=== PATIENT | male | born 1945 | race Caucasian/White ===

== ENCOUNTER → 2018-04-16 | Outpatient (CLI) | payer MEDICARE ==
[2018-04-16 15:43] LABS: HCT 42.5 % (39.0-53.0); HGB 13.7 gm/dL (13.0-17.5); MCH 31.2 pg (25.0-35.0); MCHC 32.3 g/dL (31.0-37.0); MCV 96.6 fL (80.0-100.0); Mean Platelet Volume 8.4; Platelet Count 120 k/uL (150-450); RDW 13.4 % (11.5-15.5); WBC 6.5 k/uL (3.8-10.6)
[2018-04-16 15:59] LABS: Anion Gap 7 mmol/L; Blood Urea Nitrogen 11 mg/dL (9-20); Carbon Dioxide 31 mmol/L (22-30); Chloride 108 mmol/L (98-107); Glucose 137 mg/dL (74-99); Sodium 146 mmol/L (137-145)
== END | disposition home or self-care (01) ==
LOC: LABPAT 15:13
PROVIDERS: ATTEND Internal Medicine Clinical Cardiac Electrophysiology
DX: Z01.812 Encounter for preprocedural laboratory examination (principal); I25.5 Ischemic cardiomyopathy; I48.0 Paroxysmal atrial fibrillation
CPT/HCPCS: 36415; 80051; 82565; 82947; 84520; 85027

== ENCOUNTER 2018-04-25 10:41 | Day surgery (SDC) | payer MEDICARE ==
[2018-04-19 09:58] VITALS: BMI 23.1
[~2018-04-25 10:41] MED LIST: ceFAZolin 1,000 MG in SODIUM CHLORIDE 0.9% IRRIGATIO 250 ML IRRIGATION ONE; ceFAZolin IN SWFI 2 GM/20 ML SYRINGE IVP ONE
[2018-04-25] MEDS: LACTATED RINGERS 1,000 ML IV SCH ×2 (11:43→18:06)
[2018-04-25] MEDS ORDERED: FAMOTIDINE 20 MG/2 ML VIAL ONE (12:06)
[2018-04-25] MEDS ORDERED: FAMOTIDINE 20 MG/2 ML VIAL IV ONE (12:09)
[2018-04-25 13:25] LABS: INR 1.9 (<1.2)
[2018-04-25] MEDS ORDERED: LIDOCAINE 1% INJ 10MG/ML (20 ML MDV) ONE (14:33)
[2018-04-25] MEDS ORDERED: fentaNYL (PF) 50 MCG/ML 2 ML AMP ONE (14:34)
[2018-04-25] MEDS ORDERED: MIDAZOLAM 2 MG/2 ML VIAL ONE (14:34)
[2018-04-25] MEDS ORDERED: PROPOFOL 10 MG/ML 20 ML VIAL IV ONE (14:34)
[2018-04-25] MEDS ORDERED: diphenhydrAMINE 50 MG/ML 1 ML VIAL ONE (14:34)
[2018-04-25] MEDS ORDERED: LIDOCAINE 1% INJ 10MG/ML (20 ML MDV) SQ ONE ×2 (15:13)
[2018-04-25] MEDS ORDERED: HYDROcodone/APAP 5-325MG 1 EACH TAB PO PRN (15:46)
[2018-04-25] MEDS ORDERED: ACETAMINOPHEN TAB 325 MG TAB PO PRN (15:46)
[2018-04-25] MEDS ORDERED: WARFARIN 3 MG TAB PO SCH (18:00)
[2018-04-25] MEDS ORDERED: ACETAMINOPHEN IV (For NPO) 1,000 MG in EMPTY BAG 1 BAG IVPB ONE (18:00)
[2018-04-25] MEDS: SODIUM CHLORIDE 0.9% 1,000 ML IV SCH (19:13)
[2018-04-25] MEDS ORDERED: ATORVASTATIN 40 MG TAB PO SCH (21:00)
[2018-04-25] MEDS ORDERED: ISOSORBIDE MONONITRATE ER 30 MG TAB.ER.24H PO SCH (21:00)
[2018-04-25] MEDS ORDERED: LISINOPRIL 2.5 MG TAB PO SCH (21:00)
[2018-04-25] MEDS ORDERED: METOPROLOL TARTRATE 50 MG TAB PO SCH (21:00)
[2018-04-25] MEDS: ceFAZolin IN SWFI 2 GM/20 ML SYRINGE IVP SCH (22:32)
--- NOTE | 2018-04-25 23:59 | PCN ---
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 He is brought in for ICD generator change for normal battery depletion. Patient was brought to the EP lab in a fasting state. Written informed consent was obtained prior to the procedure. The left shoulder area was prepped and draped as per protocol. 1% lidocaine was used for local anesthesia. A 4 cm incision was made directly over the previous surgical site and carried down to the level of the generator. The generator was explanted. The new generator was implanted. Partial capsulectomy was performed. The new generator was implanted and the wound was closed in 3 layers and dressed per protocol. The new generator was a Medtronic Visiaf MRI model number [id number], serial number [id number]. The Medtronic ICD lead was a chronic lead was 65 cm, model #6947, serial number [id number]. R-waves were 12.6 mV. Pacing impedance of 2, pacing threshold 1 V at 0.5 milliseconds. DFT testing under anesthesia was performed. Shock and T-wave protocol was used to induce ventricular fibrillation. This was adequately and appropriately detected at least sensitivity and successfully internally defibrillated with a 10-joule shock. The charge time 2.1 seconds. Shocking impedance 46 ohms. No post shock noise. The device was then reprogrammed to detect the VT and VF at 176 and 214 beats per minute respectively. Long detection intervals were programmed. He has a single- chamber ICD. The patient tolerated the procedure well without any acute complications. MMODL / IJN: [id number] /
[2018-04-26] MEDS: ceFAZolin IN SWFI 2 GM/20 ML SYRINGE IVP SCH ×3 (03:20→14:34)
[2018-04-26] MEDS: SODIUM CHLORIDE 0.9% 1,000 ML IV SCH (03:21)
[2018-04-26 06:36] LABS: Anion Gap 6 mmol/L; Blood Urea Nitrogen 14 mg/dL (9-20); Calcium 9.3 mg/dL (8.4-10.2); Carbon Dioxide 25 mmol/L (22-30); Chloride 110 mmol/L (98-107); Glucose 85 mg/dL (74-99); Magnesium 1.8 mg/dL (1.6-2.3); Sodium 141 mmol/L (137-145)
[2018-04-26 07:45] VITALS: TEMP 97.1
--- NOTE | 2018-04-26 08:19 | P.DS ---
Providers Attending physician: Chris Cabrera Primary care physician: Chanda Pang [facility] Course: Patient is doing well. No chest discomfort dizziness lightheadedness or palpitations Vitals are stable Blood pressure 121/78 mmHg pulse rate in the 50s afebrile Normal heart sounds Normal breath sounds ICD site is healed well Impression ICD generator change yesterday. DFT at 10 J Known ischemic cardio myopathy left ventricular ejection fraction severely reduced at 20% Suggest Discharge home after completion of IV antibiotics. I gave the patient instructions and will see him in 5 days in the office and follow with Dr. Ly as before Plan - Discharge Summary Discharge Rx Participant: No New Discharge Prescriptions: Continue Warfarin [Coumadin] 2 mg PO TU Warfarin [Coumadin] 3 mg PO SUMOWE Isosorbide Mononitrate ER [Imdur] 30 mg PO HS Atorvastatin [Lipitor] 40 mg PO HS Lisinopril [Zestril] 1.25 mg PO HS Acetaminophen [Tylenol] 500 mg PO BID Metoprolol Tartrate [Lopressor] 100 mg PO HS Metoprolol Tartrate [Lopressor] 100 mg PO W/LUNCH Lansoprazole 30 mg PO W/LUNCH Ferrous Sulfate [Feosol] 325 mg PO DAILY Cholecalciferol [Vitamin D3] 1,000 unit PO DAILY Discharge Medication List Acetaminophen [Tylenol] 500 mg PO BID 07/17/16 [History] Atorvastatin [Lipitor] 40 mg PO HS 07/17/16 [History] Cholecalciferol [Vitamin D3] 1,000 unit PO DAILY 07/17/16 [History] Ferrous Sulfate [Feosol] 325 mg PO DAILY 07/17/16 [History] Isosorbide Mononitrate ER [Imdur] 30 mg PO HS 07/17/16 [History] Lansoprazole 30 mg PO W/LUNCH 07/17/16 [History] Lisinopril [Zestril] 1.25 mg PO HS 07/17/16 [History] Metoprolol Tartrate [Lopressor] 100 mg PO HS 07/17/16 [History] Metoprolol Tartrate [Lopressor] 100 mg PO W/LUNCH 07/17/16 [History] Warfarin [Coumadin] 2 mg PO TUSA 07/17/16 [History] Warfarin [Coumadin] 3 mg PO SUMOWETHFR 07/17/16 [History] Follow up Appointment(s)/Referral(s): Srinath Ly MD [STAFF PHYSICIAN] - 1 Week (Device clinic 5 days, Dr. Ly as previously scheduled) Activity/Diet/Wound Care/Special Instructions: No driving for 24 hours, keep wound dry for 5 days PATIENT EDUCATION MATERIAL Instructions following a heart rhythm device implant. 1. Keep dressing DRY for 5 DAYS. You may cover the area with Saran or Cling Wrap, prior to a shower. 2. The dressing will be removed in the Device Clinic at [facility]. Absorbable sutures were used to close the wound. 3. Avoid raising the left arm above the shoulder level. 1 week restriction 4. Avoid arm movements, like backscratching, rubbing the head, or pulling on a cord. 4 weeks restriction 5. Gentle range of motion movements of the shoulder, closest to the incision should be performed to avoid a frozen shoulder. (Pendulum exercises of the shoulder) 6. The opposite arm may be used freely. 7. Avoid driving for 7 days. 8. Avoid activities such as golfing, swimming, weed whacking, lifting more than 10 pounds weight, bowling, gymnastics and weight training/lifting. (4 weeks restriction) 9. Activities such as wood chopping with an axe, pull-ups in the gymnasium, power lifting, arc-welding, being close to home induction cooktops will always be a problem. 10. Arm sling is only a reminder not to raise the arm above the head. You do not need to keep the arm completely immobilized. Your free to move the arm and use it and for normal activities. In case of any problems, please call [facility] [place], @ [phone], Attention: Device Clinic Device clinic follow-up in 5 days Follow-up with primary team foreman as previously scheduled Discharge Disposition: HOME SELF-CARE
--- NOTE | 2018-04-26 09:49 | XR ---
EXAMINATION TYPE: XR chest 2V DATE OF EXAM: 04/26/2018 COMPARISON: 01/01/2013 INDICATION: Lead placement check TECHNIQUE: Frontal and lateral views of the chest are obtained. FINDINGS: The heart size is normal. The pulmonary vasculature is normal. The lungs are clear. Pacemaker overlies left chest. Pacemaker lead is stable in position. No pneumot horax is evident. Cost phrenic angle on the right is excluded from the [id number]. IMPRESSION: 1. No acute pulmonary process. 2. No pneumothorax with left-sided pacemaker present.
[2018-04-26 11:35] VITALS: BP 137/81; PULSE 68; RESP 16
[2018-04-26] MEDS: LACTATED RINGERS 1,000 ML IV SCH (11:53)
[2018-04-26] MEDS ORDERED: METOPROLOL TARTRATE 50 MG TAB PO SCH (12:30)
[2018-04-26] MEDS ORDERED: PANTOPRAZOLE 40 MG TABLET PO SCH (12:30)
[2018-04-27] MEDS ORDERED: WARFARIN 2 MG TAB PO SCH (18:00)
== END 2018-04-26 16:26 | disposition home or self-care (01) ==
LOC: CATHEP 10:41 → 3SCARD 15:41 → CATHEP 04-26 16:26
PROVIDERS: ATTEND Internal Medicine Clinical Cardiac Electrophysiology
DX: I25.5 Ischemic cardiomyopathy (principal); Z45.02 Encounter for adjustment and management of automatic implantable cardiac defibrillator; I25.10 Atherosclerotic heart disease of native coronary artery without angina pectoris; I10 Essential (primary) hypertension; E78.5 Hyperlipidemia, unspecified; Z72.0 Tobacco use; I25.2 Old myocardial infarction; I48.0 Paroxysmal atrial fibrillation; E05.80 Other thyrotoxicosis without thyrotoxic crisis or storm; T46.2X5A Adverse effect of other antidysrhythmic drugs, initial encounter; Z79.01 Long term (current) use of anticoagulants; Z79.899 Other long term (current) drug therapy; Z88.5 Allergy status to narcotic agent
CPT/HCPCS: 93641; 33262; 80048; 83735; 85610; 71046; C1722; J2250; J1200; J0690 ×3; J2001; J3010; J0131; J2704

== ENCOUNTER 2019-03-28 18:00 | Emergency (ER) | payer MEDICARE ==
[2019-03-28 18:13] VITALS: BP 146/87; PULSE 59; RESP 18; TEMP 97.6
[2019-03-28 19:48] LABS: Glucose,Whole Blood 111 mg/dL (75-99)
[2019-03-28 20:54] LABS: Appearance,Urine Clear (Clear); Bilirubin,Urine Negative (Negative); Blood,Urine Negative (Negative); Color,Urine Light Yellow; Glucose,Urine (UA) Negative (Negative); Ketones,Urine Negative (Negative); Leukocyte Esterase,Urine Negative (Negative); Nitrite,Urine Negative (Negative); Protein,Urine Negative (Negative); Specific Gravity,Urine 1.008 (1.001-1.035); Urobilinogen,Urine <2.0 mg/dL (<2.0)
--- NOTE | 2019-03-28 20:59 | ED ---
Male Urogenital HPI - General Source: patient Mode of arrival: ambulatory Limitations: no limitations <Lakeisha Moreira - Last Filed: 03/28/19 23:38> <Chelsie Davis - Last Filed: 04/01/19 16:16> - General Chief complaint: Urogenital Stated complaint: frequent urination Time Seen by Provider: 03/28/19 19:19 - History of Present Illness Initial comments: 73-year-old male with history of heart failure (noncompliant with furosemide) presents emergency room for chief complaint frequent urination. Patient states for 4 months he has had frequent urination. He states he can no longer take it. Patient states he had a urological evaluation yesterday was started on a new medication which she has taken a total of 1 dose and was told something may be wrong with his prostate. Patient does not know the name of the medication. Patient states he continues to have to P multiple times throughout the day. He states he needs this fixed. Patient denies hematuria dysuria patient denies history of diabetes. Patient denies any abdominal pain diarrhea or vomiting constipation, back pain rectal pain fever or any other associated signs. Patient has no other complaints, denies CP SOB or LE edema. (Lakeisha Moreira) - Related Data Home Medications Medication Instructions Recorded Confirmed Acetaminophen [Tylenol] 500 mg PO BID 07/17/16 04/19/18 Atorvastatin [Lipitor] 40 mg PO HS 07/17/16 04/25/18 Cholecalciferol [Vitamin D3 (25 1,000 unit PO DAILY 07/17/16 04/19/18 Mcg = 1000 Iu)] Ferrous Sulfate [Feosol] 325 mg PO DAILY 07/17/16 04/19/18 Isosorbide Mononitrate ER [Imdur] 30 mg PO HS 07/17/16 04/25/18 Lansoprazole 30 mg PO W/LUNCH 07/17/16 04/25/18 Lisinopril [Zestril] 1.25 mg PO HS 07/17/16 04/25/18 Metoprolol Tartrate [Lopressor] 100 mg PO HS 07/17/16 04/25/18 Metoprolol Tartrate [Lopressor] 100 mg PO W/LUNCH 07/17/16 04/25/18 Warfarin [Coumadin] 2 mg PO TUSA 07/17/16 04/25/18 Warfarin [Coumadin] 3 mg PO SUMOWETHFR 07/17/16 04/25/18 Allergies Allergy/AdvReac Type Severity Reaction Status Date / Time No Known Allergies Allergy Verified 03/28/19 18:13 Review of Systems ROS Other: All systems not noted in ROS Statement are negative. <Lakeisha Moreira - Last Filed: 03/28/19 23:38> ROS Other: All systems not noted in ROS Statement are negative. <Chelsie Davis - Last Filed: 04/01/19 16:16> ROS Statement: Those systems with pertinent positive or pertinent negative responses have been documented in the HPI. Past Medical History Past Medical History: CVA/TIA, Eye Disorder, Hearing Disorder / Deafness, Hyperlipidemia, Myocardial Infarction ([place]) Additional Past Medical History / Comment(s): stroke-facial and left hand weakness, constipation, see Dr Rick PADRON. RT MAC. DEG. Last Myocardial Infarction Date:: unknown History of Any Multi-Drug Resistant Organisms: None Reported Past Surgical History: AICD, Orthopedic Surgery Additional Past Surgical History / Comment(s): left hip surgery,. COLONOSCOPY Past Anesthesia/Blood Transfusion Reactions: No Reported Reaction Type of Cardiac Device: AICD Device Placement Date:: 2009 Past Psychological History: No Psychological Hx Reported Smoking Status: Current every day smoker Past Alcohol Use History: None Reported Past Drug Use History: None Reported - Past Family History Mother Family Medical History: No Reported History <Lakeisha Moreira - Last Filed: 03/28/19 23:38> General Exam Limitations: no limitations <Lakeisha Moreira - Last Filed: 03/28/19 23:38> - General Exam Comments Initial Comments: General: The patient is awake and alert, in no distress, and does not appear acutely ill. Eye: Pupils are equal, round and reactive to light, extra-ocular movements are intact. No nystagmus. There is normal conjunctiva bilaterally. No signs of icterus. Cardiovascular: There is a regular rate and rhythm. No murmur, rub or gallop is appreciated. Respiratory: Lungs are clear to auscultation, respirations are non-labored, breath sounds are equal. No wheezes, stridor, rales, or rhonchi. Gastrointestinal: Soft, non-distended, non-tender abdomen without masses or organomegaly noted. There is no rebound or guarding present. No CVA tenderness. Bowel sounds are unremarkable. Enlarged rectum no pain on GERARDO. Musculoskeletal: Normal ROM, no tenderness. Strength 5/5. Sensation intact. Radial pulses equal bilaterally 2+. Neurological: A&O x 3. CN II-XII intact grossly, There are no obvious motor or sensory deficits. Coordination appears grossly intact. Speech is normal. Skin: Skin is warm and dry and no rashes or lesions are noted. Psychiatric: Cooperative, appropriate mood & affect, normal judgment. (Lakeisha Moreira) Course Vital Signs 03/28/19 18:10 Temperature 97.6 F Pulse Rate 59 L Respiratory 18 Rate Blood Pressure 146/87 O2 Sat by Pulse 100 Oximetry Medical Decision Making <Lakeisha Moreira - Last Filed: 03/28/19 23:38> <Chelsie Davis - Last Filed: 04/01/19 16:16> - Medical Decision Making 73-year-old male presenting for evaluation of frequent urination 4 months. Blood glucose 111. Patient has had urological evaluation in last 48 hours. 50 minutes after patient urinated patient had 260 cc in his urinary bladder denies any discomfort. No distention or abdominal pain. Patient's urinalysis unremarkable-no ketones or glucose. Patient has no flank pain or CVA tenderness. Patient had enlarged prostate and digital rectal examination. Patient states he has had a new medication as prescribed by urology however has only taken 1 dose today. At this time I do feel patient's frequent urination may be due to enlargement of prostate. No clinical signs of urinary retention/overflow causing frequency. I discussed the case with attending provider Dr. Davis at this time she is agreeable with impression and discharge of patient. Patient agreeable with urology f/u, return parameters and PCP f/u. No further questions all questions were answered to the best of my ability prior to discharge. (Lakeisha Moreira) I was available for consultation in the emergency department. The history and physical exam were done by the midlevel provider. I was consulted for this patients care. I reviewed the case with the midlevel provider and based on their presentation of the patient, I agree with the assessment, medical decision making and plan of care as documented. Chart was dictated using Gill[employer] dictation software. Attempts were made to correct any dictation errors however some typographical errors may persist. (Chelsie Davis) - Lab Data Lab Results 03/28/19 03/28/19 Range/Units 19:45 20:40 POC Glucose (mg/dL) 111 H (75-99) mg/dL POC Glu Side Stitching Machine Operator ID Luann Desir Urine Color Light Yellow Urine Appearance Clear (Clear) Urine pH 7.0 (5.0-8.0) Ur Specific [place] 1.008 (1.001-1.035) Urine Protein Negative (Negative) Urine Glucose (UA) Negative (Negative) Urine Ketones Negative (Negative) Urine Blood Negative (Negative) Urine Nitrite Negative (Negative) Urine Bilirubin Negative (Negative) Urine Urobilinogen <2.0 (<2.0) mg/dL Ur Leukocyte Esterase Negative (Negative) Disposition Is patient prescribed a controlled substance at d/c from ED?: No Time of Disposition: 20:58 <Lakeisha Moreira - Last Filed: 03/28/19 23:38> <Chelsie Davis - Last Filed: 04/01/19 16:16> Clinical Impression: Urinary frequency, Enlarged prostate Disposition: HOME SELF-CARE Condition: Good Additional Instructions: Please use medication as discussed. Please follow-up with urology in the next week. Please return to emergency room if the symptoms increase or worsen or for any other concerns. Referrals: Chanda Pang MD [Primary Care Provider] - 1-2 days Mukul Garcia MD [STAFF PHYSICIAN] - 1-2 days
== END 2019-03-28 21:42 | disposition home or self-care (01) ==
LOC: EC 18:00
DX: N40.1 Benign prostatic hyperplasia with lower urinary tract symptoms (principal); R35.0 Frequency of micturition; E78.5 Hyperlipidemia, unspecified; I50.9 Heart failure, unspecified; I25.2 Old myocardial infarction; F17.200 Nicotine dependence, unspecified, uncomplicated; Z79.01 Long term (current) use of anticoagulants; Z79.899 Other long term (current) drug therapy; Z95.810 Presence of automatic (implantable) cardiac defibrillator; Z86.73 Personal history of transient ischemic attack (TIA), and cerebral infarction without residual deficits
CPT/HCPCS: 36415; 81003; 99284

== ENCOUNTER 2021-08-06 17:37 | Observation (INO) | payer MEDICARE ==
[2021-08-06 20:02] LABS: Basophils % (A) 1 %; Eosinophils # (A) 0.1 k/uL (0-0.7); Eosinophils % (A) 1 %; HCT 42.7 % (39.0-53.0); HGB 13.9 gm/dL (13.0-17.5); Lymphocytes % (A) 17 %; MCH 32.6 pg (25.0-35.0); MCHC 32.5 g/dL (31.0-37.0); MCV 100.2 fL (80.0-100.0); Macrocytosis Slight; Mean Platelet Volume 11.5; Monocytes # (A) 0.3 k/uL (0-1.0); Monocytes % (A) 5 %; Neutrophils # (A) 4.6 k/uL (1.3-7.7); Neutrophils % (A) 74 %; RBC 4.26 m/uL (4.30-5.90); RDW 14.3 % (11.5-15.5); WBC 6.2 k/uL (3.8-10.6)
--- NOTE | 2021-08-06 20:02 | XR ---
EXAMINATION TYPE: XR chest 2V DATE OF EXAM: 08/06/2021 COMPARISON: April 26, 2018 HISTORY: Short of breath TECHNIQUE: FINDINGS: Heart is enlarged. There is pulmonary vascular congestion. There is bilateral pleural effus ions. There is left axillary pacemaker. Bony thorax is intact. IMPRESSION: There is mild chronic congestive heart failure. Bilateral pleural effusions. Abnormalitie s are new compared to the old exam.
[2021-08-06 20:17] LABS: ALT 24 U/L (4-49); AST 33 U/L (17-59); African American GFR (CKD) >90 (>60 ml/min/1.73 sqM); Albumin 3.7 g/dL (3.5-5.0); Alkaline Phosphatase 42 U/L (38-126); Anion Gap 10 mmol/L; Blood Urea Nitrogen 19 mg/dL (9-20); Carbon Dioxide 22 mmol/L (22-30); Chloride 108 mmol/L (98-107); Glucose 116 mg/dL (74-99); INR 1.9 (<1.2); Non-African American GFR(CKD) 78 (>60 ml/min/1.73 sqM); Partial Thromboplastin Time 26.5 sec (22.0-30.0); Prothrombin Time 18.9 sec (9.0-12.0); Sodium 140 mmol/L (137-145); Total Bilirubin 0.9 mg/dL (0.2-1.3)
[2021-08-06 20:21] LABS: Platelet Count 86 k/uL (150-450)
--- NOTE | 2021-08-06 21:00 | ED ---
General Adult HPI - General Chief complaint: Dizziness Stated complaint: SOB Source: patient, family Mode of arrival: wheelchair Limitations: no limitations - History of Present Illness Initial comments: 75-year-old male with past history of CVA, A. fib, ischemic cardiomyopathy with EF of 20% presents emergency department with shortness of breath. States that starting last night he became lightheaded, dizzy, short of breath. Denies any chest pain. Does admit to a nonproductive cough. No nausea, vomiting or diarrhea. No sick contacts. Patient is not on any diuresis. States he was but was taken off of this medication 2 years ago. He denies any shocks from his defibrillator. No ripping or tearing sensation to his back. No fevers. Denies any headaches or visual changes. He is on Coumadin. No other alleviating, precipitating or modifying factors - Related Data Home Medications Medication Instructions Recorded Confirmed Atorvastatin [Lipitor] 40 mg PO DAILY 07/17/16 08/06/21 Ferrous Sulfate [Feosol] 325 mg PO DAILY 07/17/16 08/06/21 Isosorbide Mononitrate ER [Imdur] 30 mg PO DAILY 07/17/16 08/06/21 Lansoprazole 30 mg PO DAILY 07/17/16 08/06/21 Metoprolol Tartrate [Lopressor] 100 mg PO BID-W/MEALS 07/17/16 08/06/21 Warfarin [Coumadin] 3 mg PO SUMOWETHFRSA 07/17/16 08/06/21 lisinopriL [Zestril] 1.25 mg PO DAILY 07/17/16 08/06/21 Cholecalciferol [Vitamin D3 (25 25 mcg PO DAILY 08/06/21 08/06/21 Mcg = 1000 Iu)] Allergies Allergy/AdvReac Type Severity Reaction Status Date / Time No Known Allergies Allergy Verified 08/06/21 21:30 Review of Systems ROS Statement: Those systems with pertinent positive or pertinent negative responses have been documented in the HPI. ROS Other: All systems not noted in ROS Statement are negative. Past Medical History Past Medical History: CVA/TIA, Eye Disorder, Hearing Disorder / Deafness, Hyperlipidemia, Myocardial Infarction ([place]) Additional Past Medical History / Comment(s): stroke-facial and left hand weakness, constipation, see Dr Rick Abbasi. [place]. RT MAC. DEG. Last Myocardial Infarction Date:: unknown History of Any Multi-Drug Resistant Organisms: None Reported Past Surgical History: AICD, Orthopedic Surgery Additional Past Surgical History / Comment(s): left hip surgery,. COLONOSCOPY Past Anesthesia/Blood Transfusion Reactions: No Reported Reaction Type of Cardiac Device: AICD Device Placement Date:: 2009 Past Psychological History: No Psychological Hx Reported Smoking Status: Current every day smoker Past Alcohol Use History: None Reported Past Drug Use History: None Reported - Past Family History Mother Family Medical History: No Reported History General Exam Limitations: no limitations Course Vital Signs 08/06/21 08/06/21 08/06/21 18:30 19:08 19:11 Temperature 97.6 F Pulse Rate 75 71 Respiratory 18 18 20 Rate Blood Pressure 110/62 106/79 O2 Sat by Pulse 97 95 Oximetry 08/06/21 08/06/21 08/06/21 19:45 21:14 23:01 Temperature Pulse Rate 102 H 109 H 109 H Respiratory 20 20 20 Rate Blood Pressure 106/79 120/82 120/94 O2 Sat by Pulse 98 99 98 Oximetry EKG Findings - EKG Comments: EKG Findings:: EKG demonstrates A. fib with a rate of 85. QRS 111. QTC of 431. Deep inverted T waves in V4 through V6. Significant baseline artifact. Medical Decision Making - Medical Decision Making Upon arrival patient is placed into room 16. Thorough history and physical exam is performed. 12-lead EKG does demonstrate atrial fibrillation. Laboratory scissor conducted. INR 1.9. BNP 12,800. Covid not detected. Chest x-ray demonstrates bilateral pleural effusions with mild chronic congestive heart failure. Patient given 40 mg of Lasix. Did recommend admission for diuresis and cardiology consultation. Spoke with Dr. Pang who agreed to admit the patient. Patient awaiting a bed on the floor in stable condition - Lab Data Result diagrams: 08/06/21 19:41 08/06/21 19:41 Lab Results 08/06/21 08/06/21 08/06/21 Range/Units 19:41 19:41 19:41 WBC 6.2 (3.8-10.6) k/uL RBC 4.26 L (4.30-5.90) m/uL Hgb 13.9 (13.0-17.5) gm/dL Hct 42.7 (39.0-53.0) % MCV 100.2 H (80.0-100.0) fL MCH 32.6 (25.0-35.0) pg MCHC 32.5 (31.0-37.0) g/dL RDW 14.3 (11.5-15.5) % Plt Count 86 L (150-450) k/uL MPV 11.5 Neutrophils % 74 % Lymphocytes % 17 % Monocytes % 5 % Eosinophils % 1 % Basophils % 1 % Neutrophils # 4.6 (1.3-7.7) k/uL Lymphocytes # 1.0 (1.0-4.8) k/uL Monocytes # 0.3 (0-1.0) k/uL Eosinophils # 0.1 (0-0.7) k/uL Basophils # 0.0 (0-0.2) k/uL Macrocytosis Slight PT 18.9 H (9.0-12.0) sec INR 1.9 H (<1.2) APTT 26.5 (22.0-30.0) sec Sodium 140 (137-145) mmol/L Potassium 4.0 (3.5-5.1) mmol/L Chloride 108 H (98-107) mmol/L Carbon Dioxide 22 (22-30) mmol/L Anion Gap 10 mmol/L BUN 19 (9-20) mg/dL Creatinine 0.95 (0.66-1.25) mg/dL Est GFR (CKD-EPI)AfAm >90 (>60 ml/min/1.73 sqM) Est GFR (CKD-EPI)NonAf 78 (>60 ml/min/1.73 sqM) Glucose 116 H (74-99) mg/dL Calcium 9.0 (8.4-10.2) mg/dL Total Bilirubin 0.9 (0.2-1.3) mg/dL AST 33 (17-59) U/L ALT 24 (4-49) U/L Alkaline Phosphatase 42 (38-126) U/L Troponin I (0.000-0.034) ng/mL NT-Pro-B Natriuret Pep pg/mL Total Protein 6.0 L (6.3-8.2) g/dL Albumin 3.7 (3.5-5.0) g/dL Coronavirus (PCR) (Not Detectd) 08/06/21 08/06/21 08/06/21 Range/Units 19:41 19:41 19:41 WBC (3.8-10.6) k/uL RBC (4.30-5.90) m/uL Hgb (13.0-17.5) gm/dL Hct (39.0-53.0) % MCV (80.0-100.0) fL MCH (25.0-35.0) pg MCHC (31.0-37.0) g/dL RDW (11.5-15.5) % Plt Count (150-450) k/uL MPV Neutrophils % % Lymphocytes % % Monocytes % % Eosinophils % % Basophils % % Neutrophils # (1.3-7.7) k/uL Lymphocytes # (1.0-4.8) k/uL Monocytes # (0-1.0) k/uL Eosinophils # (0-0.7) k/uL Basophils # (0-0.2) k/uL Macrocytosis PT (9.0-12.0) sec INR (<1.2) APTT (22.0-30.0) sec Sodium (137-145) mmol/L Potassium (3.5-5.1) mmol/L Chloride (98-107) mmol/L Carbon Dioxide (22-30) mmol/L Anion Gap mmol/L BUN (9-20) mg/dL Creatinine (0.66-1.25) mg/dL Est GFR (CKD-EPI)AfAm (>60 ml/min/1.73 sqM) Est GFR (CKD-EPI)NonAf (>60 ml/min/1.73 sqM) Glucose (74-99) mg/dL Calcium (8.4-10.2) mg/dL Total Bilirubin (0.2-1.3) mg/dL AST (17-59) U/L ALT (4-49) U/L Alkaline Phosphatase (38-126) U/L Troponin I <0.012 (0.000-0.034) ng/mL NT-Pro-B Natriuret Pep 25531 pg/mL Total Protein (6.3-8.2) g/dL Albumin (3.5-5.0) g/dL Coronavirus (PCR) Not Detected (Not Detectd) Disposition Clinical Impression: Acute respiratory insufficiency, A-fib, Acute exacerbation of CHF (congestive heart failure) Disposition: ADMITTED IP TO THIS [facility] Condition: Stable Is patient prescribed a controlled substance at d/c from ED?: No Decision to Admit Reason: Admit from EC Decision Date: 08/06/21 Decision Time: 21:03
[2021-08-06] MEDS ORDERED: FUROSEMIDE 10 MG/ML 4 ML VIAL IV STA (21:01)
[2021-08-06] MEDS ORDERED: NALOXONE 0.4 MG/ML 1 ML VIAL IV PRN (21:03)
[2021-08-06] MEDS ORDERED: WARFARIN 3 MG TAB PO STA (23:37)
[2021-08-06] MEDS ORDERED: WARFARIN 2 MG TAB PO SCH (23:45)
[2021-08-07] MEDS: METOPROLOL TARTRATE 50 MG TAB PO SCH ×3 (00:47→17:34)
[2021-08-07] MEDS ORDERED: FUROSEMIDE 10 MG/ML 4 ML VIAL IV SCH (06:00)
[2021-08-07 06:02] LABS: Basophils # (A) 0.1 k/uL (0-0.2); Basophils % (A) 1 %; Eosinophils # (A) 0.1 k/uL (0-0.7); Eosinophils % (A) 2 %; HCT 43.4 % (39.0-53.0); HGB 14.1 gm/dL (13.0-17.5); Hypochromasia Slight; Lymphocytes # (A) 1.6 k/uL (1.0-4.8); Lymphocytes % (A) 26 %; MCHC 32.5 g/dL (31.0-37.0); MCV 101.7 fL (80.0-100.0); Macrocytosis Slight; Monocytes # (A) 0.4 k/uL (0-1.0); Monocytes % (A) 6 %; Neutrophils # (A) 3.9 k/uL (1.3-7.7); Neutrophils % (A) 62 %; RBC 4.27 m/uL (4.30-5.90); RDW 14.1 % (11.5-15.5); WBC 6.3 k/uL (3.8-10.6)
[2021-08-07 06:03] LABS: Platelet Count 88 k/uL (150-450)
[2021-08-07 06:28] LABS: Calcium 9.8 mg/dL (8.4-10.2); Potassium 4.4 mmol/L (3.5-5.1)
[2021-08-07] MEDS: PANTOPRAZOLE 40 MG TABLET PO SCH (08:42)
[2021-08-07] MEDS: ATORVASTATIN 40 MG TAB PO SCH (08:43)
[2021-08-07] MEDS: CHOLECALCIFEROL 25 MCG (1000 IU) TABLET PO SCH (08:43)
[2021-08-07] MEDS: ISOSORBIDE MONONITRATE ER 30 MG TAB.ER.24H PO SCH (08:43)
[2021-08-07] MEDS: FERROUS SULFATE 325 MG TAB PO SCH (08:44)
[2021-08-07] MEDS: FUROSEMIDE 10 MG/ML 4 ML VIAL IV SCH ×2 (08:45→20:15)
--- NOTE | 2021-08-07 10:47 | P.CRDCN ---
History of Present Illness History of present illness: HISTORY OF PRESENTING ILLNESS Patient is a pleasant 75-year-old male with a history of hypertension, hyperlipidemia, coronary artery disease with prior PCI in the 90s, apparent cardiomyopathy status post AICD with shock per patient. Patient follows with Dr. Ly. He states that he has been doing very well and denies any chest pain or pressure. However more recently he has been getting short of breath with minimal activity and increased dyspnea and therefore presented to emergency [facility]. He denies any fevers or chills or cough. He states he is normally not on any diuretic at home. Denies any changes to his medications. Blood work shows hemoglobin 13.9, platelets 86, INR 1.9, BUN 19, creatinine 0.9, troponin normal 3, proBNP 12,800, coronavirus not detected. Chest x-ray shows mild chronic congestive heart failure with bilateral pleural effusions which are new compared to prior chest x-ray. EKG shows atrial fibrillation with normal axis and nonspecific ST-T changes in the lateral leads likely related to LVH and additional PVCs. He received IV Lasix and states he is feeling better however still with dyspnea was just moving around the bed. REVIEW OF SYSTEMS At the time of my exam: CONSTITUTIONAL: Denies fever or chills. CARDIOVASCULAR: Denies chest pain, shortness of breath, orthopnea, PND or palpitations. RESPIRATORY: Denies cough. GASTROINTESTINAL: Denies abdominal pain, diarrhea, constipation, nausea or vomiting. MUSCULOSKELETAL: Denies myalgias. NEUROLOGIC: Denies numbness, tingling or weakness. ENDOCRINE: Denies fatigue, weight change, polydipsia or polyurina. GENITOURINARY: Denies burning, hematuria or urgency with micturation. HEMATOLOGIC: Denies history of anemia or bleeding. PHYSICAL EXAMINATION Vital signs reviewed. CONSTITUTIONAL: No apparent distress. HEENT: Head is normocephalic. Pupils are equal, round. Sclerae anicteric. Mucous membranes of the mouth are moist. No JVD. No carotid bruit. CHEST EXAMINATION: Bilateral crackles at bases HEART EXAMINATION: Irregular rate and rhythm. S1, S2 heard. No murmurs, gallops or rub. ABDOMEN: Soft, nontender. Positive bowel sounds. EXTREMITIES: 2+ peripheral pulses, no lower extremity edema and no calf tenderness. NEUROLOGIC EXAMINATION: Patient is awake, alert and oriented x3. ASSESSMENT 1. Acute on chronic systolic heart failure 2. History of cardiomyopathy status post AICD 3. Coronary artery disease with prior PCI in the 90s, no current angina, troponin is normal 3 4. Persistent atrial fibrillation 5. Status post AICD 6. Hypertension 7. Hyperlipidemia PLAN Patient with symptoms consistent with heart failure and appears to have improved somewhat with diuretics. We will continue with diuretics and check 2-D echo. No significant angina-type symptoms. Further recommendations follow. Past Medical History Past Medical History: CVA/TIA, Eye Disorder, Hearing Disorder / Deafness, Hyperlipidemia, Myocardial Infarction ([place]) Additional Past Medical History / Comment(s): stroke-facial and left hand weakness, constipation, see Dr Rick Clarke&Oj PADRON. RT MAC. DEG. Last Myocardial Infarction Date:: unknown History of Any Multi-Drug Resistant Organisms: None Reported Past Surgical History: AICD, Orthopedic Surgery Additional Past Surgical History / Comment(s): left hip surgery,. COLONOSCOPY Past Anesthesia/Blood Transfusion Reactions: No Reported Reaction Type of Cardiac Device: AICD Device Placement Date:: 2009 Past Psychological History: No Psychological Hx Reported Smoking Status: Current every day smoker Past Alcohol Use History: None Reported Past Drug Use History: None Reported - Past Family History Mother Family Medical History: No Reported History Medications and Allergies Home Medications Medication Instructions Recorded Confirmed Type Atorvastatin [Lipitor] 40 mg PO DAILY 07/17/16 08/06/21 History Ferrous Sulfate [Feosol] 325 mg PO DAILY 07/17/16 08/06/21 History Isosorbide Mononitrate ER [Imdur] 30 mg PO DAILY 07/17/16 08/06/21 History Lansoprazole 30 mg PO DAILY 07/17/16 08/06/21 History Metoprolol Tartrate [Lopressor] 100 mg PO BID-W/MEALS 07/17/16 08/06/21 History Warfarin [Coumadin] 3 mg PO SUMOWETHFRSA 07/17/16 08/06/21 History lisinopriL [Zestril] 1.25 mg PO DAILY 07/17/16 08/06/21 History Cholecalciferol [Vitamin D3 (25 25 mcg PO DAILY 08/06/21 08/06/21 History Mcg = 1000 Iu)] Allergies Allergy/AdvReac Type Severity Reaction Status Date / Time No Known Allergies Allergy Verified 02/12/22 21:30 Physical Exam Vitals: Vital Signs Temp Pulse Resp BP Pulse Ox 08/07/21 08:54 68 17 121/96 98 08/07/21 06:28 97.9 F 66 17 113/102 97 08/06/21 23:01 109 H 20 120/94 98 08/06/21 21:14 109 H 20 120/82 99 08/06/21 19:45 102 H 20 106/79 98 08/06/21 19:11 71 20 106/79 95 08/06/21 19:08 18 08/06/21 18:30 97.6 F 75 18 110/62 97 Intake and Output 08/06/21 08/07/21 08/07/21 22:59 06:59 14:59 Intake Total 480 Output Total 1500 Balance -1020 Intake: Oral 480 Output: Urine 1500 Other: # Voids 6 Weight 68.039 kg Results 08/07/21 05:16 08/07/21 05:16 Cardiac Enzymes 08/06/21 08/06/21 08/06/21 Range/Units 19:41 19:41 22:12 AST 33 (17-59) U/L Troponin I <0.012 <0.012 (0.000-0.034) ng/mL 08/07/21 Range/Units 01:47 AST (17-59) U/L Troponin I <0.012 (0.000-0.034) ng/mL Coagulation 08/06/21 Range/Units 19:41 PT 18.9 H (9.0-12.0) sec APTT 26.5 (22.0-30.0) sec CBC 08/06/21 08/07/21 Range/Units 19:41 05:16 WBC 6.2 6.3 (3.8-10.6) k/uL RBC 4.26 L 4.27 L (4.30-5.90) m/uL Hgb 13.9 14.1 (13.0-17.5) gm/dL Hct 42.7 43.4 (39.0-53.0) % Plt Count 86 L 88 L (150-450) k/uL Comprehensive Metabolic Panel 08/06/21 08/07/21 Range/Units 19:41 05:16 Sodium 140 144 (137-145) mmol/L Potassium 4.0 4.4 (3.5-5.1) mmol/L Chloride 108 H 108 H (98-107) mmol/L Carbon Dioxide 22 29 (22-30) mmol/L BUN 19 19 (9-20) mg/dL Creatinine 0.95 1.02 (0.66-1.25) mg/dL Glucose 116 H 92 (74-99) mg/dL Calcium 9.0 9.8 (8.4-10.2) mg/dL AST 33 (17-59) U/L ALT 24 (4-49) U/L Alkaline Phosphatase 42 (38-126) U/L Total Protein 6.0 L (6.3-8.2) g/dL Albumin 3.7 (3.5-5.0) g/dL Current Medications Generic Name Dose Route Start Last Admin Trade Name Freq PRN Reason Stop Dose Admin Atorvastatin Calcium 40 mg 08/07/21 09:00 08/07/21 08:43 Atorvastatin 40 Mg Tab PO 40 mg DAILY MANOJ Administration Cholecalciferol 25 mcg 08/07/21 09:00 08/07/21 08:43 Cholecalciferol 25 Mcg (1000 Iu) Tablet PO 25 mcg DAILY MANOJ Administration Ferrous Sulfate 325 mg 08/07/21 09:00 08/07/21 08:44 Ferrous Sulfate 325 Mg Tab PO 325 mg DAILY MANOJ Administration Furosemide 40 mg 08/07/21 09:00 08/07/21 08:45 Furosemide 10 Mg/Ml 4 Ml Vial IV 40 mg Q12HR MANOJ Administration Isosorbide Mononitrate 30 mg 08/07/21 09:00 08/07/21 08:43 Isosorbide Mononitrate Er 30 Mg Tab.Er.24h PO 30 mg DAILY MANOJ Administration Lisinopril 1.25 mg 08/07/21 09:00 08/07/21 08:44 Lisinopril 2.5 Mg Tab PO 1.25 mg DAILY MANOJ Administration Metoprolol Tartrate 100 mg 08/06/21 23:45 08/07/21 08:41 Metoprolol Tartrate 50 Mg Tab PO 100 mg BID-W/MEALS MANOJ Administration Miscellaneous Information 0 each 08/06/21 23:56 Warfarin Per Pharmacy MISCELLANE DIRECTED PRN PER PROTOCOL Naloxone HCl 0.2 mg 08/06/21 21:03 Naloxone 0.4 Mg/Ml 1 Ml Vial IV Q2M PRN Opioid Reversal Pantoprazole Sodium 40 mg 02/13/22 07:30 08/07/21 08:42 Pantoprazole 40 Mg Tablet PO 40 mg [id number] MANOJ Administration Intake and Output 08/06/21 08/07/21 08/07/21 22:59 06:59 14:59 Intake Total 480 Output Total 1500 Balance -1020 Intake: Oral 480 Output: Urine 1500 Other: # Voids 6 Weight 68.039 kg 08/07/21 05:16 08/07/21 05:16
[2021-08-07 11:40] LABS: INR 1.66 (0.90-1.11); Prothrombin Time 17.8 sec (9.9-11.9)
--- NOTE | 2021-08-07 16:37 | HP ---
HISTORY AND PHYSICAL CHIEF COMPLAINTS: Dizziness and shortness of breath. HISTORY OF PRESENT ILLNESS: This 75-year-old gentleman with a past medical history of history of CVA, TIA, history of myocardial infarction, history of CHF with cardiomyopathy, ejection fraction 20% to 30%, being followed by Dr. Pang in the outpatient setting, was complaining of shortness of breath and dizziness. Patient came to [facility]. Chest x-ray showed CHF and bilateral pleural effusion. After Lasix, the patient is slightly better. Patient was admitted for further evaluation and treatment. There is no history of any fever, rigors or chills. No history of headache, loss of consciousness, seizures. PAST MEDICAL HISTORY: History of CHF, CVA, TIA, hyperlipidemia, myocardial infarction. HOME MEDICATIONS: Reviewed. They include vitamin D3, Coumadin, Lopressor, Zestril. Doses and other medications noted. ALLERGIES: NONE. FAMILY HISTORY: No history of heart disease or strokes in the family. SOCIAL HISTORY: Previous history of smoking. REVIEW OF SYSTEMS: Fourteen-point review of systems negative except as mentioned above. PHYSICAL EXAMINATION: Pulse is 96, blood pressure 120/60, respiration 18, temperature 97.6. HEENT: Conjunctivae normal. NECK: Jugular venous distention at the root of the neck. CARDIOVASCULAR: S1, S2 muffled. RESPIRATION: Breath sounds diminished at the bases. A few scattered rhonchi and crackles basally. ABDOMEN: Soft, non-tender. No mass palpable. LEGS: No edema. No swelling. NERVOUS SYSTEM: Higher functions as mentioned earlier. No focal deficit. SKIN: No ulcer, rash, bleeding. JOINTS: No active deforming arthropathy. LABS: WBC 6. hemoglobin 14.1, and INR is 1.66. Sodium 144, potassium 4.4. ASSESSMENT: 1. Congestive heart failure, acute exacerbation, with acute on chronic systolic dysfunction, ejection fraction 20%. 2. Ischemic cardiomyopathy. 3. History of AICD. 4. Cerebrovascular accident, transient ischemic attack. 5. Hypertension. RECOMMENDATIONS AND DISCUSSION: In this 75-year-old gentleman who presented with multiple medical issues, we will monitor the patient closely. Will resume the home medications. Monitor fluid and electrolyte balance closely. Intravenous Lasix. Cardiology consultation. Resume the rest of the medications. Prognosis guarded. Further recommendations to follow. Ensure oxygenation. Dr. Pang will follow tomorrow. MMODL / IJN: [id number] / MTDD
[2021-08-07] MEDS ORDERED: WARFARIN 5 MG TAB PO ONE (18:00)
--- NOTE | 2021-08-08 08:23 | P.DS ---
Providers Date of admission: 08/06/21 21:04 Expected date of discharge: 08/08/21 Attending physician: Chanda Pang Consults: 08/06/21 21:06 Consult Physician Urgent Consulting Provider: [facility] Consult Reason/Comments: acute exertional dyspnea, aechf, new onset afib Do you want consulting provider notified?: Yes Primary care physician: Chanda Pang Hospital Course: This is a 75-year-old male with a history of hypertension, hyperlipidemia, coronary artery disease with prior PCI in the s, apparent cardiomyopathy status post AICD with shock per patient. Patient follows with Dr. Ly. He states that he has been doing very well and denies any chest pain or pressure. However more recently he has been getting short of breath with minimal activity and increased dyspnea and therefore presented to emergency department. He denies any fevers or chills or cough. He states he is normally not on any diuretic at home. Denies any changes to his medications. Blood work shows hemoglobin 13.9, platelets 86, INR 1.9, BUN 19, creatinine 0.9, troponin normal 3, proBNP 12,800, coronavirus not detected. Chest x-ray shows mild chronic congestive heart failure with bilateral pleural effusions which are new compared to prior chest x-ray. EKG shows atrial fibrillation with normal axis and nonspecific ST-T changes in the lateral leads likely related to LVH and additional PVCs. He was seen by cardiology and started on Lasix 40 mg IV twice daily was feeling much rather, breathing was much improved. He denies having any lower extremity edema. He is very anxious to go home today. Echocardiogram will be obtained prior to discharge. Discharge diagnoses: Acute on chronic systolic heart failure History of cardiomyopathy status post AICD Coronary artery disease with prior PCI in the , no current angina, troponin is normal 3 Persistent atrial fibrillation Status post AICD Hypertension Hyperlipidemia History of CVA History of macular degeneration Discharge plan Home Greater than 35 minutes was utilized and coordinating patient's discharge. Impression and plan of care have been directed as dictated by the signing physician. Arabella Baxter nurse practitioner acting as scribe for signing physician.t Patient Condition at Discharge: Stable Plan - Discharge Summary Discharge Rx Participant: No New Discharge Prescriptions: New Furosemide [Lasix] 40 mg PO DAILY #30 tablet Potassium Chloride ER [K-Dur 20] 20 meq PO DAILY #30 tab Continue Warfarin [Coumadin] 3 mg PO SUMOWETHFRSA Isosorbide Mononitrate ER [Imdur] 30 mg PO DAILY Atorvastatin [Lipitor] 40 mg PO DAILY lisinopriL [Zestril] 1.25 mg PO DAILY Metoprolol Tartrate [Lopressor] 100 mg PO BID-W/MEALS Lansoprazole 30 mg PO DAILY Ferrous Sulfate [Feosol] 325 mg PO DAILY Cholecalciferol [Vitamin D3 (25 Mcg = 1000 Iu)] 25 mcg PO DAILY Discharge Medication List Atorvastatin [Lipitor] 40 mg PO DAILY 07/17/16 [History] Ferrous Sulfate [Feosol] 325 mg PO DAILY 07/17/16 [History] Isosorbide Mononitrate ER [Imdur] 30 mg PO DAILY 07/17/16 [History] Lansoprazole 30 mg PO DAILY 07/17/16 [History] Metoprolol Tartrate [Lopressor] 100 mg PO BID-W/MEALS 07/17/16 [History] Warfarin [Coumadin] 3 mg PO SUMOWETHFRSA 07/17/16 [History] lisinopriL [Zestril] 1.25 mg PO DAILY 07/17/16 [History] Cholecalciferol [Vitamin D3 (25 Mcg = 1000 Iu)] 25 mcg PO DAILY 08/06/21 [History] Furosemide [Lasix] 40 mg PO DAILY #30 tablet 08/08/21 [Rx] Potassium Chloride ER [K-Dur 20] 20 meq PO DAILY #30 tab 08/08/21 [Rx] Follow up Appointment(s)/Referral(s): Chanda Pang MD [Primary Care Provider] - 1 Week Discharge Disposition: HOME SELF-CARE
[2021-08-08] MEDS: METOPROLOL TARTRATE 50 MG TAB PO SCH ×2 (08:25→19:34)
[2021-08-08] MEDS: FUROSEMIDE 10 MG/ML 4 ML VIAL IV SCH (08:25)
[2021-08-08] MEDS: ISOSORBIDE MONONITRATE ER 30 MG TAB.ER.24H PO SCH (08:25)
[2021-08-08] MEDS: CHOLECALCIFEROL 25 MCG (1000 IU) TABLET PO SCH (08:26)
[2021-08-08] MEDS: FERROUS SULFATE 325 MG TAB PO SCH (08:26)
[2021-08-08] MEDS: ATORVASTATIN 40 MG TAB PO SCH (08:26)
[2021-08-08] MEDS: PANTOPRAZOLE 40 MG TABLET PO SCH (08:26)
[2021-08-08 08:32] LABS: INR 2.1 (<1.2); Prothrombin Time 21.3 sec (9.0-12.0)
--- NOTE | 2021-08-08 10:18 | P.PN ---
Subjective Progress Note Date: 08/08/21 HISTORY OF PRESENT ILLNESS: Patient is a pleasant 75-year-old male with a history of hypertension, hyperlipidemia, coronary artery disease with prior PCI in the 90s, apparent cardiomyopathy status post AICD with shock per patient. Patient follows with Dr. Ly. He states that he has been doing very well and denies any chest pain or pressure. However more recently he has been getting short of breath with minimal activity and increased dyspnea and therefore presented to emergency department. He denies any fevers or chills or cough. He states he is normally not on any diuretic at home. Denies any changes to his medications. Blood work shows hemoglobin 13.9, platelets 86, INR 1.9, BUN 19, creatinine 0.9, troponin normal 3, proBNP 12,800, coronavirus not detected. Chest x-ray shows mild chronic congestive heart failure with bilateral pleural effusions which are new compared to prior chest x-ray. EKG shows atrial fibrillation with normal axis and nonspecific ST-T changes in the lateral leads likely related to LVH and additional PVCs. He received IV Lasix and states he is feeling better however still with dyspnea was just moving around the bed. 08/08/2021 Patient examined this morning at the bedside. Patient denies chest pain or pressure. He denies shortness of breath. Patient remains on IV Lasix 40 mg every 12 hours. Telemetry reveals atrial fibrillation with controlled ventricular rate. Patient is anticoagulated with Coumadin. INR today 2.1 PHYSICAL EXAM: VITAL SIGNS: Reviewed. GENERAL: Well-developed in no acute distress. NECK: Supple. No JVD or thyromegaly LUNGS: Respirations even and unlabored. Lungs essentially clear to auscultation bilaterally. HEART: Irregular rate and rhythm. S1 and S2 heard. EXTREMITIES: Normal range of motion. No clubbing or cyanosis. Peripheral pulses intact. No lower extremity edema ASSESSMENT: 1. Acute on chronic systolic heart failure 2. History of cardiomyopathy status post AICD 3. Coronary artery disease with prior PCI in the s, no current angina, troponin is normal 3 4. Persistent atrial fibrillation 5. Status post AICD 6. Hypertension 7. Hyperlipidemia PLAN: Continue current cardiac medications Discontinue IV lasix Resume oral lasix Patient is stable for discharge home today from a cardiac standpoint Patient to follow up outpatient with Dr. Ly Nurse practitioner note has been reviewed by physician. Signing provider agrees with the documented findings, assessment, and plan of care. Objective - Vital Signs Vital signs: Vital Signs Temp 97.7 F 08/08/21 07:00 Pulse 81 08/08/21 07:00 Resp 16 08/08/21 07:00 BP 112/70 08/08/21 07:00 Pulse Ox 96 08/08/21 07:00 Intake & Output 08/07/21 08/08/21 08/08/21 18:59 06:59 18:59 Intake Total 300 Balance 300 Weight 68.039 kg Intake: Oral 300 Other: Voiding Method Toilet # Voids 5 - Labs CBC & Chem 7: 08/07/21 05:16 08/07/21 05:16 Labs: Abnormal Lab Results - Last 24 Hours (Table) 08/07/21 08/08/21 Range/Units 05:16 07:53 PT 17.8 H 21.3 H (9.9-11.9) sec INR 1.66 H 2.1 H (0.90-1.11)
[2021-08-08] MEDS ORDERED: ACETAMINOPHEN TAB 325 MG TAB PO PRN (11:02)
[2021-08-08 11:09] LABS: African American GFR (CKD) 81.4 (60.0-200.0); Anion Gap 12.9 mmol/L (10.00-18.00); BUN/Creat Ratio 21.26 Ratio (12.00-20.00); Blood Urea Nitrogen 21.9 mg/dL (9.0-27.0); Calcium 9.6 mg/dL (8.7-10.3); Carbon Dioxide 29.3 mmol/L (20.0-27.5); Non-African American GFR(CKD) 70.2 (60.0-200.0); Potassium 3.9 mmol/L (3.5-5.5)
[2021-08-08 11:29] LABS: Basophils # (A) 0.04 X 10*3/uL (0.00-0.10); Basophils % (A) 0.6 %; Eosinophils % (A) 1.6 %; HCT 43.7 % (39.6-50.0); Immature Grans, Automated 0.3 %; Lymphocytes # (A) 1.52 X 10*3/uL (0.90-5.00); Lymphocytes % (A) 23.9 %; MCH 30.9 pg (27.0-32.0); MCV 96.5 fL (80.0-97.0); Mean Platelet Volume 13.5 fL (9.5-12.2); Monocytes # (A) 0.57 X 10*3/uL (0.20-1.00); Monocytes % (A) 8.9 %; NRBC Per 100 WBC 0 /100 WBCS (0.0-0.0); Neutrophils # (A) 4.12 X 10*3/uL (1.80-7.70); Neutrophils % (A) 64.7 %; Platelet Count 93 X 10*3/uL (140-440); RBC 4.53 X 10*6/uL (4.40-5.60); WBC 6.37 X 10*3/uL (4.50-10.00)
[2021-08-08] MEDS ORDERED: WARFARIN 3 MG TAB PO ONE (18:00)
--- NOTE | 2021-08-08 18:31 | ECHOF ---
Referral Reason:re: LV function MEASUREMENTS -------- HEIGHT: 188.0 cm WEIGHT: 68.0 kg BP: 119/63 RVIDd: 3.3 cm (< 3.3) IVSd: 1.1 cm (0.6 - 1.1) LVIDd: 6.3 cm (3.9 - 5.3) LVPWd: 1.1 cm (0.6 - 1.1) IVSs: 1.2 cm LVIDs: 6.0 cm LVPWs: 1.6 cm LA Diam: 4.1 cm (2.7 - 3.8) LAESV Index (A-L): 33.60 ml/m Ao Diam: 3.7 cm (2.0 - 3.7) MV EXCURSION: 19.315 mm (> 18.000) MV EF SLOPE: 151 mm/s (70 - 150) EPSS: 2.0 cm RAP: 5.00 mmHg RVSP: 34.65 mmHg FINDINGS -------- Atrial fibrillation. This was a technically adequate study. The left ventricle is mildly dilated. There is borderline concentric left ventricular hypertrophy. There is severe global hypokinesis of LV . Overall left ventricular systolic function is severely impaired with, an EF < 20%. The right ventricle is mildly enlarged. LA is moderately dilated 34-39 ml/m2 The right atrial size is normal. Interatrial and interventricular septum intact. There is mild aortic valve sclerosis. Trace to mild aortic regurgitation. The mitral valve leaflets are mildly thickened. [id number] mitral regurgitation is present. The tricuspid valve appears structurally normal. Moderate to severe tricuspid regurgitation present . There is mild pulmonary hypertension. The right ventricular systolic pressure, as measured by D oppler, is 34.65mmHg. Trace/mild (physiologic) pulmonic regurgitation. The aortic root size is normal. Normal inferior vena cava with normal inspiratory collapse consistent with estimated right atrial pre ssure of 5 mmHg. There is no pericardial effusion. CONCLUSIONS -------- 1. The left ventricle is mildly dilated. 2. There is borderline concentric left ventricular hypertrophy. 3. There is severe global hypokinesis of LV . 4. Overall left ventricular systolic function is severely impaired with, an EF < 20%. 5. The right ventricle is mildly enlarged. 6. LA is moderately dilated 34-39 ml/m2 7. Trace to mild aortic regurgitation. 8. The mitral valve leaflets are mildly thickened. 9. [id number] mitral regurgitation is present. 10. Moderate to severe tricuspid regurgitation present. 11. There is mild pulmonary hypertension. 12. Trace/mild (physiologic) pulmonic regurgitation. 13. There is no pericardial effusion. [employer] EX[employer]ACTOR: PAPO Bell
[2021-08-09] MEDS: METOPROLOL TARTRATE 50 MG TAB PO SCH (07:34)
[2021-08-09 07:39] VITALS: BP 107/74; PULSE 42; RESP 24; TEMP 97.8
[2021-08-09 07:42] LABS: INR 2.3 (<1.2); Prothrombin Time 23.3 sec (9.0-12.0)
[2021-08-09 08:24] LABS: Magnesium 1.8 mg/dL (1.6-2.3); Potassium 3.5 mmol/L (3.5-5.1)
[2021-08-09] MEDS ORDERED: FUROSEMIDE 40 MG TAB PO SCH (09:00)
[2021-08-09] MEDS: CHOLECALCIFEROL 25 MCG (1000 IU) TABLET PO SCH (09:38)
[2021-08-09] MEDS: FERROUS SULFATE 325 MG TAB PO SCH (09:38)
[2021-08-09] MEDS: PANTOPRAZOLE 40 MG TABLET PO SCH (09:38)
[2021-08-09] MEDS: ISOSORBIDE MONONITRATE ER 30 MG TAB.ER.24H PO SCH (09:38)
[2021-08-09] MEDS: ATORVASTATIN 40 MG TAB PO SCH (09:38)
[2021-08-09] MEDS ORDERED: WARFARIN 3 MG TAB PO ONE (18:00)
== END 2021-08-09 11:07 | disposition home or self-care (01) ==
LOC: EC 17:37 → 6NMEDSUR 21:04
PROVIDERS: ADMIT Internal Medicine; ATTEND Internal Medicine
DX: I11.0 Hypertensive heart disease with heart failure (principal); I50.23 Acute on chronic systolic (congestive) heart failure; I25.10 Atherosclerotic heart disease of native coronary artery without angina pectoris; I27.20 Pulmonary hypertension, unspecified; I25.5 Ischemic cardiomyopathy; I48.19 Other persistent atrial fibrillation; E78.5 Hyperlipidemia, unspecified; F17.200 Nicotine dependence, unspecified, uncomplicated; Z20.822 Contact with and (suspected) exposure to COVID-19; R53.1 Weakness; H35.30 Unspecified macular degeneration; K59.00 Constipation, unspecified; I49.3 Ventricular premature depolarization; I25.2 Old myocardial infarction; H91.90 Unspecified hearing loss, unspecified ear; Z95.810 Presence of automatic (implantable) cardiac defibrillator; Z86.73 Personal history of transient ischemic attack (TIA), and cerebral infarction without residual deficits; Z98.61 Coronary angioplasty status; Z79.899 Other long term (current) drug therapy; Z79.01 Long term (current) use of anticoagulants
CPT/HCPCS: 99285; 96372 ×4; 36415; 93005; 93306; 83880; 80053; 80048 ×2; 83735; 84132; 84484 ×2; 85025 ×3; 85610 ×4; 85730; 87635; 71046; G0378 ×4; J1940 ×3

== ENCOUNTER 2022-09-04 07:00 | Inpatient (IN) | payer MEDICARE ==
[2022-09-04] MEDS ORDERED: ASPIRIN 81 MG PO STA (07:36)
[2022-09-04] MEDS ORDERED: SODIUM CHLORIDE 0.9% 1,000 ML IV STA ×2 (07:36→09:11)
[2022-09-04] MEDS ORDERED: METOPROLOL TARTRATE 50 MG TAB PO STA (07:37)
[2022-09-04] MEDS ORDERED: APIXABAN 5 MG TAB PO STA (07:37)
[2022-09-04 07:56] LABS: Basophils # (A) 0.1 k/uL (0-0.2); Basophils % (A) 1 %; Eosinophils # (A) 0.2 k/uL (0-0.7); Eosinophils % (A) 4 %; HGB 11.6 gm/dL (13.0-17.5); Lymphocytes # (A) 1.4 k/uL (1.0-4.8); Lymphocytes % (A) 31 %; MCH 32.1 pg (25.0-35.0); MCHC 33.1 g/dL (31.0-37.0); MCV 97.1 fL (80.0-100.0); Mean Platelet Volume 9.9; Monocytes # (A) 0.2 k/uL (0-1.0); Monocytes % (A) 5 %; Neutrophils # (A) 2.4 k/uL (1.3-7.7); Neutrophils % (A) 55 %; Platelet Count 105 k/uL (150-450); RBC 3.61 m/uL (4.30-5.90); WBC 4.3 k/uL (3.8-10.6)
--- NOTE | 2022-09-04 07:59 | ED ---
General Adult HPI - General Chief complaint: Dizziness Stated complaint: Dizziness, Chest Pain Time Seen by Provider: 09/04/22 07:27 Source: patient, RN notes reviewed, old records reviewed Mode of arrival: ambulatory Limitations: no limitations - History of Present Illness Initial comments: Patient is a 77-year-old male with past medical history remarkable for A. fib, AICD, recent stent placed on August 30, CAD, prior CVA, hypertension, hyperlipidemia, acid reflux presents emergency Department with chest pain. States it is all over his chest. Has been on and off for the last 12 hours or so, stating that it started later last night after dinner. Has poor description of it. States it is not radiating. States it seems to appear all over his [address]. Sometimes it is worse with deep inspiration, however it is not consistent. Denies any diaphoresis, nausea, vomiting. Does feel some mild dizziness which he describes as mild lightheadedness that is also intermittent. He denies it currently.. States since his discharge from the hospital on August 31, he has had some degree of chest pain approximate 4-5 out of 10 baseline. States his chest pain today is approximately 7-8 out of 10 which is why presents emergency department. His no known associated symptoms. States he has been compliant with medications but did not take them this morning. Presents for further evaluation at this time. Patient does have chronically low blood pressures running in the systolics of 90s to low 100s. He was switched from Coumadin to eliquis this previous admission. Is on metoprolol 100 mg twice a day. - Related Data Home Medications Medication Instructions Recorded Confirmed Atorvastatin [Lipitor] 40 mg PO HS 07/17/16 09/04/22 Ferrous Sulfate [Feosol] 325 mg PO DAILY 07/17/16 09/04/22 Isosorbide Mononitrate ER [Imdur] 30 mg PO DAILY 07/17/16 09/04/22 Lansoprazole 30 mg PO DAILY 07/17/16 09/04/22 Cholecalciferol [Vitamin D3 (25 25 mcg PO DAILY 08/06/21 09/04/22 Mcg = 1000 Iu)] Eye Vitamin (Unknown Brand) 1 tab PO DAILY 08/11/22 09/04/22 Saw [place] 500 mg PO DAILY 08/11/22 09/04/22 Albuterol Inhaler [Ventolin Hfa 2 puff INHALATION RT-Q4H PRN 08/17/22 09/04/22 Inhaler] Previous Rx's Medication Instructions Recorded Apixaban [Eliquis] 5 mg PO BID #60 tab 08/31/22 Aspirin EC [Ecotrin Low Dose] 81 mg PO DAILY #0 08/31/22 Clopidogrel [Plavix] 75 mg PO DAILY #30 tab 08/31/22 Dapagliflozin Propanediol [Farxiga] 10 mg PO DAILY #30 tab 08/31/22 Furosemide [Lasix] 40 mg PO DAILY #30 tablet 08/31/22 Metoprolol Tartrate [Lopressor] 100 mg PO BID #60 tablet 08/31/22 Potassium Chloride ER [K-Dur 20] 20 meq PO DAILY #30 tab 08/31/22 lisinopriL 2.5 mg PO DAILY #30 tablet 08/31/22 Allergies Allergy/AdvReac Type Severity Reaction Status Date / Time No Known Allergies Allergy Verified 09/04/22 16:39 Review of Systems ROS Statement: Those systems with pertinent positive or pertinent negative responses have been documented in the HPI. Review of Systems: CONST: Denies fever EYES: Denies blurry vision ENT: Denies nasal congestion C/V: Endorses chest pain RESP: Denies shortness of breath GI: Denies abdominal pain : Denies dysuria SKIN: Denies rash. MSK: Denies joint pain. NEURO: Denies headache ROS Other: All systems not noted in ROS Statement are negative. Past Medical History Past Medical History: Atrial Fibrillation, CVA/TIA, Eye Disorder, Hearing Disorder / Deafness, Hyperlipidemia, Myocardial Infarction ([place]), Prostate Disorder Additional Past Medical History / Comment(s): stroke-facial and left hand weakness, constipation, [place] in 1990. CHEESH-NA. RT MAC. DEG. cataracts, shots in the eye. retina issues. Last Myocardial Infarction Date:: 1990 History of Any Multi-Drug Resistant Organisms: None Reported Past Surgical History: AICD, Heart Catheterization With Stent, Orthopedic Surgery Additional Past Surgical History / Comment(s): left hip surgery,. COLONOSCOPY Past Anesthesia/Blood Transfusion Reactions: No Reported Reaction Date of Last Stent Placement:: 1990 Type of Cardiac Device: AICD Device Placement Date:: 2009 Past Psychological History: No Psychological Hx Reported Smoking Status: Former smoker Past Alcohol Use History: None Reported Past Drug Use History: None Reported - Past Family History Mother Family Medical History: No Reported History General Exam - General Exam Comments Initial Comments: General: Appears in no acute distress. HEAD: Normal with no signs of head trauma. EYES: PERRLA, EOMI, conjunctiva normal, no discharge. ENT: Hearing grossly intact, normal oropharynx. RESPIRATORY: Clear breath sounds bilaterally. No wheezes, rales, or rhonchi. C/V: Irregular rate and rhythm. S1 and S2 auscultated. No peripheral edema. Peripheral pulses 2+ and intact throughout. Chest pain not reproducible on palpation. ABD: Abd is soft, nontender, nondistended EXT: Normal range of motion, no obvious deformity SKIN: No rashes or lesions observed on exposed skin. NEURO: Alert and oriented 4. No acute focal sensory strength deficits. Limitations: no limitations Course Vital Signs 09/04/22 09/04/22 09/04/22 07:01 08:15 08:27 Temperature 97.7 F Pulse Rate 141 H 98 96 Respiratory 18 18 18 Rate Blood Pressure 96/65 107/65 92/71 O2 Sat by Pulse 99 98 96 Oximetry 09/04/22 09/04/22 09/04/22 10:18 11:28 12:13 Temperature Pulse Rate 89 100 115 H Respiratory 18 18 18 Rate Blood Pressure 104/71 93/66 103/75 O2 Sat by Pulse 100 100 100 Oximetry 09/04/22 14:38 Temperature Pulse Rate 120 H Respiratory 18 Rate Blood Pressure 89/78 O2 Sat by Pulse 100 Oximetry Medical Decision Making - Medical Decision Making Was pt. sent in by a medical professional or institution (, PA, RETAIL SALES TEAMMATE, urgent care, hospital, or [place] [facility] facility...) When possible be specific @ -No Did you speak to anyone other than the patient for history (EMS, parent, family, police, friend...)? What history was obtained from this source @ -No Did you review nursing and triage notes (agree or disagree)? Why? @ -I reviewed and agree with nursing and triage notes Were old charts reviewed (outside hosp., previous admission, EMS record, old EKG, old radiological studies, urgent care reports/EKG's, [place] [facility] facility records)? Report findings @ -Yes, old charts reviewed from most recent admission in August 2022 including EKG. Differential Diagnosis (chest pain, altered mental status, abdominal pain women, abdominal pain men, vaginal bleeding, weakness, fever, dyspnea, syncope, headache, dizziness, GI bleed, back pain, seizure, CVA, palpatations, mental health, musculoskeletal)? @ -Differential Chest Pain: Stable Angina, Unstable Angina, STEMI, NSTEMI Aortic Dissection, Pneumothorax, Musculoskeletal, Esophageal Spasm GERD, Cholecystitis, Pancreatitis, Zoster, this is not meant to be an all-inclusive list. EKG interpreted by me (3pts min.). @ -As above X-rays interpreted by me (1pt min.). @ -Chest x-ray reveals no obvious acute cardio pulmonary process. CT interpreted by me (1pt min.). @ -None done U/S interpreted by me (1pt. min.). @ -None done What testing was considered but not performed or refused? (CT, X-rays, U/S, labs)? Why? @ -None What meds were considered but not given or refused? Why? @ -None Did you discuss the management of the patient with other professionals (professionals i.e. , PA, RETAIL SALES TEAMMATE, lab, RT, psych nurse, social service director, warehouseman, teacher, landcare officer, director case)? Give summary @ -No Was smoking cessation discussed for >3mins.? @ -No Was critical care preformed (if so, how long)? @ -No Were there social determinants of health that impacted care today? How? (Homelessness, low income, unemployed, alcoholism, drug addiction, transportation, low edu. Level, literacy, decrease access to med. care, prison, rehab)? @ -No Was there de-escalation of care discussed even if they declined (Discuss DNR or withdrawal of care, Hospice)? DNR status @ -No What co-morbidities impacted this encounter? (DM, HTN, Smoking, COPD, CAD, Cancer, CVA, ARF, Chemo, Hep., AIDS, mental health diagnosis, sleep apnea, morbid obesity)? @ -History of A. fib, recent cardiac stent with history of COPD, AICD history. Recent EF in July 2021 was 20%. Was patient admitted / discharged? Hospital course, mention meds given and route, prescriptions, significant lab abnormalities, going to OR and other pertinent info. @ -Based on the patient's presentation and physical exam, I'm concerned for any pulmonary etiology for his current symptoms. We will obtain cardiac labs. He recently had a stent in his on alkalosis as well as metoprolol. He is in A. fib with RVR when he presents with a heart rate in the 140s. EKG shows it better controlled with heart rate in the 110s. He is mostly between 110 and 125 when I speak with him in the room. We will give him morning doses of his medications including metoprolol and Eliquis. He will receive 324 mg of aspirin. His chest pain does seem somewhat chronic but an exacerbation of her that was slightly worse today. Patient is chronically having low blood pressures and we will administer 1 L fluid bolus prior to attempting nitroglycerin so we do not cause hypotension. Patient was in agreement this plan. He is resting comfortably at this time. Patient is 5 days out from his cardiac cath and stenting procedure. States he has been compliant with medications since discharge 4 days ago. Patient's laboratory studies remarkable for a somewhat chronically elevated troponin of 0.530 which is expected considering his recent cardiac catheterization. BNP slightly elevated. Remainder of labs are within normal limits. EKG unchanged from prior EKGs. We did obtain a repeat which was unchanged. Chest x-ray shows no acute cardiopulmonary process. I discussed results with the patient. He is currently symptom-free. Heart score is elevated at 4-5. Patient is no longer in A. fib as the metoprolol seemed to have converted into normal sinus rhythm. He is feeling improved at this time. I discussed admission for observation and he was in agreement this plan. We will trend the troponin. Cardiology is consulted. He was in agreement with the plan. I spoke with the admitting physician, Dr. Pang who accepted the patient. Undiagnosed new problem with uncertain prognosis? @ -No Drug Therapy requiring intensive monitoring for toxicity (Heparin, Nitro, I nsulin, Cardizem)? @ -No Were any procedures done? @ -No Diagnosis/symptom? @ -Chest pain Acute, or Chronic, or Acute on Chronic? @ -Acute on chronic Uncomplicated (without systemic symptoms) or Complicated (systemic symptoms)? @ -Uncomplicated Side effects of treatment? @ -none Exacerbation, Progression, or Severe Exacerbation] @ -no Poses a threat to life or bodily function? @ -Yes, can result in significant morbidity and mortality depending on etiology. Diagnosis/symptom? @ -A. fib with RVR Acute, or Chronic, or Acute on Chronic? @ -Acute on chronic Uncomplicated (without systemic symptoms) or Complicated (systemic symptoms)? @ -Uncomplicated Side effects of treatment? @ -none Exacerbation, Progression, or Severe Exacerbation] @ -no Poses a threat to life or bodily function? @ -Yes, if untreated can result in significant morbidity and mortality. Diagnosis/symptom? @ -Elevated troponin Acute, or Chronic, or Acute on Chronic? @ -Acute on chronic Uncomplicated (without systemic symptoms) or Complicated (systemic symptoms)? @ -Uncomplicated Side effects of treatment? @ -none Exacerbation, Progression, or Severe Exacerbation] @ -no Poses a threat to life or bodily function? @ -no - Lab Data Result diagrams: 09/04/22 07:43 09/04/22 07:43 Lab Results 09/04/22 09/04/22 09/04/22 Range/Units 07:43 07:43 07:43 WBC 4.3 (3.8-10.6) k/uL RBC 3.61 L (4.30-5.90) m/uL Hgb 11.6 L (13.0-17.5) gm/dL Hct 35.0 L (39.0-53.0) % MCV 97.1 (80.0-100.0) fL MCH 32.1 (25.0-35.0) pg MCHC 33.1 (31.0-37.0) g/dL RDW 14.0 (11.5-15.5) % Plt Count 105 L (150-450) k/uL MPV 9.9 Neutrophils % 55 % Lymphocytes % 31 % Monocytes % 5 % Eosinophils % 4 % Basophils % 1 % Neutrophils # 2.4 (1.3-7.7) k/uL Lymphocytes # 1.4 (1.0-4.8) k/uL Monocytes # 0.2 (0-1.0) k/uL Eosinophils # 0.2 (0-0.7) k/uL Basophils # 0.1 (0-0.2) k/uL PT 11.6 (9.0-12.0) sec INR 1.1 (<1.2) APTT 22.9 (22.0-30.0) sec Sodium 140 (137-145) mmol/L Potassium 3.8 (3.5-5.1) mmol/L Chloride 107 (98-107) mmol/L Carbon Dioxide 25 (22-30) mmol/L Anion Gap 8 mmol/L BUN 14 (9-20) mg/dL Creatinine 1.19 (0.66-1.25) mg/dL Est GFR (CKD-EPI)AfAm 67 (>60 ml/min/1.73 sqM) Est GFR (CKD-EPI)NonAf 58 (>60 ml/min/1.73 sqM) Glucose 123 H (74-99) mg/dL Calcium 8.7 (8.4-10.2) mg/dL Magnesium 1.6 (1.6-2.3) mg/dL Total Bilirubin 1.0 (0.2-1.3) mg/dL AST 23 (17-59) U/L ALT 16 (4-49) U/L Alkaline Phosphatase 51 (38-126) U/L Troponin I (0.000-0.034) ng/mL NT-Pro-B Natriuret Pep pg/mL Total Protein 6.4 (6.3-8.2) g/dL Albumin 3.8 (3.5-5.0) g/dL 09/04/22 09/04/22 Range/Units 07:43 07:43 WBC (3.8-10.6) k/uL RBC (4.30-5.90) m/uL Hgb (13.0-17.5) gm/dL Hct (39.0-53.0) % MCV (80.0-100.0) fL MCH (25.0-35.0) pg MCHC (31.0-37.0) g/dL RDW (11.5-15.5) % Plt Count (150-450) k/uL MPV Neutrophils % % Lymphocytes % % Monocytes % % Eosinophils % % Basophils % % Neutrophils # (1.3-7.7) k/uL Lymphocytes # (1.0-4.8) k/uL Monocytes # (0-1.0) k/uL Eosinophils # (0-0.7) k/uL Basophils # (0-0.2) k/uL PT (9.0-12.0) sec INR (<1.2) APTT (22.0-30.0) sec Sodium (137-145) mmol/L Potassium (3.5-5.1) mmol/L Chloride (98-107) mmol/L Carbon Dioxide (22-30) mmol/L Anion Gap mmol/L BUN (9-20) mg/dL Creatinine (0.66-1.25) mg/dL Est GFR (CKD-EPI)AfAm (>60 ml/min/1.73 sqM) Est GFR (CKD-EPI)NonAf (>60 ml/min/1.73 sqM) Glucose (74-99) mg/dL Calcium (8.4-10.2) mg/dL Magnesium (1.6-2.3) mg/dL Total Bilirubin (0.2-1.3) mg/dL AST (17-59) U/L ALT (4-49) U/L Alkaline Phosphatase (38-126) U/L Troponin I 0.530 H* (0.000-0.034) ng/mL NT-Pro-B Natriuret Pep 7760 pg/mL Total Protein (6.3-8.2) g/dL Albumin (3.5-5.0) g/dL - EKG Data -: EKG Interpreted by Me EKG Comments: 12-lead Electrocardiogram Interpretation Note EKG was reviewed and interpreted by myself. 12-lead ECG performed at 0719 is interpreted by me as revealing A. fib with RVR at a rate of 113 beats per minute. Left axis deviation. QRS duration is 106 ms, QTc is 400 ms.. There are some ST segment depressions seen in V5 and V6 which appear to be chronic in fair seen from the EKG from August 31. No other acute ST segment T-wave abnor malities to suggest acute ischemia.. R wave progression across the precordium was satisfactory. By my interpretation this EKG is non-diagnostic for acute ischemia. It does show chronic changes. 12-lead Electrocardiogram Interpretation Note EKG was reviewed and interpreted by myself. 12-lead ECG performed at 0840 is interpreted by me as revealing A. fib with RVR at a rate of 97 beats per minute. Left axis deviation. QRS durations 109 ms, QTc is 447 ms.. Mild but improved ST segment depression seen in V5 and V6 which once again redemonstrated from 08/31/2022. No other acute ST segment T-wave abnormalities to suggest acute ischemia. R wave progression across the precordium was satisfactory. By my interpretation this EKG is non-diagnostic for acute ischemia. Disposition Clinical Impression: Chest pain, Atrial fibrillation with RVR, Elevated troponin Disposition: ADMITTED IP TO THIS HOSP Condition: Stable Time of Disposition: 08:45
[2022-09-04 08:04] LABS: INR 1.1 (<1.2); Partial Thromboplastin Time 22.9 sec (22.0-30.0); Prothrombin Time 11.6 sec (9.0-12.0)
[2022-09-04 08:11] LABS: Albumin 3.8 g/dL (3.5-5.0); Calcium 8.7 mg/dL (8.4-10.2); Magnesium 1.6 mg/dL (1.6-2.3); Potassium 3.8 mmol/L (3.5-5.1); Total Protein 6.4 g/dL (6.3-8.2)
--- NOTE | 2022-09-04 08:15 | XR ---
EXAMINATION TYPE: XR chest 2V DATE OF EXAM: 09/04/2022 8:10 AM COMPARISON: Chest radiographs from 08/28/2022 TECHNIQUE: XR chest 2V Frontal and lateral views of the chest. CLINICAL INDICATION:Male, 77 years old with history of Chest Pain; FINDINGS: Lungs/Pleura: There is no evidence of pleural effusion, focal consolidation, or pneumothorax. Pulmonary vascularity: Unremarkable. Heart/mediastinum: Cardiomediastinal silhouette is enlarged and stable. Atherosclerotic calcificatio ns are seen in the aorta. Single-lead cardiac conduction device overlying the left hemithorax with le ad projecting over the right ventricle. Musculoskeletal: No acute osseous pathology. Bilateral shoulder arthropathy. IMPRESSION: Cardiomegaly without evidence for acute cardiopulmonary disease/process. No significant change prior examination.
[2022-09-04] MEDS ORDERED: NALOXONE 0.4 MG/ML 1 ML VIAL IV PRN (08:53)
[2022-09-04] MEDS ORDERED: ISOSORBIDE MONONITRATE ER 30 MG TAB.ER.24H PO SCH (09:00)
[2022-09-04] MEDS ORDERED: NON FORMULARY DRUG (Saw Palmetto [Saw Palmetto] 500 MG Capsule) PO SCH (09:00)
[2022-09-04] MEDS: FUROSEMIDE 40 MG TAB PO SCH (10:11)
[2022-09-04] MEDS: PANTOPRAZOLE 40 MG TABLET PO SCH (10:12)
[2022-09-04] MEDS: CLOPIDOGREL 75 MG TAB PO SCH (10:12)
[2022-09-04] MEDS: POTASSIUM CHLORIDE ER 20 MEQ TAB.ER PO SCH (10:12)
[2022-09-04] MEDS: DAPAGLIFLOZIN PROPANEDIOL 10 MG TABLET PO SCH (11:02)
[2022-09-04] MEDS: ALBUTEROL HFA INHALER INHALATION PRN ×3 (11:46→21:14)
[2022-09-04] MEDS ORDERED: MECLIZINE 12.5 MG TAB PO PRN (19:13)
[2022-09-04] MEDS: MECLIZINE 12.5 MG TAB PO SCH (19:38)
[2022-09-04] MEDS: ATORVASTATIN 40 MG TAB PO SCH (20:25)
[2022-09-04] MEDS: APIXABAN 5 MG TAB PO SCH (20:25)
[2022-09-04] MEDS ORDERED: METOPROLOL TARTRATE 50 MG TAB PO SCH (21:00)
[2022-09-04] MEDS ORDERED: TEMAZEPAM 15 MG CAP PO ONE (23:32)
[2022-09-05] MEDS: PANTOPRAZOLE 40 MG TABLET PO SCH (05:47)
[2022-09-05 06:59] LABS: Basophils % (A) 1 %; Eosinophils # (A) 0.1 k/uL (0-0.7); Eosinophils % (A) 3 %; HCT 30.6 % (39.0-53.0); Lymphocytes # (A) 0.9 k/uL (1.0-4.8); Lymphocytes % (A) 30 %; MCH 32.5 pg (25.0-35.0); MCHC 32.8 g/dL (31.0-37.0); Mean Platelet Volume 10.1; Monocytes # (A) 0.1 k/uL (0-1.0); Monocytes % (A) 4 %; Neutrophils # (A) 1.9 k/uL (1.3-7.7); Neutrophils % (A) 59 %; RBC 3.09 m/uL (4.30-5.90); WBC 3.2 k/uL (3.8-10.6)
[2022-09-05 07:00] LABS: Albumin 2.9 g/dL (3.5-5.0); Calcium 8.3 mg/dL (8.4-10.2); Potassium 4.1 mmol/L (3.5-5.1); Total Bilirubin 0.8 mg/dL (0.2-1.3)
[2022-09-05 07:15] LABS: Platelet Count 82 k/uL (150-450)
[2022-09-05 07:16] LABS: Large Platelets Present; Polychromasia Present
[2022-09-05] MEDS: ALBUTEROL HFA INHALER INHALATION PRN ×3 (08:13→21:15)
[2022-09-05] MEDS ORDERED: MAGNESIUM SULFATE-D5W PMX 1 GM in DEXTROSE/WATER 1 100ML.BAG IVPB ONE (08:58)
[2022-09-05] MEDS ORDERED: ASPIRIN 81 MG PO SCH (09:00)
[2022-09-05] MEDS: FUROSEMIDE 40 MG TAB PO SCH (09:36)
[2022-09-05] MEDS: MECLIZINE 12.5 MG TAB PO SCH ×2 (09:36→21:12)
[2022-09-05] MEDS: DIGOXIN 250 MCG/ML 2 ML AMP IVP SCH ×2 (09:37→15:29)
[2022-09-05] MEDS: METOPROLOL TARTRATE 50 MG TAB PO SCH ×3 (09:37→21:11)
[2022-09-05] MEDS: APIXABAN 5 MG TAB PO SCH ×2 (09:37→21:11)
[2022-09-05] MEDS: POTASSIUM CHLORIDE ER 20 MEQ TAB.ER PO SCH (09:37)
[2022-09-05] MEDS: CLOPIDOGREL 75 MG TAB PO SCH (09:37)
[2022-09-05] MEDS: DAPAGLIFLOZIN PROPANEDIOL 10 MG TABLET PO SCH (12:53)
--- NOTE | 2022-09-05 14:15 | CONS ---
CONSULTATION HISTORY OF PRESENT ILLNESS: Hola Duncan is a gentleman with ischemic cardiomyopathy, who suffered from an anterior KS in 1989 or so, had angioplasty done of the LAD. Over the years, his ejection fraction has been in the 25% range. He developed atrial fibrillation, was on anticoagulation, and recently was hospitalized with chest pain and mild troponin elevation, and cardiac catheterization revealed that he had a totally-occluded LAD, but the diagonal branch had a significant lesion, and the diagonal was of a decent-sized diagonal. I performed shockwave lithotripsy as well as high-pressure noncompliant balloon inflation followed by stenting of the major diagonal branch. He was sent home, comes back in with chest pain, had equivocal troponin elevation which does not suggest new myocardial injury. He also has some shortness of breath and is in atrial fibrillation with variable rate, some of them high in the 130 range. He is resting comfortably at the time of my evaluation. I explained to him that we are dealing with ischemic cardiomyopathy, and that is the explanation for his shortness of breath. I will optimize medications, increase the metoprolol to 100 mg t.i.d. He has a single- chamber ICD and pacer. I will also add digoxin 0.25 mg 2 doses 6 hours apart IV push followed by 125 mcg daily from tomorrow. We will gradually increase activity, and if he does well, he can potentially be discharged today. PAST MEDICAL HISTORY: 1. Ischemic cardiomyopathy with prior KS in 1989, and PTCA of LAD, now occluded. Last week, I performed stenting of a major diagonal branch. His RCA and circumflex have no significant disease. 2. Paroxysmal atrial fibrillation. 3. Congestive heart failure, chronic. 4. History of some anxiety disorder. MEDICATIONS AT HOME: Include: 1. Farxiga. 2. Aspirin. 3. Lasix 40 mg daily. 4. Lopressor 100 mg b.i.d. 5. Imdur 30 mg daily. 6. Eliquis 5 mg b.i.d. 7. Plavix 75 mg daily. PHYSICAL EXAMINATION: VITAL SIGNS: Blood pressure is 98/60. Pulse rate is 80, irregular. HEENT: Unremarkable. Fundus was not examined by me. NECK: Supple. JVD 1 cm. No carotid bruit. HEART: Reveals S1 and S2 with a short systolic murmur. LUNGS: Reveal decent air entry. ABDOMEN: Soft and nontender. EXTREMITIES: Lower extremities reveal diminished pulses. CENTRAL NERVOUS SYSTEM: Normal. Grossly, no focal deficits. LABORATORY DATA: EKG revealed atrial fibrillation with moderate ventricular rate, nonspecific ST-T changes and IVCD. RECOMMENDATIONS: I am recommending that we increase the beta-javad to 100 mg t.i.d., add digoxin, and put him on oral Lasix, and based on clinical course, we will make further recommendations. He is on apixaban 5 mg b.i.d., and Plavix 75 mg daily, but no aspirin. The patient may be discharged later this evening if he remains stable. MMODL / IJN: [id number] /
[2022-09-05] MEDS ORDERED: TEMAZEPAM 15 MG CAP PO PRN (20:04)
[2022-09-05] MEDS: ATORVASTATIN 40 MG TAB PO SCH (21:11)
[2022-09-06] MEDS: PANTOPRAZOLE 40 MG TABLET PO SCH (06:29)
[2022-09-06] MEDS: ALBUTEROL HFA INHALER INHALATION PRN ×2 (08:20→12:05)
[2022-09-06 08:35] VITALS: BP 91/59; PULSE 99; RESP 16; TEMP 98.1
[2022-09-06] MEDS: DAPAGLIFLOZIN PROPANEDIOL 10 MG TABLET PO SCH (08:37)
[2022-09-06] MEDS: APIXABAN 5 MG TAB PO SCH (08:37)
[2022-09-06] MEDS: POTASSIUM CHLORIDE ER 20 MEQ TAB.ER PO SCH (08:37)
[2022-09-06] MEDS: MECLIZINE 12.5 MG TAB PO SCH (08:37)
[2022-09-06] MEDS: METOPROLOL TARTRATE 50 MG TAB PO SCH (08:37)
[2022-09-06] MEDS: CLOPIDOGREL 75 MG TAB PO SCH (08:37)
[2022-09-06] MEDS: FUROSEMIDE 40 MG TAB PO SCH (08:37)
[2022-09-06] MEDS ORDERED: DIGOXIN 125 MCG TAB PO SCH (09:00)
[2022-09-06 09:19] LABS: Calcium 8.7 mg/dL (8.4-10.2); Potassium 4.6 mmol/L (3.5-5.1)
--- NOTE | 2022-09-06 09:45 | P.HPIM ---
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 Was recently discharged from [facility] after he was hospitalized for 5 day course due to atrial fibrillation with rapid ventricular response at that time he was placed Cardizem drip along with metoprolol 100 mg orally twice every day, he was placed on Coumadin, and he was sent home to follow-up with me as an outpatient, patient ended up coming to the emergency department at [facility] today with increased palpitations and increased shortness breath, he was found to be in atrial fibrillation with rapid ventricular response, patient was kept on metoprolol 100 mg orally twice every day, his troponin came back elevated at 0.55, and because of the presentation he was admitted to the hospital with evaluation by cardiology and underwent Left heart Catherization that showed total oclusion of the mif LAd prior to it there was a diagonal branch with eccentric lesion for which he underwent shock wave to LAD and PCI of the diagonal branch with stent placement, was sent home on Eliquis and same cardiac medications unfortunately patient came back to the ER with Atrial fibrillation with RVR and significant chest pain with severe exertional dyspnea and he was admitted and was started on carduac Rx . Of note patient did have an echocardiogram back in July 2021 that showed ejection fraction of 20% with severe mitral regurgitation and tricuspid regurgitation with pulmonary hypertension. REVIEW OF SYSTEMS Constitutional: No fever, no chills, no night sweats. No weight change. No weakness, fatigue or lethargy. No daytime sleepiness. EENT: No headache. No blurred vision or double vision, no loss of vision. No loss of Hearing, no ringing in the ears, no dizziness. No nasal drainage or congestion. No epistaxis. No sore throat. Lungs: Reports shortness of breathimproved, no cough, no sputum production. No wheezing. Cardiovascular: No chest pain, no lower extremity edema. Reports palpitations. No paroxysmal nocturnal dyspnea. No orthopnea. No lightheadedness or dizziness. No syncopal episodes. Abdominal: Reports no abdominal discomfort. No nausea, vomiting. No diarrhea. No constipation. No bloody or tarry stools. No loss of appetite. Genitourinary: No dysuria, increased frequency, urgency. No urinary retention. Musculoskeletal: No myalgias. No muscle weakness, no gait dysfunction, no frequent falls. No back pain. No neck pain. Integumentary: No wounds, no lesions. No rash or pruritus. No unusual bruising. No change in hair or nails. Neurologic: No aphasia. No facial droop. No change in mentation. No head injury. No headache. No paralysis. No paresthesia. Psychiatric: No depression. No anxiety. No mood swings. Endocrine: No abnormal blood sugars. No weight change. MEDICAL HISTORY Coronary artery disease status post stent Hypertension Hyperlipidemia Gastroesophageal reflux disease Chronic anemia CVA Benign prostatic hypertrophy Persistent atrial fibrillation Cardiomyopathy status post AICD. SURGICAL HISTORY AICD 2009 Cardiac catheterization and stent placement 1989 Colonoscopy . SOCIAL HISTORY History of smoking. No alcohol use, no marijuana use, patient lives at home with his . FAMILY HISTORY Father at age 55 from COPD and cirrhosis. Mother at age 90 from old age. Patient has 2 brothers one from a thermistor disease and fell and broke his hip the other is 83 years old with coronary artery disease and PCI. Patient has one sister alive with COPD. One son is alive with CHF. Patient has 2 daughters have one at age 50 from heart failure and the other one at age 27 from heart failure. PHYSICAL EXAMINATION Gen: This is a 76-year-old male. He is resting on ER stretcher and appears to be in no acute distress. HEENT: Head is atraumatic, normocephalic. Pupils equal, round. Sclerae is anicteric. NECK: Supple. No JVD. No lymphadenopathy. No thyromegaly. LUNGS: Decreased breath sounds at bases, few rhonchi, no chest or wheezes, no chest wall tenderness, no intercostal retractions HEART: First heart sound is depressed, second heart sound is normal, irregularly irregular, there is 2/6 systolic systolic ejection murmur at the left sternal border. ABDOMEN: Soft. Bowel sounds are present. No masses. No tenderness. EXTREMITIES: there is no edema, no calf tenderness, dorsalis pedis +1 bila terally. NEUROLOGICAL: Patient is awake, alert and oriented x3. Cranial nerves 2 through 12 are grossly intact, muscle power 5 out of 5 in upper and lower extremities bilaterally. ASSESSMENT AND PLAN 1. Persistent atrial fibrillation with RVR. continue metoprolol 100 mg orally twice every day, cardiology consultation. 2. type II HI due to A. fib with RVR. Continue patient on [id number] mg orally twice every day, continue patient on Clopidogrel 75 mg once every day, as well as atorvastatin 40 mg once every day. 3. History of coronary artery disease status post stent. Continue patient on Clopidogrel 75 mg po daily , Imdur 30 mg daily, Lopressor 100 mg twice daily. 4. Hypertension and hypertensive cardiovascular disease Continue patient on metoprolol 100 mg orally twice every day and Lisinopril 2.5 mg po daily. 5. Hyperlipidemia. Continue atorvastatin 40 mg at bedtime. 6. Chronic anemia. Continue ferrous sulfate 325 mg daily. 7. History of CVA. Continue patient on Clopidogrel 75 mg orally daily , Lipitor 40 mg daily, was placed on Eliquis 5 mg po bid 8. Benign prostatic hypertrophy. Monitor for urinary retention.patient will have an appointment with Dr. Ward as an outpatient PSA is normal for his age. 9. Cardiomyopathy status post AICD. continue patient on metoprolol 100 mg orally twice every day, continue frusemide 40 mg orally twice every day could not tolerate Entresto 24-26 mg po bid due to hypotension and Farxiga 10 mg o daily 10. Gastroesophageal reflux disease and GI prophylaxis. Protonix. 40 mg orally once every day. 11. DVT prophylaxis. we will continue with Eliquis 5 mg po bid 12. Admit to inpatient. Estimate length of stay 2 midnights. 13. Patient is full code Past Medical History Past Medical History: Atrial Fibrillation, CVA/TIA, Eye Disorder, Hearing Disorder / Deafness, Hyperlipidemia, Myocardial Infarction (HI), Prostate Disorder Additional Past Medical History / Comment(s): stroke-facial and left hand weakness, constipation, HI in 1990. KOTZEBUE. RT MAC. DEG. cataracts, shots in the eye. retina issues. Last Myocardial Infarction Date:: 1990 History of Any Multi-Drug Resistant Organisms: None Reported Past Surgical History: AICD, Heart Catheterization With Stent, Orthopedic Surgery Additional Past Surgical History / Comment(s): left hip surgery,. COLONOSCOPY Past Anesthesia/Blood Transfusion Reactions: No Reported Reaction Date of Last Stent Placement:: 1990 Type of Cardiac Device: AICD Device Placement Date:: 2009 Past Psychological History: No Psychological Hx Reported Smoking Status: Former smoker Past Alcohol Use History: None Reported Past Drug Use History: None Reported - Past Family History Mother Family Medical History: No Reported History Medications and Allergies Home Medications Medication Instructions Recorded Confirmed Type Atorvastatin [Lipitor] 40 mg PO HS 07/17/16 09/04/22 History Ferrous Sulfate [Feosol] 325 mg PO DAILY 07/17/16 09/04/22 History Isosorbide Mononitrate ER [Imdur] 30 mg PO DAILY 07/17/16 09/04/22 History Lansoprazole 30 mg PO DAILY 07/17/16 09/04/22 History Cholecalciferol [Vitamin D3 (25 25 mcg PO DAILY 08/06/21 09/04/22 History Mcg = 1000 Iu)] Eye Vitamin (Unknown Brand) 1 tab PO DAILY 08/11/22 09/04/22 History Saw [place] 500 mg PO DAILY 08/11/22 09/04/22 History Albuterol Inhaler [Ventolin Hfa 2 puff INHALATION RT-Q4H PRN 08/17/22 09/04/22 History Inhaler] Apixaban [Eliquis] 5 mg PO BID #60 tab 08/31/22 09/04/22 Rx Aspirin EC [Ecotrin Low Dose] 81 mg PO DAILY #0 08/31/22 09/04/22 Rx Clopidogrel [Plavix] 75 mg PO DAILY #30 tab 08/31/22 09/04/22 Rx Dapagliflozin Propanediol [Farxiga] 10 mg PO DAILY #30 tab 08/31/22 09/04/22 Rx Furosemide [Lasix] 40 mg PO DAILY #30 tablet 08/31/22 09/04/22 Rx Metoprolol Tartrate [Lopressor] 100 mg PO BID #60 tablet 08/31/22 09/04/22 Rx Potassium Chloride ER [K-Dur 20] 20 meq PO DAILY #30 tab 08/31/22 09/04/22 Rx lisinopriL 2.5 mg PO DAILY #30 tablet 08/31/22 09/04/22 Rx Allergies Allergy/AdvReac Type Severity Reaction Status Date / Time No Known Allergies Allergy Verified 09/04/22 16:39 Physical Exam Vitals: Vital Signs Temp Pulse Pulse Resp BP BP Pulse Ox 09/04/22 18:08 90 18 112/56 98 03/13/23 15:04 98.3 F 103 H 18 90/62 100 09/04/22 14:38 120 H 18 89/78 100 09/04/22 12:13 115 H 18 103/75 100 09/04/22 11:28 100 18 93/66 100 09/04/22 10:18 89 18 104/71 100 09/04/22 08:27 96 18 92/71 96 09/04/22 08:15 98 18 107/65 98 09/04/22 07:01 97.7 F 141 H 18 96/65 99 Intake and Output 09/04/22 09/04/22 09/04/22 06:59 14:59 22:59 Intake Total 0 Balance 0 Intake: Intake, IV Titration 0 Amount Sodium Chloride 0.9% 1, 0 000 ml @ 999 mls/hr IV . Q1H1M STA Rx#:[id number] Sodium Chloride 0.9% 1, 0 000 ml @ 999 mls/hr IV . Q1H1M STA Rx#:[id number] Other: Weight 68.039 kg 68.039 kg Results CBC & Chem 7: 09/05/22 06:27 09/06/22 07:19 Labs: Abnormal Lab Results - Last 24 Hours (Table) 09/04/22 09/04/22 09/04/22 Range/Units 07:43 07:43 07:43 RBC 3.61 L (4.30-5.90) m/uL Hgb 11.6 L (13.0-17.5) gm/dL Hct 35.0 L (39.0-53.0) % Plt Count 105 L (150-450) k/uL Glucose 123 H (74-99) mg/dL Troponin I 0.530 H* (0.000-0.034) ng/mL 09/04/22 09/04/22 Range/Units 09:11 11:53 RBC (4.30-5.90) m/uL Hgb (13.0-17.5) gm/dL Hct (39.0-53.0) % Plt Count (150-450) k/uL Glucose (74-99) mg/dL Troponin I 0.448 H* 0.373 H* (0.000-0.034) ng/mL Thrombosis Risk Factor Assmnt - Choose All That Apply Any of the Below Risk Factors Present?: Yes Each Risk Factor Represents 3 Points: Age 75 years or older Thrombosis Risk Factor Assessment Total Risk Factor Score: 3 Thrombosis Risk Factor Assessment Level: Moderate Risk
--- NOTE | 2022-09-06 09:51 | P.PN ---
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 Was recently discharged from [facility] after he was hospitalized for 5 day course due to atrial fibrillation with rapid ventricular response at that time he was placed Cardizem drip along with metoprolol 100 mg orally twice every day, he was placed on Coumadin, and he was sent home to follow-up with me as an outpatient, patient ended up coming to the emergency department at [facility] today with increased palpitations and increased shortness breath, he was found to be in atrial fibrillation with rapid ventricular response, patient was kept on meto prolol 100 mg orally twice every day, his troponin came back elevated at 0.55, and because of the presentation he was admitted to the hospital with evaluation by cardiology and underwent Left heart Catherization that showed total oclusion of the mif LAd prior to it there was a diagonal branch with eccentric lesion for which he underwent shock wave to LAD and PCI of the diagonal branch with stent p lacement, was sent home on Eliquis and same cardiac medications unfortunately patient came back to the ER with Atrial fibrillation with RVR and significant chest pain with severe exertional dyspnea and he was admitted and was started on carduac Rx . Of note patient did have an echocardiogram back in July 2021 that showed ejection fraction of 20% with severe mitral regurgitation and tricuspid regurgitation with pulmonary hypertension. 09/05: Patient is feeling exhausted with recurrent chest pain and shortness of breath with severe cardiomyopathy status, was started on Digoxin 125 mcg po daily along with increasing Metoprolol to 100 mg po tid, we will continue with monitoring and wew ill continue with following with PT and OT , patient wanted to go home but I see he is a great candidate for cardiac rehab as the patient is at high risk for readmission to the hospital. REVIEW OF SYSTEMS Constitutional: No fever, no chills, no night sweats. No weight change. No weakness, fatigue or lethargy. No daytime sleepiness. EENT: No headache. No blurred vision or double vision, no loss of vision. No loss of Hearing, no ringing in the ears, no dizziness. No nasal drainage or congestion. No epistaxis. No sore throat. Lungs: Reports shortness of breathimproved, no cough, no sputum production. No wheezing. Cardiovascular: No chest pain, no lower extremity edema. Reports palpitations. No paroxysmal nocturnal dyspnea. No orthopnea. No lightheadedness or dizziness. No syncopal episodes. Abdominal: Reports no abdominal discomfort. No nausea, vomiting. No diarrhea. No constipation. No bloody or tarry stools. No loss of appetite. Genitourinary: No dysuria, increased frequency, urgency. No urinary retention. Musculoskeletal: No myalgias. No muscle weakness, no gait dysfunction, no frequent falls. No back pain. No neck pain. Integumentary: No wounds, no lesions. No rash or pruritus. No unusual bruising. No change in hair or nails. Neurologic: No aphasia. No facial droop. No change in mentation. No head injury. No headache. No paralysis. No paresthesia. Psychiatric: No depression. No anxiety. No mood swings. Endocrine: No abnormal blood sugars. No weight change. PHYSICAL EXAMINATION Gen: This is a 76-year-old male. He is resting on ER stretcher and appears to be in no acute distress. HEENT: Head is atraumatic, normocephalic. Pupils equal, round. Sclerae is anicteric. NECK: Supple. No JVD. No lymphadenopathy. No thyromegaly. LUNGS: Decreased breath sounds at bases, few rhonchi, no chest or wheezes, no chest wall tenderness, no intercostal retractions HEART: First heart sound is depressed, second heart sound is normal, irregularly irregular, there is 2/6 systolic systolic ejection murmur at the left sternal border. ABDOMEN: Soft. Bowel sounds are present. No masses. No tenderness. EXTREMITIES: there is no edema, no calf tenderness, dorsalis pedis +1 bilaterally. NEUROLOGICAL: Patient is awake, alert and oriented x3. Cranial nerves 2 through 12 are grossly intact, muscle power 5 out of 5 in upper and lower extremities bilaterally. ASSESSMENT AND PLAN 1. Persistent atrial fibrillation with RVR. continue metoprolol 100 mg orally three times a day and we will continue with Digoxin 125 mcg po daily along with Apixaban 5 mg po bid 2. type II NC due to A. fib with RVR. Continue patient on [id number] mg orally three times every day, continue patient on Clopidogrel 75 mg once every day, as well as atorvastatin 40 mg once every day. 3. History of coronary artery disease status post stent. Continue patient on Clopidogrel 75 mg po daily , Imdur 30 mg daily, Lopressor 100 mg three times daily. 4. Hypertension and hypertensive cardiovascular disease Continue patient on metoprolol 100 mg orally three times every day and Lisinopril 2.5 mg po daily. 5. Hyperlipidemia. Continue atorvastatin 40 mg at bedtime, we will continue to monitor lipid panel and keep LDL-c 55-70 6. Chronic anemia. Continue ferrous sulfate 325 mg daily. 7. History of CVA. Continue patient on Clopidogrel 75 mg orally daily , Lipitor 40 mg daily, was placed on Eliquis 5 mg po bid 8. Benign prostatic hypertrophy. Monitor for urinary retention.patient will have an appointment with Dr. Ward as an outpatient PSA is normal for his age. 9. Cardiomyopathy status post AICD. continue patient on metoprolol 100 mg orally three times every day, continue frusemide 40 mg orally twice every day, Farxiga 10 mg o daily 10. Gastroesophageal reflux disease and GI prophylaxis. Protonix. 40 mg orally once every day. 11. DVT prophylaxis. we will continue with Eliquis 5 mg po bid . 12. Home in AM with plan for Cardiac rehab Objective - Vital Signs Vital signs: Vital Signs Temp 98.1 F 09/06/22 08:00 Pulse 99 09/06/22 08:00 Resp 16 09/06/22 08:00 BP 91/59 09/06/22 08:00 Pulse Ox 94 L 09/06/22 08:00 FiO2 Intake & Output 09/05/22 09/06/22 09/06/22 18:59 06:59 18:59 Intake Total 360 Balance 360 Intake: Oral 360 Other: # Voids 1 2 # Bowel Movements 1 - Labs CBC & Chem 7: 09/05/22 06:27 09/06/22 07:19 Labs: Abnormal Lab Results - Last 24 Hours (Table) 09/06/22 Range/Units 07:19 Chloride 109 H (98-107) mmol/L
--- NOTE | 2022-09-06 10:26 | PN ---
PROGRESS NOTE SUBJECTIVE: Mr. Duncan has ischemic cardiomyopathy, an ICD single-chamber and chronic persistent atrial fibrillation. His rate is much better controlled. He is on metoprolol and also digoxin. OBJECTIVE: VITAL SIGNS: Stable. Blood pressure is 108/70, pulse rate is in the 70 to 80 irregular. NECK: JVD, 1 cm. No carotid bruit. HEART: S1, S2 heard, normal. LUNGS: Revealed decent air entry. ABDOMEN: Unchanged. LOWER EXTREMITIES: Unchanged. PLAN: Continue current medications. Increase activity. Discharge the patient today and I will see him in the office next week. MMODL / IJN: [id number] /
[2022-09-06] MEDS ORDERED: SYMBICORT 160-4.5 MCG INHALER INHALATION SCH (11:49)
--- NOTE | 2022-09-06 13:15 | P.DS ---
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 Was recently discharged from [facility] after he was hospitalized for 5 day course due to atrial fibrillation with rapid ventricular response at that time he was placed Cardizem drip along with metoprolol 100 mg orally twice every day, he was placed on Coumadin, and he was sent home to follow-up with me as an outpatient, patient ended up coming to the emergency department at [facility] today with increased palpitations and increased shortness breath, he was found to be in atrial fibrillation with rapid ventricular response, patient was kept on metoprolol 100 mg orally twice every day, his troponin came back elevated at 0.55, and because of the presentation he was admitted to the hospital with evaluation by cardiology and underwent Left heart Catherization that showed total oclusion of the mif LAd prior to it there was a diagonal branch with eccentric lesion for which he underwent shock wave to LAD and PCI of the diagonal branch with stent placement, was sent home on Eliquis and same cardiac medications unfortunately patient came back to the ER with Atrial fibrillation with RVR and significant chest pain with severe exertional dyspnea and he was admitted and was started on carduac Rx . Of note patient did have an echocardiogram back in July 2021 that showed ejection fraction of 20% with severe mitral regurgitation and tricuspid regurgitation with pulmonary hypertension. 09/05: Patient is feeling exhausted with recurrent chest pain and shortness of breath with severe cardiomyopathy status, was started on Digoxin 125 mcg po daily along with increasing Metoprolol to 100 mg po tid, we will continue with monitoring and wew ill continue with following with PT and OT , patient wanted to go home but I see he is a great candidate for cardiac rehab as the patient is at high risk for readmission to the hospital. Discharge Diagnoses: 1. Persistent atrial fibrillation with RVR. 2. type II NC due to A. fib with RVR. . 3. History of coronary artery disease status post stent. 4. Hypertension and hypertensive cardiovascular disease 5. Hyperlipidemia. 6. Chronic anemia. . 7. History of CVA. 8. Benign prostatic hypertrophy. 9. Ischemic Cardiomyopathy status post AICD. 10. Gastroesophageal reflux disease Patient Condition at Discharge: Serious Plan - Discharge Summary Discharge Rx Participant: No New Discharge Prescriptions: No Action Isosorbide Mononitrate ER [Imdur] 30 mg PO DAILY Atorvastatin [Lipitor] 40 mg PO HS Lansoprazole 30 mg PO DAILY Ferrous Sulfate [Feosol] 325 mg PO DAILY Albuterol Inhaler [Ventolin Hfa Inhaler] 2 puff INHALATION RT-Q4H PRN PRN Reason: Dyspnea Apixaban [Eliquis] 5 mg PO BID #60 tab Dapagliflozin Propanediol [Farxiga] 10 mg PO DAILY #30 tab Clopidogrel [Plavix] 75 mg PO DAILY #30 tab Aspirin EC [Ecotrin Low Dose] 81 mg PO DAILY #0 lisinopriL 2.5 mg PO DAILY #30 tablet Cholecalciferol [Vitamin D3 (25 Mcg = 1000 Iu)] 25 mcg PO DAILY Eye Vitamin (Unknown Brand) 1 tab PO DAILY [place] 500 mg PO DAILY Metoprolol Tartrate [Lopressor] 100 mg PO BID #60 tablet Potassium Chloride ER [K-Dur 20] 20 meq PO DAILY #30 tab Furosemide [Lasix] 40 mg PO DAILY #30 tablet Discharge Medication List Atorvastatin [Lipitor] 40 mg PO HS 07/17/16 [History] Ferrous Sulfate [Feosol] 325 mg PO DAILY 07/17/16 [History] Isosorbide Mononitrate ER [Imdur] 30 mg PO DAILY 07/17/16 [History] Lansoprazole 30 mg PO DAILY 07/17/16 [History] Cholecalciferol [Vitamin D3 (25 Mcg = 1000 Iu)] 25 mcg PO DAILY 08/06/21 [History] Eye Vitamin (Unknown Brand) 1 tab PO DAILY 08/11/22 [History] [place] 500 mg PO DAILY 08/11/22 [History] Albuterol Inhaler [Ventolin Hfa Inhaler] 2 puff INHALATION RT-Q4H PRN 08/17/22 [History] Apixaban [Eliquis] 5 mg PO BID #60 tab 08/31/22 [Rx] Aspirin EC [Ecotrin Low Dose] 81 mg PO DAILY #0 08/31/22 [Rx] Clopidogrel [Plavix] 75 mg PO DAILY #30 tab 08/31/22 [Rx] Dapagliflozin Propanediol [Farxiga] 10 mg PO DAILY #30 tab 08/31/22 [Rx] Furosemide [Lasix] 40 mg PO DAILY #30 tablet 08/31/22 [Rx] Metoprolol Tartrate [Lopressor] 100 mg PO BID #60 tablet 08/31/22 [Rx] Potassium Chloride ER [K-Dur 20] 20 meq PO DAILY #30 tab 08/31/22 [Rx] lisinopriL 2.5 mg PO DAILY #30 tablet 08/31/22 [Rx] Follow up Appointment(s)/Referral(s): Srinath Ly MD [STAFF PHYSICIAN] - 09/25/22 2:30 pm (This is a previously scheduled appt. Your device check is at 2:30, and you see Dr. Ly 3:00.) Chanda Pang MD [Primary Care Provider] - 09/11/22 10:45 am [facility] Visiting Nurse, [NON-STAFF] - Patient Instructions/Handouts: A-fib (Atrial Fibrillation) (DC), Chest Pain (DC)
--- NOTE | 2022-09-07 16:11 | CDI ---
Documentation Clarification Form Date: 09/07/2022 4:00:25 PM From: Lavonne Marti Phone: Admit Date: 09/04/2022 8:55:00 AM Patient Name: Hola Duncan Visit Number: [id number] Discharge Date: 09/06/2022 2:47:00 PM ATTENTION: The Clinical Documentation Specialists (CDI) and [facility] Coding Staff appreciate your assistance in clarifying documentation. Please respond to the clarification below the line at the bottom and electronically sign. The CDI & [facility] Coding staff will review the response and follow-up if needed. Please note: Queries are made part of the Legal Health Record. If you have any questions, please contact the author of this message via ITS. Dr. Chanda Pang Your patient has the documented diagnosis of chronic CHF per Consult Note 09/05/22. Additional information regarding the type of CHF is requested. History/Risk Factors: 77yo M, Persistent A Fib w type II ME, CAD w stent, HTN w CD, HLD, Hx CVA w weakness, BPH, ICM, GERD, Chronic anemia, Clinical Indicators: VS/Pulse OX: 96-100 BNP: 7760 Echocardiogram Results: back in July 2021 that showed ejection fraction of 20% with severeMR & TRwithpulmonary hypertension Chest X Ray: Cardiomegalywithout evidence for acute cardiopulmonary disease/process. No significant change prior examination. Treatment: I am recommending that we increase the beta-javad to 100 mg t.i.d., add digoxin, and put him on oral Lasix, and based on clinical course, we will make further recommendations. He is on apixaban 5 mg b.i.d., and Plavix 75 mg daily, but no aspirin. In your professional opinion, can you please clarify the [acuity and type] of CHF if known? [X ] Chronic Systolic Heart Failure (reduced EF) [ ] Chronic Diastolic Heart Failure (preserved EF) [ ] Chronic Systolic & Diastolic Heart Failure [ ] Other, please specify [ ] Unable to determine (Template Last Revised: July 2020) MTDD
== END 2022-09-06 14:47 | disposition home health service (06) | DRG 281 ==
LOC: EC 07:00 → 3SCARD 08:55
PROVIDERS: ADMIT Internal Medicine; ATTEND Internal Medicine
DX: I48.19 Other persistent atrial fibrillation (principal); I21.A1 Myocardial infarction type 2; I50.22 Chronic systolic (congestive) heart failure; I27.20 Pulmonary hypertension, unspecified; I11.0 Hypertensive heart disease with heart failure; D64.9 Anemia, unspecified; J44.9 Chronic obstructive pulmonary disease, unspecified; I08.1 Rheumatic disorders of both mitral and tricuspid valves; E78.5 Hyperlipidemia, unspecified; I25.10 Atherosclerotic heart disease of native coronary artery without angina pectoris; K21.9 Gastro-esophageal reflux disease without esophagitis; I25.5 Ischemic cardiomyopathy; R01.1 Cardiac murmur, unspecified; N40.0 Benign prostatic hyperplasia without lower urinary tract symptoms; H91.90 Unspecified hearing loss, unspecified ear; I69.334 Monoplegia of upper limb following cerebral infarction affecting left non-dominant side; I69.392 Facial weakness following cerebral infarction; Z95.5 Presence of coronary angioplasty implant and graft; Z95.810 Presence of automatic (implantable) cardiac defibrillator; Z87.891 Personal history of nicotine dependence; I25.2 Old myocardial infarction; Z79.899 Other long term (current) drug therapy; Z79.84 Long term (current) use of oral hypoglycemic drugs; Z79.02 Long term (current) use of antithrombotics/antiplatelets; Z79.82 Long term (current) use of aspirin; Z79.01 Long term (current) use of anticoagulants; Z82.49 Family history of ischemic heart disease and other diseases of the circulatory system; Z82.5 Family history of asthma and other chronic lower respiratory diseases
CPT/HCPCS: 36415; 71046; 80048; 80053; 83735; 83880; 84484; 85025; 85610; 85730; 93005; 94640; 94760; 96360; 96361; 99285

== ENCOUNTER → 2022-09-26 | Outpatient (CLI) | payer MEDICARE ==
[2022-09-26 17:16] LABS: African American GFR (CKD) 61.1 (60.0-200.0); Anion Gap 11.6 mmol/L (10.00-18.00); BUN/Creat Ratio 12.09 Ratio (12.00-20.00); Blood Urea Nitrogen 15.6 mg/dL (9.0-27.0); Calcium 9.9 mg/dL (8.7-10.3); Carbon Dioxide 28.7 mmol/L (20.0-27.5); Non-African American GFR(CKD) 52.8 (60.0-200.0); Potassium 5.1 mmol/L (3.5-5.5)
[2022-09-26 17:58] LABS: Digoxin 1.3 ng/mL (0.8-2.0)
== END | disposition home or self-care (01) ==
LOC: LABWHC1 10:35
PROVIDERS: ATTEND Internal Medicine Interventional Cardiology
DX: I48.0 Paroxysmal atrial fibrillation (principal); I25.10 Atherosclerotic heart disease of native coronary artery without angina pectoris
CPT/HCPCS: 36415; 80048; 80162

== ENCOUNTER 2022-10-02 21:39 | Inpatient (IN) | payer MEDICARE ==
[2022-10-02] MEDS ORDERED: IPRATROPIUM-ALBUTEROL 3 ML NEB INHALATION STA (22:18)
[2022-10-02] MEDS ORDERED: ALBUTEROL NEBULIZED 2.5 MG/3 ML INHALATION STA (22:19)
--- NOTE | 2022-10-02 22:20 | ED ---
General Adult HPI - General Chief complaint: Shortness of Breath Stated complaint: ROSARIO Time Seen by Provider: 10/02/22 21:54 Source: patient, RN notes reviewed, old records reviewed Mode of arrival: ambulatory - History of Present Illness Initial comments: 69-year-old male presenting for evaluation of dyspnea which began abruptly 1 hour prior. Patient states he went to use his albuterol inhaler and noted that this was empty. He denies fever. He does report a recent cardiac stent placed about one week ago. He is anticoagulated with history of atrial fibrillation. He states she's been compliant with his medications. He does not report cough. No fever. - Related Data Home Medications Medication Instructions Recorded Confirmed Atorvastatin [Lipitor] 40 mg PO HS 07/17/16 09/04/22 Ferrous Sulfate [Feosol] 325 mg PO DAILY 07/17/16 09/04/22 Lansoprazole 30 mg PO DAILY 07/17/16 09/04/22 Cholecalciferol [Vitamin D3 (25 25 mcg PO DAILY 08/06/21 09/04/22 Mcg = 1000 Iu)] Eye Vitamin (Unknown Brand) 1 tab PO DAILY 08/11/22 09/04/22 Saw [place] 500 mg PO DAILY 08/11/22 09/04/22 Albuterol Inhaler [Ventolin Hfa 2 puff INHALATION RT-Q4H PRN 08/17/22 09/04/22 Inhaler] Previous Rx's Medication Instructions Recorded Apixaban [Eliquis] 5 mg PO BID #60 tab 08/31/22 Clopidogrel [Plavix] 75 mg PO DAILY #30 tab 08/31/22 Dapagliflozin Propanediol [Farxiga] 10 mg PO DAILY #30 tab 08/31/22 Furosemide [Lasix] 40 mg PO DAILY #30 tablet 08/31/22 Potassium Chloride ER [K-Dur 20] 20 meq PO DAILY #30 tab 08/31/22 lisinopriL 2.5 mg PO DAILY #30 tablet 08/31/22 Budesonide-Formot 160-4.5 Mcg 2 puff INHALATION RT-BID #1 each 09/06/22 [Symbicort 160-4.5 Mcg Inhaler] Digoxin [Lanoxin] 125 mcg PO DAILY #30 tab 09/06/22 Metoprolol Tartrate [Lopressor] 100 mg PO TID #90 tab 09/06/22 Allergies Allergy/AdvReac Type Severity Reaction Status Date / Time No Known Allergies Allergy Verified 10/02/22 21:48 Review of Systems ROS Statement: Those systems with pertinent positive or pertinent negative responses have been documented in the HPI. ROS Other: All systems not noted in ROS Statement are negative. Past Medical History Past Medical History: Atrial Fibrillation, CVA/TIA, Eye Disorder, Hearing Disorder / Deafness, Hyperlipidemia, Myocardial Infarction (ID), Prostate Disorder Additional Past Medical History / Comment(s): stroke-facial and left hand weakness, constipation, [place]. [employer] [place]. RT MAC. DEG. cataracts, shots in the eye. retina issues. Last Myocardial Infarction Date:: 1990 History of Any Multi-Drug Resistant Organisms: None Reported Past Surgical History: AICD, Heart Catheterization With Stent, Orthopedic Surgery Additional Past Surgical History / Comment(s): left hip surgery,. COLONOSCOPY Past Anesthesia/Blood Transfusion Reactions: No Reported Reaction Date of Last Stent Placement:: 1990 Type of Cardiac Device: AICD Device Placement Date:: 2009 Past Psychological History: No Psychological Hx Reported Smoking Status: Former smoker Past Alcohol Use History: None Reported Past Drug Use History: None Reported - Past Family History Mother Family Medical History: No Reported History General Exam General appearance: alert, in no apparent distress Head exam: Present: atraumatic, normocephalic Eye exam: Present: normal appearance ENT exam: Present: normal exam Neck exam: Present: normal inspection. Absent: tenderness, meningismus Respiratory exam: Present: decreased breath sounds. Absent: respiratory distress, wheezes Cardiovascular Exam: Present: tachycardia, irregular rhythm GI/Abdominal exam: Present: soft. Absent: distended, tenderness, guarding Extremities exam: Present: normal inspection, normal capillary refill. Absent: pedal edema Neurological exam: Present: alert, oriented X3, CN II-XII intact. Absent: motor sensory deficit Psychiatric exam: Present: normal affect, normal mood Skin exam: Present: warm, dry. Absent: cyanosis, diaphoretic Course Vital Signs 10/02/22 10/02/22 10/02/22 21:43 22:25 22:35 Temperature 97.5 F L Pulse Rate 129 H 116 H 117 H Respiratory 18 Rate Blood Pressure 104/77 O2 Sat by Pulse 100 Oximetry 10/02/22 10/02/22 10/03/22 22:36 22:59 00:09 Temperature Pulse Rate 117 H 116 H 79 Respiratory 20 Rate Blood Pressure 97/63 O2 Sat by Pulse 99 Oximetry EKG Findings - EKG Comments: EKG Findings:: EKG: Atrial fibrillation with RVR rate of 102 left axis deviation, marked ST segment depression in the lateral precordial leads similar compared to prior EKGs on September 04August 6 in August 31. QRS duration 105, QTC 404 - EKG Results: EKG: interpreted by [facility] Medical Decision Making - Medical Decision Making Was pt. sent in by a medical professional or institution (, PA, SCHOOL BUS DISPATCHER, urgent care, hospital, or retirement...) When possible be specific @ -[No] Did you speak to anyone other than the patient for history (EMS, parent, family, police, friend...)? What history was obtained from this source @ -[No] Did you review nursing and triage notes (agree or disagree)? Why? @ -[I reviewed and agree with nursing and triage notes] Were old charts reviewed (outside hosp., previous admission, EMS record, old EKG, old radiological studies, urgent care reports/EKG's, retirement records)? Report findings @ -Reviewed previous admission and heart catheterization as well as troponin levels Differential Diagnosis (chest pain, altered mental status, abdominal pain women, abdominal pain men, vaginal bleeding, weakness, fever, dyspnea, syncope, headache, dizziness, GI bleed, back pain, seizure, CVA, palpatations, mental health, musculoskeletal)? @ -Differential Dyspnea: Coronary syndrome, arrhythmia, tamponade, asthma, COPD, pulmonary embolism, pneumonia, pneumothorax, pulmonary effusion, anaphylaxis, diabetic ketoacidosis, flailed chest, pulmonary contusion, diaphragmatic rupture, anemia, neuromuscular, this is not meant to be an all-inclusive list. EKG interpreted by me (3pts min.). @ -[As above] X-rays interpreted by me (1pt min.). @ -Chest x-ray negative for acute cardiopulmonary findings CT interpreted by me (1pt min.). @ -[None done] U/S interpreted by me (1pt. min.). @ -[None done] What testing was considered but not performed or refused? (CT, X-rays, U/S, labs)? Why? @ -[None] What meds were considered but not given or refused? Why? @ -[None] Did you discuss the management of the patient with other professionals (syd christensen i.e. , PA, SCHOOL BUS DISPATCHER, lab, RT, psych nurse, social work specialist, implementation director, teacher, special assets officer, rn case manager hospice)? Give summary @ -Case discussed with the admitting physician Dr. Coelho Was smoking cessation discussed for >3mins.? @ -[No] Was critical care preformed (if so, how long)? @ -[yes] Were there social determinants of health that impacted care today? How? (Homelessness, low income, unemployed, alcoholism, drug addiction, transportation, low edu. Level, literacy, decrease access to med. care, [facility], rehab)? @ -[No] Was there de-escalation of care discussed even if they declined (Discuss DNR or withdrawal of care, Hospice)? DNR status @ -[No] What co-morbidities impacted this encounter? (DM, HTN, Smoking, COPD, CAD, Cancer, CVA, ARF, Chemo, Hep., AIDS, mental health diagnosis, sleep apnea, morbid obesity)? @ -CAD, hypertension Was patient admitted / discharged? Hospital course, mention meds given and route, prescriptions, significant lab abnormalities, going to OR and other pertinent info. @ -69-year-old male who presents with chief complaint of dyspnea. The history is somewhat limited in this patient. He states that he ran out of his albuterol. He is somewhat uncertain when asked if he experienced any chest pain associated with this. I did perform an EKG which showed significant ST segment depression in the lateral precordial leads. I therefore obtain laboratory testing as this patient does have a history of known CAD. Laboratory testing revealed a mild anemia. Normal electrolytes. He does have an elevated troponin at 1.5. This is significantly elevated above previous levels. He had a heart catheterization performed 1 month ago. I did initiate heparin and will admit for non-ST segment elevated ID for serial cardiac enzymes, telemetry, cardiology consultation. Undiagnosed new problem with uncertain prognosis? @ -[No] Drug Therapy requiring intensive monitoring for toxicity (Heparin, Nitro, Insulin, Cardizem)? @ -[No] Were any procedures done? @ -[No] Diagnosis/symptom? @ -[NSTEMI] Acute, or Chronic, or Acute on Chronic? @ -[acute] Uncomplicated (without systemic symptoms) or Complicated (systemic symptoms)? @ -[complicated] Side effects of treatment? @ -[No] Exacerbation, Progression, or Severe Exacerbation? @ -[No] Poses a threat to life or bodily function? How? (Chest pain, [place], ID, pneumonia, PE, COPD, DKA, ARF, appy, cholecystitis, CVA, Diverticulitis, Homicidal, Suicidal, threat to staff... and all critical care pts) @ -[Yes, arrhythmia, cardiogenic shock, sudden cardiac .] - Lab Data Result diagrams: 10/02/22 22:21 10/02/22 22:21 Lab Results 10/02/22 10/02/22 10/02/22 Range/Units 22:21 22:21 22:21 WBC 6.3 (3.8-10.6) k/uL RBC 3.72 L (4.30-5.90) m/uL Hgb 12.2 L (13.0-17.5) gm/dL Hct 36.4 L (39.0-53.0) % MCV 97.9 (80.0-100.0) fL MCH 32.7 (25.0-35.0) pg MCHC 33.4 (31.0-37.0) g/dL RDW 14.0 (11.5-15.5) % Plt Count 108 L (150-450) k/uL MPV 9.7 Neutrophils % 68 % Lymphocytes % 19 % Monocytes % 6 % Eosinophils % 3 % Basophils % 1 % Neutrophils # 4.3 (1.3-7.7) k/uL Lymphocytes # 1.2 (1.0-4.8) k/uL Monocytes # 0.4 (0-1.0) k/uL Eosinophils # 0.2 (0-0.7) k/uL Basophils # 0.0 (0-0.2) k/uL PT 11.5 (9.0-12.0) sec INR 1.1 (<1.2) APTT 25.2 (22.0-30.0) sec Sodium 139 (137-145) mmol/L Potassium 4.3 (3.5-5.1) mmol/L Chloride 103 (98-107) mmol/L Carbon Dioxide 25 (22-30) mmol/L Anion Gap 11 mmol/L BUN 19 (9-20) mg/dL Creatinine 1.13 (0.66-1.25) mg/dL Est GFR (CKD-EPI)AfAm 72 (>60 ml/min/1.73 sqM) Est GFR (CKD-EPI)NonAf 62 (>60 ml/min/1.73 sqM) Glucose 116 H (74-99) mg/dL Calcium 9.0 (8.4-10.2) mg/dL Magnesium 1.9 (1.6-2.3) mg/dL Total Bilirubin 0.7 (0.2-1.3) mg/dL AST 39 (17-59) U/L ALT 15 (4-49) U/L Alkaline Phosphatase 39 (38-126) U/L Troponin I (0.000-0.034) ng/mL Total Protein 5.9 L (6.3-8.2) g/dL Albumin 3.7 (3.5-5.0) g/dL 10/02/22 Range/Units 22:21 WBC (3.8-10.6) k/uL RBC (4.30-5.90) m/uL Hgb (13.0-17.5) gm/dL Hct (39.0-53.0) % MCV (80.0-100.0) fL MCH (25.0-35.0) pg MCHC (31.0-37.0) g/dL RDW (11.5-15.5) % Plt Count (150-450) k/uL MPV Neutrophils % % Lymphocytes % % Monocytes % % Eosinophils % % Basophils % % Neutrophils # (1.3-7.7) k/uL Lymphocytes # (1.0-4.8) k/uL Monocytes # (0-1.0) k/uL Eosinophils # (0-0.7) k/uL Basophils # (0-0.2) k/uL PT (9.0-12.0) sec INR (<1.2) APTT (22.0-30.0) sec Sodium (137-145) mmol/L Potassium (3.5-5.1) mmol/L Chloride (98-107) mmol/L Carbon Dioxide (22-30) mmol/L Anion Gap mmol/L BUN (9-20) mg/dL Creatinine (0.66-1.25) mg/dL Est GFR (CKD-EPI)AfAm (>60 ml/min/1.73 sqM) Est GFR (CKD-EPI)NonAf (>60 ml/min/1.73 sqM) Glucose (74-99) mg/dL Calcium (8.4-10.2) mg/dL Magnesium (1.6-2.3) mg/dL Total Bilirubin (0.2-1.3) mg/dL AST (17-59) U/L ALT (4-49) U/L Alkaline Phosphatase (38-126) U/L Troponin I 1.540 H* (0.000-0.034) ng/mL Total Protein (6.3-8.2) g/dL Albumin (3.5-5.0) g/dL Critical Care Time Critical Care Time: Yes Total Critical Care Time: 35 Disposition Clinical Impression: NSTEMI (non-ST elevated myocardial infarction) Disposition: ADMITTED IP TO THIS [facility] Condition: Serious Is patient prescribed a controlled substance at d/c from ED?: No Referrals: Chanda Pang MD [Primary Care Provider] - 1-2 days Time of Disposition: 00:42
[2022-10-02 23:03] LABS: Basophils % (A) 1 %; Eosinophils # (A) 0.2 k/uL (0-0.7); Eosinophils % (A) 3 %; HCT 36.4 % (39.0-53.0); HGB 12.2 gm/dL (13.0-17.5); Lymphocytes # (A) 1.2 k/uL (1.0-4.8); Lymphocytes % (A) 19 %; MCH 32.7 pg (25.0-35.0); MCHC 33.4 g/dL (31.0-37.0); MCV 97.9 fL (80.0-100.0); Mean Platelet Volume 9.7; Monocytes # (A) 0.4 k/uL (0-1.0); Monocytes % (A) 6 %; Neutrophils # (A) 4.3 k/uL (1.3-7.7); Neutrophils % (A) 68 %; Platelet Count 108 k/uL (150-450); RBC 3.72 m/uL (4.30-5.90); WBC 6.3 k/uL (3.8-10.6)
[2022-10-02 23:09] LABS: INR 1.1 (<1.2); Partial Thromboplastin Time 25.2 sec (22.0-30.0); Prothrombin Time 11.5 sec (9.0-12.0)
[2022-10-02 23:11] LABS: Albumin 3.7 g/dL (3.5-5.0); Total Bilirubin 0.7 mg/dL (0.2-1.3); Total Protein 5.9 g/dL (6.3-8.2)
--- NOTE | 2022-10-02 23:20 | XR ---
EXAMINATION TYPE: XR chest 2V DATE OF EXAM: 10/02/2022 COMPARISON: 09/04/22 HISTORY: Shortness of breath TECHNIQUE: Frontal and lateral views of the chest are obtained. FINDINGS: Scattered senescent parenchymal changes noted. Hyperinflation compatible with COPD. No evidence for infiltrate. No evidence for atelectasis. Heart size is stable. Mediastinal structures are stable and grossly unremarkable. No evidence for hilar prominence. Degenerative changes dorsal spine. IMPRESSION: 1. No evidence for acute pulmonary disease.
[2022-10-02 23:26] LABS: Magnesium 1.9 mg/dL (1.6-2.3); Potassium 4.3 mmol/L (3.5-5.1)
[2022-10-03] MEDS ORDERED: HEPARIN SODIUM 1,000 UN/ML (10ML VL) IV ONE (00:35)
[2022-10-03] MEDS ORDERED: HEPARIN SODIUM 1,000 UN/ML (10ML VL) IV PRN (00:35)
[2022-10-03] MEDS ORDERED: NALOXONE 0.4 MG/ML 1 ML VIAL IV PRN (00:36)
[2022-10-03] MEDS ORDERED: ASPIRIN 325 MG TAB PO STA ×2 (00:37→09:11)
[2022-10-03] MEDS: HEPARIN SOD,PORK IN 0.45% NACL 25,000 UNIT in 0.45% NACL 1 250ML.BAG IV SCH (00:52)
[2022-10-03] MEDS: SODIUM CHLORIDE 0.9% 1,000 ML IV SCH ×2 (00:53→15:56)
[2022-10-03] MEDS: HYDROcodone/APAP 5-325MG 1 EACH TAB PO PRN ×2 (01:38→09:30)
[2022-10-03] MEDS: ACETAMINOPHEN TAB 325 MG TAB PO PRN (05:11)
[2022-10-03] MEDS: CLOPIDOGREL 75 MG TAB PO SCH (08:22)
[2022-10-03] MEDS: POTASSIUM CHLORIDE ER 20 MEQ TAB.ER PO SCH (08:22)
[2022-10-03] MEDS: METOPROLOL TARTRATE 50 MG TAB PO SCH ×3 (08:22→21:09)
[2022-10-03] MEDS: ALBUTEROL NEBULIZED 2.5 MG/3 ML INHALATION PRN ×2 (08:24→11:49)
[2022-10-03] MEDS ORDERED: DIGOXIN 125 MCG TAB PO SCH ×2 (09:00→09:15)
[2022-10-03] MEDS ORDERED: FUROSEMIDE 40 MG TAB PO SCH (09:00)
[2022-10-03] MEDS ORDERED: NITROGLYCERIN SL TABS 0.4 MG TAB SUBLINGUAL PRN (09:11)
[2022-10-03] MEDS ORDERED: ALPRAZolam 0.25 MG TAB PO PRN (09:11)
[2022-10-03] MEDS ORDERED: ATORVASTATIN 80 MG TAB PO STA (09:11)
[2022-10-03] MEDS: ALPRAZolam 0.5 MG TAB PO PRN (11:46)
--- NOTE | 2022-10-03 12:57 | P.HPIM ---
History of Present Illness H&P Date: 10/03/22 Chief Complaint: Chest pain, shortness of breath 77-year-old gentleman with past medical history significant for atrial fibrillation, history of coronary artery disease recent PCI, hypertension, hyperlipidemia, history of CVA, history of BPH, history of ischemic cardiomyopathy status post AICD, gastroesophageal reflux disease presented to the emergency department with complains of ongoing chest pain, midsternal, associated with exertion. Patient also complained of dyspnea. Patient was short of breath and was out of his inhalers. Patient was recently discharged one week ago when he had cardiac catheterization done in PCI of the major diagonal branch At the time of presentation workup obtained showed CBC with hemoglobin of 12.2, platelet count of 108, basic metabolic panel showed normal renal profile, troponin obtained 1.540, follow-up 1.60, N-terminal proBNP 12 400 EKG obtained in ER showed atrial fibrillation with heart rate of 102, ST segment depression in anterior lateral leads was noted especially on the V5 and V6 and was started on IV heparin and admitted for further management Review of Systems REVIEW OF SYSTEMS: Essentially negative except chest pain shortness of breath CONSTITUTIONAL: No fever, no malaise, no fatigue. HEENT: No recent visual problems or hearing problems. Denied any sore throat. CARDIOVASCULAR: , orthopnea, PND, no palpitations, no syncope. PULMONARY: No , no cough, no hemoptysis. GASTROINTESTINAL: No diarrhea, no nausea, no vomiting, no abdominal pain. NEUROLOGICAL: No headaches, no weakness, no numbness. HEMATOLOGICAL: Denies any bleeding or petechiae. GENITOURINARY: Denies any burning micturition, frequency, or urgency. MUSCULOSKELETAL/RHEUMATOLOGICAL: Denies any joint pain, swelling, or any muscle pain. ENDOCRINE: Denies any polyuria or polydipsia. Past Medical History Past Medical History: Atrial Fibrillation, CVA/TIA, Eye Disorder, Hearing Disorder / Deafness, Hyperlipidemia, Myocardial Infarction ([place]), Prostate Disorder Additional Past Medical History / Comment(s): stroke-facial and left hand weakness, constipation, [place] in 1990. [employer]. RT MAC. DEG. cataracts, shots in the eye. retina issues. Last Myocardial Infarction Date:: 1990 History of Any Multi-Drug Resistant Organisms: None Reported Past Surgical History: AICD, Heart Catheterization With Stent, Orthopedic Surgery Additional Past Surgical History / Comment(s): left hip surgery,. COLONOSCOPY Past Anesthesia/Blood Transfusion Reactions: No Reported Reaction Date of Last Stent Placement:: 1990 Type of Cardiac Device: AICD Device Placement Date:: 2009 Past Psychological History: No Psychological Hx Reported Smoking Status: Former smoker Past Alcohol Use History: None Reported Additional Past Alcohol Use History / Comment(s): pt stats he no longer smokes. Past Drug Use History: None Reported - Past Family History Mother Family Medical History: No Reported History Medications and Allergies Home Medications Medication Instructions Recorded Confirmed Type Atorvastatin [Lipitor] 40 mg PO HS 07/17/16 10/03/22 History Ferrous Sulfate [Feosol] 325 mg PO DAILY 07/17/16 10/03/22 History Lansoprazole 30 mg PO DAILY 07/17/16 10/03/22 History Cholecalciferol [Vitamin D3 (25 25 mcg PO DAILY 08/06/21 10/03/22 History Mcg = 1000 Iu)] Eye Vitamin (Unknown Brand) 1 tab PO DAILY 08/11/22 10/03/22 History Saw [place] 500 mg PO DAILY 08/11/22 10/03/22 History Albuterol Inhaler [Ventolin Hfa 2 puff INHALATION RT-Q4H PRN 08/17/22 10/03/22 History Inhaler] Apixaban [Eliquis] 5 mg PO BID #60 tab 08/31/22 10/03/22 Rx Clopidogrel [Plavix] 75 mg PO DAILY #30 tab 08/31/22 10/03/22 Rx Dapagliflozin Propanediol [Farxiga] 10 mg PO DAILY #30 tab 08/31/22 10/03/22 Rx Furosemide [Lasix] 40 mg PO DAILY #30 tablet 08/31/22 10/03/22 Rx Potassium Chloride ER [K-Dur 20] 20 meq PO DAILY #30 tab 08/31/22 10/03/22 Rx lisinopriL 2.5 mg PO DAILY #30 tablet 08/31/22 10/03/22 Rx Budesonide-Formot 160-4.5 Mcg 2 puff INHALATION RT-BID #1 each 09/06/22 10/03/22 Rx [Symbicort 160-4.5 Mcg Inhaler] Digoxin [Lanoxin] 125 mcg PO DAILY #30 tab 09/06/22 10/03/22 Rx Metoprolol Tartrate [Lopressor] 100 mg PO TID #90 tab 09/06/22 10/03/22 Rx Temazepam [Restoril] 15 mg PO HS PRN 10/03/22 10/03/22 History Allergies Allergy/AdvReac Type Severity Reaction Status Date / Time No Known Allergies Allergy Verified 10/03/22 07:47 Physical Exam Vitals: Vital Signs Temp Pulse Pulse Resp BP BP Pulse Ox 10/03/22 12:00 68 10/03/22 11:49 68 10/03/22 11:45 62 18 104/62 95 10/03/22 08:37 72 10/03/22 08:24 68 97 10/03/22 08:21 97.6 F 67 18 104/63 98 10/03/22 04:00 98.1 F 78 17 98/59 97 10/03/22 01:30 98.1 F 59 L 18 109/72 98 10/03/22 01:05 98.4 F 98 16 98/77 98 10/03/22 00:09 79 20 97/63 99 10/02/22 22:59 116 H 10/02/22 22:36 117 H 10/02/22 22:35 117 H 10/02/22 22:25 116 H 10/02/22 21:43 97.5 F L 129 H 18 104/77 100 Intake and Output 10/02/22 10/03/22 10/03/22 22:59 06:59 14:59 Intake Total 75.935 Output Total 200 225 Balance -200 -149.065 Intake: Intake, IV Titration 75.935 Amount Heparin Sod,Pork in 0.45% 75.935 NaCl 25,000 unit In 0.45 % NaCl 1 250ml.bag @ 12 UNITS/KG/HR 8.165 mls/hr IV .Q24H [facility] Rx#: [id number] Output: Urine 200 225 Other: Voiding Method Toilet Toilet Urinal Urinal Weight 68.039 kg 68.039 kg PHYSICAL EXAMINATION: Vital reviewed GENERAL: The patient is alert and oriented x3, not in any acute distress. Well developed HEENT: Pupils are round and equally reacting to light. EOMI. No scleral icterus. No conjunctival pallor. Normocephalic, atraumatic. No pharyngeal erythema. CARDIOVASCULAR: S1 and S2 present. No murmurs, Edema not present PULMONARY: Chest is clear to auscultation, no wheezing or Ronchi ABDOMEN: Soft, nontender, nondistended, normoactive bowel sounds. No palpable organomegaly. MUSCULOSKELETAL: No joint swelling or deformity. EXTREMITIES: No cyanosis, clubbing, or pedal edema. NEUROLOGICAL: Gross neurological examination did not reveal any focal deficits. SKIN: No rashes. Results CBC & Chem 7: 10/02/22 22:21 10/02/22 22:21 Labs: Abnormal Lab Results - Last 24 Hours (Table) 10/02/22 10/02/22 10/02/22 Range/Units 22:21 22:21 22:21 RBC 3.72 L (4.30-5.90) m/uL Hgb 12.2 L (13.0-17.5) gm/dL Hct 36.4 L (39.0-53.0) % Plt Count 108 L (150-450) k/uL APTT (22.0-30.0) sec Glucose 116 H (74-99) mg/dL Troponin I 1.540 H* (0.000-0.034) ng/mL Total Protein 5.9 L (6.3-8.2) g/dL 10/03/22 10/03/22 10/03/22 Range/Units 03:40 09:03 09:03 RBC (4.30-5.90) m/uL Hgb (13.0-17.5) gm/dL Hct (39.0-53.0) % Plt Count (150-450) k/uL APTT 113.8 H* (22.0-30.0) sec Glucose (74-99) mg/dL Troponin I 1.430 H* 1.600 H* (0.000-0.034) ng/mL Total Protein (6.3-8.2) g/dL Thrombosis Risk Factor Assmnt - Choose All That Apply Any of the Below Risk Factors Present?: No Other Risk Factors: Yes Each Risk Factor Represents 3 Points: Age 75 years or older Other congenital or acquired thrombophilia - If yes, enter type in comment: No Thrombosis Risk Factor Assessment Total Risk Factor Score: 3 Thrombosis Risk Factor Assessment Level: Moderate Risk Assessment and Plan Assessment: Assessment and plan * Elevated troponin NSTEMI with history of coronary artery disease * Recent cardiac catheterization with PCI diagonal branch * Ischemic cardio myopathy history of AICD * Atrial flutter ablation with upper noted tenderness * History of asthma * In regards to elevated troponin, continue patient on IV heparin, cardiology following continue aspirin and Plavix and Lipitor plan for cardiac catheterization 10/04 * In regards to ischemic cardiomyopathy continue to monitor intake and output continue patient on Lasix, metoprolol * Regards to history of asthma continue patient on albuterol inhalation as needed nebulization if needed, Xanax as needed for anxiety * CODE STATUS is DO NOT RESUSCITATE * On IV heparin DVT prophylaxis addressed
[2022-10-03] MEDS: FUROSEMIDE 10 MG/ML 4 ML VIAL IV SCH ×2 (15:55→21:09)
[2022-10-03] MEDS: ATORVASTATIN 40 MG TAB PO SCH (21:09)
--- NOTE | 2022-10-03 21:12 | CONS ---
CONSULTATION HISTORY OF PRESENT ILLNESS: This is a 77-year-old gentleman with ischemic cardiomyopathy, who had an acute anterior NJ in , underwent PTCA of LAD. Since that time, his ejection fraction has been in the 25% range, and he has a single-chamber ICD. He has done well but recently has had recurrent hospitalizations. He has underlying atrial fibrillation, which is chronic with fair rate control. He has hypertension, hyperlipidemia, ischemic cardiomyopathy, ejection fraction in the 20% to 25% range. He presented with a azg-II-sfrqhfpek NJ in August week, and I performed a cardiac catheterization, noted that LAD was totally occluded. His RCA which is a dominant vessel and the circumflex were both free of significant disease. I performed PTCA of a major diagonal branch with a shock wave lithotripsy and drug-eluting stent, which was a 2.0-caliber stent, and dilated with a 2.75 NC Trek balloon. Since then, he has been hospitalized once with atrial fibrillation with rapid rate, but this time, he comes with increasing shortness of breath and also has tightness in the chest, but the quality of pain is very atypical. It occurs randomly. At this time, he is free of pain. He complains of some abdominal discomfort. He has basically relatively quick onset of shortness of breath. Then, he felt that he was also very anxious since his albuterol inhaler was empty. He felt very anxious and came into the hospital. However, he was also slightly hypoxic. His troponin levels are elevated suggestive of dhk-AV-myntiwjyh NJ. He is in atrial fibrillation, rate is about 90 to 100 beats per minute. He is resting at the time of my evaluation. PAST MEDICAL HISTORY: 1. Ischemic cardiomyopathy with prior anterior NJ, known occlusion of LAD. 2. PTCA and stenting of major diagonal branch on August 30. 3. Chronic atrial fibrillation. 4. History of ICD. 5. Hypertension. 6. Hyperlipidemia. MEDICATIONS AT HOME: Include: 1. Apixaban 5 mg b.i.d. 2. Plavix 75 mg daily. 3. Lasix 40 mg daily. 4. Metoprolol tartrate 100 mg t.i.d. 5. Digoxin 0.125 mg every other day. 6. Lisinopril 2.5 mg daily. ALLERGIES: None. PHYSICAL EXAMINATION: VITAL SIGNS: Blood pressure is 110/70. Pulse rate is about 80 to 90, irregular. HEENT: Unremarkable. Fundus was not examined by me NECK: Supple. There is JVD of 1 cm. No carotid bruit. HEART: Reveals S1 and S2 with irregularity in rhythm. Fair rate control. Short systolic murmur at left sternal border. LUNGS: Reveal bilateral fine rales over bases. ABDOMEN: Soft and nontender. EXTREMITIES: Lower extremities reveal diminished pulses. CENTRAL NERVOUS SYSTEM: Normal. DIAGNOSTIC STUDIES: EKG revealed atrial fibrillation, moderately rapid ventricular rate, nonspecific ST-T changes. LABORATORY DATA: Suggest troponin of 1.5, 1.4, and 1.6. BNP is elevated. Creatinine is 1.13. IMPRESSION: 1. Vef-PN-rhambxaxz myocardial infarction. 2. Atrial fibrillation, moderate ventricular rate. 3. Ischemic cardiomyopathy. 4. Hypertension. 5. Hyperlipidemia. 6. Recent percutaneous coronary intervention of major diagonal branch on August 30, 2022. RECOMMENDATIONS: I am recommending that we hold Eliquis, perform cardiac catheterization with a possible PCI tomorrow if indicated. Risks, benefits, options, and rationale were explained. We will decrease the digoxin to 0.125 mg every other day and hold Eliquis. The patient and understand the rationale, risks, benefits, and options and wish to proceed with cardiac catheterization, possible intervention. We will cautiously diurese him. Thank you very much for the consult. MMBRENTL / IJN: [id number] /
[2022-10-03] MEDS: SYMBICORT 160-4.5 MCG INHALER INHALATION SCH (21:52)
[2022-10-04] MEDS: ALPRAZolam 0.5 MG TAB PO PRN ×3 (01:23→14:15)
[2022-10-04] MEDS: HYDROcodone/APAP 5-325MG 1 EACH TAB PO PRN ×2 (01:30→14:15)
[2022-10-04] MEDS: ALBUTEROL NEBULIZED 2.5 MG/3 ML INHALATION PRN ×4 (01:38→23:24)
[2022-10-04] MEDS: HEPARIN SOD,PORK IN 0.45% NACL 25,000 UNIT in 0.45% NACL 1 250ML.BAG IV SCH (02:56)
[2022-10-04] MEDS: SODIUM CHLORIDE 0.9% 1,000 ML IV SCH ×3 (05:08→17:55)
[2022-10-04 06:05] LABS: Basophils % (A) 1 %; Eosinophils # (A) 0.2 k/uL (0-0.7); Eosinophils % (A) 3 %; HCT 35.6 % (39.0-53.0); HGB 11.8 gm/dL (13.0-17.5); Lymphocytes # (A) 1.1 k/uL (1.0-4.8); Lymphocytes % (A) 21 %; MCH 32.5 pg (25.0-35.0); MCHC 33.3 g/dL (31.0-37.0); MCV 97.6 fL (80.0-100.0); Mean Platelet Volume 9.7; Monocytes # (A) 0.3 k/uL (0-1.0); Monocytes % (A) 6 %; Neutrophils # (A) 3.2 k/uL (1.3-7.7); Neutrophils % (A) 65 %; Platelet Count 105 k/uL (150-450); RBC 3.64 m/uL (4.30-5.90); WBC 4.9 k/uL (3.8-10.6)
[2022-10-04 06:10] LABS: Glucose,Whole Blood 83 mg/dL (70-110)
[2022-10-04 06:22] LABS: Calcium 8.9 mg/dL (8.4-10.2); Magnesium 1.7 mg/dL (1.6-2.3); Potassium 4.1 mmol/L (3.5-5.1)
[2022-10-04] MEDS: DAPAGLIFLOZIN PROPANEDIOL 10 MG TABLET PO SCH (06:34)
[2022-10-04 06:40] LABS: INR 1.1 (<1.2); Partial Thromboplastin Time 26.5 sec (22.0-30.0); Prothrombin Time 11.4 sec (9.0-12.0)
[2022-10-04] MEDS: METOPROLOL TARTRATE 50 MG TAB PO SCH ×2 (06:48→20:35)
[2022-10-04] MEDS: POTASSIUM CHLORIDE ER 20 MEQ TAB.ER PO SCH (06:48)
[2022-10-04] MEDS: PANTOPRAZOLE 40 MG TABLET PO SCH (06:48)
[2022-10-04] MEDS: CLOPIDOGREL 75 MG TAB PO SCH (06:48)
[2022-10-04] MEDS: FERROUS SULFATE 325 MG TAB PO SCH (06:49)
[2022-10-04] MEDS ORDERED: ATORVASTATIN 80 MG TAB PO ONE (07:00)
[2022-10-04] MEDS ORDERED: HEPARIN SODIUM,PORCINE 2,500 UNIT in SODIUM CHLORIDE 0.9% 250 ML IRRIGATION PRN (07:00)
[2022-10-04] MEDS ORDERED: ASPIRIN 325 MG TAB PO ONE (07:00)
[2022-10-04] MEDS ORDERED: HEPARIN SODIUM,PORCINE 10,000 UNIT in SODIUM CHLORIDE 0.9% 1,000 ML IRRIGATION PRN (07:00)
[2022-10-04] MEDS: SYMBICORT 160-4.5 MCG INHALER INHALATION SCH ×2 (07:53→21:19)
[2022-10-04] MEDS ORDERED: VERAPAMIL 2.5 MG/ML 2 ML AMP ONE (09:41)
[2022-10-04] MEDS ORDERED: HEPARIN SODIUM 1,000 UN/ML (10ML VL) ONE (09:41)
[2022-10-04] MEDS ORDERED: LIDOCAINE 1% INJ 10MG/ML (20 ML MDV) SQ ONE (10:28)
[2022-10-04] MEDS ORDERED: LIDOCAINE 1% INJ 10MG/ML (20 ML MDV) ONE (10:28)
[2022-10-04] MEDS ORDERED: IV FLUID CONTINUATION 1,000 ML IV ONE (10:30)
[2022-10-04] MEDS ORDERED: fentaNYL (PF) 50 MCG/ML 2 ML AMP ONE (10:36)
[2022-10-04] MEDS ORDERED: fentaNYL (PF) 50 MCG/ML 2 ML AMP IV ONE (10:38)
[2022-10-04] MEDS ORDERED: HEPARIN SODIUM 1,000 UN/ML (10ML VL) IV ONE (10:50)
[2022-10-04] MEDS ORDERED: PHENYLEPHRINE-0.9% NACL SYG 1,000 MCG/10 ML SYRINGE IV ONE (11:00)
[2022-10-04] MEDS ORDERED: CLOPIDOGREL 75 MG TAB ONE (11:05)
[2022-10-04] MEDS ORDERED: CLOPIDOGREL 75 MG TAB PO ONE (11:10)
[2022-10-04] MEDS ORDERED: IOPAMIDOL-370 100ML BTL INJ ONE (11:11)
[2022-10-04] MEDS ORDERED: ATROPINE SULFATE 0.1 MG/ML 10ML SYRINGE IV PRN (11:16)
[2022-10-04] MEDS ORDERED: RX INFO: IV CONTRAST WAS GIVEN 1 EACH MISC MISCELLANE PRN (11:16)
[2022-10-04] MEDS ORDERED: NITROGLYCERIN SL TABS 0.4 MG TAB SUBLINGUAL PRN (11:16)
[2022-10-04] MEDS ORDERED: MAG HYDROX/AL HYDROX/SIMETH 30 ML CUP PO PRN (11:16)
[2022-10-04] MEDS ORDERED: ZOLPIDEM 5 MG TAB PO PRN (11:16)
--- NOTE | 2022-10-04 13:12 | P.PN ---
Subjective Progress Note Date: 10/04/22 Principal diagnosis: Chest pain shortness of breath Interval history: 77-year-old gentleman with past medical history significant for atrial fibrillation, history of coronary artery disease recent PCI, hypertension, hyperlipidemia, history of CVA, history of BPH, history of ische omayra cardiomyopathy status post AICD, gastroesophageal reflux disease presented to the emergency department with complains of ongoing chest pain. Patient was started on IV heparin, during the hospitalization patient was seen by cardiology and was taken for cardiac catheterization on 10/04. Patient to be monitored post procedure expected discharge when the next 24 hours once cleared by cardiology SUBJECTIVE : Patient seen post cardiac catheterization at bedside denies of any acute symptoms patient drowsy however easily arousable REVIEW OF SYSTEMS: NEGATIVE EXCEPT FOR chest pain automation resolve CONSTITUTIONAL: No fever, no malaise, no fatigue. HEENT: No recent visual problems or hearing problems. Denied any sore throat. CARDIOVASCULAR: No chest pain, orthopnea, PND, no palpitations, no syncope. PULMONARY: No shortness of breath, no cough, no hemoptysis. GASTROINTESTINAL: No diarrhea, no nausea, no vomiting, no abdominal pain. NEUROLOGICAL: No headaches, no weakness, no numbness. HEMATOLOGICAL: Denies any bleeding or petechiae. GENITOURINARY: Denies any burning micturition, frequency, or urgency. MUSCULOSKELETAL/RHEUMATOLOGICAL: Denies any joint pain, swelling, or any muscle pain. ENDOCRINE: Denies any polyuria or polydipsia. PHYSICAL EXAMINATION: Vitals reviewed GENERAL: The patient is alert and oriented x3, not in any acute distress. Well developed, well nourished. HEENT: Pupils are round and equally reacting to light. EOMI. No scleral icterus. No conjunctival pallor. Normocephalic, atraumatic. No pharyngeal erythema. No thyromegaly. CARDIOVASCULAR: S1 and S2 present. No murmurs, rubs, or gallops. Right femoral cardiac cath access no hematoma noted PULMONARY: Chest is clear to auscultation, no wheezing or crackles. ABDOMEN: Soft, nontender, nondistended, normoactive bowel sounds. No palpable organomegaly. MUSCULOSKELETAL: No joint swelling or deformity. EXTREMITIES: No cyanosis, clubbing, or pedal edema. NEUROLOGICAL: Gross neurological examination did not reveal any focal deficits. SKIN: No rashes. ASSESMENT & PLAN * Elevated troponin NSTEMI with history of coronary artery disease * Recent cardiac catheterization with PCI diagonal branch * Ischemic cardio myopathy history of AICD * Atrial flutter ablation with upper noted tenderness * History of asthma * In regards to elevated troponin, patient was on IV heparin which has been discontinued,. Continue aspirin, Plavix cardiac catheterization report pending at this time, cardiac meds updated by cardiology * In regards to ischemic cardiomyopathy continue to monitor intake and output continue patient on Lasix, metoprolol * Regards to history of asthma continue patient on albuterol inhalation as needed nebulization if needed, Xanax as needed for anxiety * CODE STATUS is DO NOT RESUSCITATE * SCDs for DVT prophylaxis Objective - Vital Signs Vital signs: Vital Signs Temp 97.2 F L 10/04/22 11:47 Pulse 64 10/04/22 12:01 Resp 16 10/04/22 12:31 BP 88/55 10/04/22 12:31 Pulse Ox 98 10/04/22 12:01 FiO2 Intake & Output 10/03/22 10/04/22 10/04/22 18:59 06:59 18:59 Intake Total 75.935 88.285 600 Output Total 525 600 Balance -449.065 -511.715 600 Weight 135.5 kg Intake: IV 10 600 Invasive Line 2 10 Intake, IV Titration 75.935 78.285 Amount Heparin Sod,Pork in 0.45% 75.935 78.285 NaCl 25,000 unit In 0.45 % NaCl 1 250ml.bag @ 12 UNITS/KG/HR 8.165 mls/hr IV .Q24H [facility] Rx#: [id number] Output: Urine 525 600 Other: Voiding Method Toilet Urinal Urinal Urinal - Labs CBC & Chem 7: 10/04/22 05:45 10/04/22 05:45 Labs: Abnormal Lab Results - Last 24 Hours (Table) 10/03/22 10/04/22 10/04/22 Range/Units 17:05 05:45 05:45 RBC 3.64 L (4.30-5.90) m/uL Hgb 11.8 L (13.0-17.5) gm/dL Hct 35.6 L (39.0-53.0) % Plt Count 105 L (150-450) k/uL APTT 55.5 H (22.0-30.0) sec Carbon Dioxide 32 H (22-30) mmol/L
[2022-10-04 14:15] VITALS: BMI 42.8
--- NOTE | 2022-10-04 14:49 | CC ---
CARDIAC CATHETERIZATION REPORT DATE OF SERVICE: 10/04/2022. PROCEDURES PERFORMED: 1. Left heart catheterization and coronary angiography. 2. Percutaneous transluminal coronary angioplasty of in-stent restenosis involving the major diagonal branch of left anterior descending with a 3.0-caliber noncompliant balloon. PERFORMED BY: Dr. Torie Ly. Moderate conscious sedation time was 38 minutes. The patient was administered Versed. Oxygen saturation, hemodynamics, and EKG were monitored closely. The patient received 25 mg of fentanyl. CLINICAL INFORMATION: Mr. Hola Duncan is a 77-year-old gentleman, who has ischemic cardiomyopathy, ejection fraction of 20%, previous LAD occlusion, and OR more than 25 years ago. On August 25, when he presented with a fne-RH-luiimxflm OR, I noted that LAD was occluded. RCA and circumflex were unremarkable. I performed stenting after shock wave lithotripsy of the major diagonal branch. However, the stent expansion was suboptimal even in spite of high pressures with 2.75 balloon. I used a fairly high pressure balloon, and the location of the stenosis is at a very angulated area. He has a 2.0- caliber 18-mm long Ricardo stent. Because of symptoms of chest pain and mild troponin elevation, I advised cardiac catheterization. PROCEDURE NOTE: Under local anesthesia and strict aseptic precautions, a 6-Arabic introducer was placed in the right femoral artery. Using standard Skinny catheters, I performed coronary angiography, and the same right catheter was used to check LV pressures. LV-gram was not performed. Following the procedure, I went ahead and performed PTCA of the diagonal branch to dilate the stent (that was placed about 5 weeks ago) in the proximal one-third with a larger 3.0 balloon. The patient tolerated the procedure well. He received 150 mg of Plavix, and he was sent to the room in a stable condition. Results were discussed with the patient and his . CARDIAC CATHETERIZATION FINDINGS: The left ventricular end-diastolic pressure was 5 mmHg without any gradient across aortic valve. CORONARY ANGIOGRAPHY FINDINGS: 1. RIGHT CORONARY ARTERY: Large dominant vessel, minor irregularities. No significant disease. Distally bifurcates into PDA and PLV. 2. LEFT MAIN CORONARY ARTERY: Short, patent vessel, free of significant disease. Bifurcates into LAD and circumflex. 3. LEFT ANTERIOR DESCENDING CORONARY ARTERY: This is totally occluded in the midportion after diagonal and septal branch. The diagonal branch has a stent in the proximal portion, which is patent with brisk flow, but there is some narrowing in the area of up to 80% in some views. The LAD is totally occluded. 4. LEFT POSTERIOR CIRCUMFLEX CORONARY ARTERY: This is a nondominant vessel, minor irregularities. This is a small-caliber, small-distribution vessel. No significant disease. LEFT VENTRICULOGRAM: Not performed. FINAL IMPRESSION: This patient has normal filling pressures. No gradient. Dominant right coronary artery without significant disease and circumflex nondominant without significant disease. Left anterior descending is totally occluded, and the diagonal branch which was stented with a heavily calcified vessel that was addressed with shock wave and noncompliant balloon and drug-eluting stent of 2.0 caliber, dilated with a 2.75 caliber, now has a restenosis of 80%. RECOMMENDATIONS: I recommended PTCA of the diagonal and proceeded to perform in the same setting. PCI PROCEDURE DETAILS: I used a JL3.5 guide catheter and a Whisper straight wire. Wire was kept distally. I used a 3.0-caliber NC Trek balloon and dilated the proximal portion of the stented segment up to 15 atmospheres. There was modest improvement, but there was still a difficult lesion. I did not feel that I should increase the size of the balloon since it would be over-sizing a lot and he did have some angle, and there was a risk of perforation. Good angiographic result was achieved. Brisk flow was noted. No complication was evident. The sheath was taken out, and Angio-Seal device was used to secure hemostasis, and he was sent to the room in a stable condition. Good angiographic result without complication was achieved. Results were discussed with the patient and . He received 150 mg of Plavix. He will be on aspirin and Plavix without interruption for 1 year. MMODL / IJN: [id number] /
[2022-10-04] MEDS: APIXABAN 5 MG TAB PO SCH (20:35)
[2022-10-04] MEDS: ATORVASTATIN 40 MG TAB PO SCH (20:35)
[2022-10-04] MEDS: ACETAMINOPHEN TAB 325 MG TAB PO PRN (20:35)
[2022-10-05] MEDS: ALPRAZolam 0.5 MG TAB PO PRN (01:18)
[2022-10-05] MEDS: ALBUTEROL NEBULIZED 2.5 MG/3 ML INHALATION PRN ×3 (04:16→11:42)
[2022-10-05] MEDS: PANTOPRAZOLE 40 MG TABLET PO SCH (07:10)
[2022-10-05 08:34] LABS: ALT 13 U/L (4-49); AST 27 U/L (17-59); African American GFR (CKD) >90 (>60 ml/min/1.73 sqM); Alkaline Phosphatase 36 U/L (38-126); Anion Gap 4 mmol/L; Blood Urea Nitrogen 14 mg/dL (9-20); Calcium 8.5 mg/dL (8.4-10.2); Carbon Dioxide 27 mmol/L (22-30); Chloride 108 mmol/L (98-107); Glucose 78 mg/dL (74-99); Magnesium 1.8 mg/dL (1.6-2.3); Non-African American GFR(CKD) 84 (>60 ml/min/1.73 sqM); Sodium 139 mmol/L (137-145); Total Bilirubin 0.8 mg/dL (0.2-1.3)
[2022-10-05 08:48] LABS: Potassium 3.8 mmol/L (3.5-5.1)
[2022-10-05] MEDS: SYMBICORT 160-4.5 MCG INHALER INHALATION SCH (08:59)
[2022-10-05] MEDS ORDERED: ASPIRIN 81 MG PO SCH (09:00)
[2022-10-05] MEDS ORDERED: DIGOXIN 125 MCG TAB PO SCH (09:00)
[2022-10-05] MEDS: APIXABAN 5 MG TAB PO SCH (09:09)
[2022-10-05] MEDS: CLOPIDOGREL 75 MG TAB PO SCH (09:09)
[2022-10-05] MEDS: DAPAGLIFLOZIN PROPANEDIOL 10 MG TABLET PO SCH (09:10)
[2022-10-05] MEDS: FERROUS SULFATE 325 MG TAB PO SCH (09:10)
[2022-10-05] MEDS: POTASSIUM CHLORIDE ER 20 MEQ TAB.ER PO SCH (09:11)
[2022-10-05] MEDS: METOPROLOL TARTRATE 50 MG TAB PO SCH (09:12)
[2022-10-05] MEDS: SODIUM CHLORIDE 0.9% 1,000 ML IV SCH (11:39)
[2022-10-05 12:15] VITALS: BP 94/59; PULSE 65; RESP 16; TEMP 97.4
--- NOTE | 2022-10-05 13:29 | P.DS ---
Providers Date of admission: 10/03/22 00:37 Expected date of discharge: 10/05/22 Attending physician: Ollie Coelho Consults: 10/03/22 00:36 Consult Physician Routine Consulting Provider: [facility] Consult Reason/Comments: NSTEMI Do you want consulting provider notified?: Yes 10/04/22 11:16 Consult Physician Routine Consulting Provider: [facility] Consult Reason/Comments: Post Interventional Patient Do you want consulting provider notified?: Already Contacted Primary care physician: Chanda Pang Hospital Course: Discharge diagnoses; * Elevated troponin NSTEMI with history of coronary artery disease * Recent cardiac catheterization with PCI diagonal branch * Ischemic cardio myopathy history of AICD * Atrial flutter ablation * History of asthma Hospital course; 77-year-old gentleman with past medical history significant for atrial fibrillation, history of coronary artery disease recent PCI, hypertension, hyperlipidemia, history of CVA, history of BPH, history of ischemic cardiomyopathy status post AICD, gastroesophageal reflux disease presented to the emergency department with complains of ongoing chest pain, midsternal, associated with exertion. Patient also complained of dyspnea. Patient was short of breath and was out of his inhalers. Patient was recently discharged one week ago when he had cardiac catheterization done in PCI of the major diagonal branch At the time of presentation workup obtained showed CBC with hemoglobin of 12.2, platelet count of 108, basic metabolic panel showed normal renal profile, troponin obtained 1.540, follow-up 1.60, N-terminal proBNP 12 400 EKG obtained in ER showed atrial fibrillation with heart rate of 102, ST segment depression in anterior lateral leads was noted especially on the V5 and V6 and was started on IV heparin and admitted for further management Patient underwent cardiac cath and PTCA of the diagonal status post cardiac cath patient is doing well, being discharged in stable condition PHYSICAL EXAMINATION: GENERAL: The patient is alert and oriented x3, not in any acute distress. Well developed, well nourished. HEENT: Pupils are round and equally reacting to light. EOMI. No scleral icterus. No conjunctival pallor. Normocephalic, atraumatic. No pharyngeal erythema. No thyromegaly. CARDIOVASCULAR: S1 and S2 present. No murmurs, rubs, or gallops. PULMONARY: Chest is clear to auscultation, no wheezing or crackles. ABDOMEN: Soft, nontender, nondistended, normoactive bowel sounds. No palpable organomegaly. MUSCULOSKELETAL: No joint swelling or deformity. EXTREMITIES: No cyanosis, clubbing, or pedal edema. NEUROLOGICAL: Gross neurological examination did not reveal any focal deficits. SKIN: No rashes. Patient Condition at Discharge: Good Plan - Discharge Summary Discharge Rx Participant: No New Discharge Prescriptions: Continue Atorvastatin [Lipitor] 40 mg PO HS Lansoprazole 30 mg PO DAILY Ferrous Sulfate [Feosol] 325 mg PO DAILY Albuterol Inhaler [Ventolin Hfa Inhaler] 2 puff INHALATION RT-Q4H PRN PRN Reason: Dyspnea Apixaban [Eliquis] 5 mg PO BID #60 tab Dapagliflozin Propanediol [Farxiga] 10 mg PO DAILY #30 tab Clopidogrel [Plavix] 75 mg PO DAILY #30 tab lisinopriL 2.5 mg PO DAILY #30 tablet Metoprolol Tartrate [Lopressor] 100 mg PO TID #90 tab Temazepam [Restoril] 15 mg PO HS PRN PRN Reason: Insomnia Cholecalciferol [Vitamin D3 (25 Mcg = 1000 Iu)] 25 mcg PO DAILY Eye Vitamin (Unknown Brand) 1 tab PO DAILY [place] 500 mg PO DAILY Potassium Chloride ER [K-Dur 20] 20 meq PO DAILY #30 tab Furosemide [Lasix] 40 mg PO DAILY #30 tablet Budesonide-Formot 160-4.5 Mcg [Symbicort 160-4.5 Mcg Inhaler] 2 puff INHALATION RT-BID #1 each Discontinued Digoxin [Lanoxin] 125 mcg PO DAILY #30 tab Discharge Medication List Atorvastatin [Lipitor] 40 mg PO HS 07/17/16 [History] Ferrous Sulfate [Feosol] 325 mg PO DAILY 07/17/16 [History] Lansoprazole 30 mg PO DAILY 07/17/16 [History] Cholecalciferol [Vitamin D3 (25 Mcg = 1000 Iu)] 25 mcg PO DAILY 08/06/21 [History] Eye Vitamin (Unknown Brand) 1 tab PO DAILY 08/11/22 [History] Saw [place] 500 mg PO DAILY 08/11/22 [History] Albuterol Inhaler [Ventolin Hfa Inhaler] 2 puff INHALATION RT-Q4H PRN 08/17/22 [History] Apixaban [Eliquis] 5 mg PO BID #60 tab 08/31/22 [Rx] Clopidogrel [Plavix] 75 mg PO DAILY #30 tab 08/31/22 [Rx] Dapagliflozin Propanediol [Farxiga] 10 mg PO DAILY #30 tab 08/31/22 [Rx] Furosemide [Lasix] 40 mg PO DAILY #30 tablet 08/31/22 [Rx] Potassium Chloride ER [K-Dur 20] 20 meq PO DAILY #30 tab 08/31/22 [Rx] lisinopriL 2.5 mg PO DAILY #30 tablet 08/31/22 [Rx] Budesonide-Formot 160-4.5 Mcg [Symbicort 160-4.5 Mcg Inhaler] 2 puff INHALATION RT-BID #1 each 09/06/22 [Rx] Metoprolol Tartrate [Lopressor] 100 mg PO TID #90 tab 09/06/22 [Rx] Temazepam [Restoril] 15 mg PO HS PRN 10/03/22 [History] Follow up Appointment(s)/Referral(s): Srinath Ly MD [STAFF PHYSICIAN] - 1 Week ([facility] office will contact you with appointment date and time.) [facility] [facility] [NON-STAFF] - Chanda Pang MD [Primary Care Provider] - 10/10/22 9:00 am [facility] Visiting Nurse, [NON-STAFF] - Discharge/Stand Alone Forms: Who Do I Call?, Personal Patient Financial Counselor Discharge Disposition: HOME SELF-CARE
[2022-10-05] MEDS: ACETAMINOPHEN TAB 325 MG TAB PO PRN (14:03)
--- NOTE | 2022-10-05 15:20 | P.PN ---
Subjective Progress Note Date: 10/05/22 History of present illness: Patient is seen in follow-up following non-ST elevated myocardial infarction and atrial fibrillation moderately controlled ventricular rate. Yesterday, patient underwent left heart catheterization and PTCA of the diagonal. Patient was found to have a dominant right coronary artery without significant disease and circumflex nondominant without significant disease. LAD is totally occluded in the diagonal branch which was stented with a heavily calcified vessel that was addressed with shockwave and noncompliant balloon and drug-eluting stent. Physical examination: Gen: This is a [ ] VS: reviewed HEENT: Head is atraumatic, normocephalic. Pupils equal, round. Sclerae is anicteric. NECK: Supple. No JVD. . LUNGS: Clear to auscultation. No wheezes or rhonchi. No intercostal retractions. HEART: Regular rate and rhythm. No murmur. ABDOMEN: Soft No tenderness. EXTREMITIES: No pedal edema. No calf tenderness. NEUROLOGICAL: Patient is awake, alert and oriented x3. Assessment: Non-ST elevated myocardial infarction Ischemic cardiomyopathy History of coronary artery disease Chronic atrial fibrillation Hypertension Hyperlipidemia Recent percutaneous coronary intervention of diagonal branch on 08/30/2022 Plan: Patient is cleared for discharge home on the current cardiac medications. Patient follow-up with Dr. Ly in the office in 7-10 days. Nurse practitioner note has been reviewed, I agree with documented findings and plan of care. Patient was seen and examined. Objective - Vital Signs Vital signs: Vital Signs Temp 97.5 F L 10/05/22 07:28 Pulse 74 10/05/22 09:01 Resp 18 10/05/22 07:28 BP 98/53 10/05/22 07:28 Pulse Ox 99 10/05/22 09:01 FiO2 Intake & Output 10/04/22 10/05/22 10/05/22 18:59 06:59 18:59 Intake Total 840 50 240 Output Total 250 Balance 590 50 240 Weight 135.5 kg Intake: IV 600 50 Invasive Line 2 50 Oral 240 240 Output: Urine 250 Other: Voiding Method Urinal Toilet Urinal # Voids 1 1 - Labs CBC & Chem 7: 10/04/22 05:45 10/05/22 07:57 Labs: Abnormal Lab Results - Last 24 Hours (Table) 10/05/22 Range/Units 07:57 Chloride 108 H (98-107) mmol/L Alkaline Phosphatase 36 L (38-126) U/L Total Protein 5.0 L (6.3-8.2) g/dL Albumin 3.0 L (3.5-5.0) g/dL
== END 2022-10-05 14:30 | disposition home or self-care (01) | DRG 251 ==
LOC: EC 21:39 → 3SCARD 10-03 00:37
PROVIDERS: ADMIT Internal Medicine; ATTEND Internal Medicine
PROC: B2111ZZ Fluoroscopy of Multiple Coronary Arteries using Low Osmolar Contrast (ICD-10-PCS; 2022-10-04)
PROC: 02703ZZ Dilation of Coronary Artery, One Artery, Percutaneous Approach (ICD-10-PCS; principal; 2022-10-04 09:00)
PROC: 4A023N7 Measurement of Cardiac Sampling and Pressure, Left Heart, Percutaneous Approach (ICD-10-PCS; 2022-10-04 09:00)
DX: I21.4 Non-ST elevation (NSTEMI) myocardial infarction (principal); I48.20 Chronic atrial fibrillation, unspecified; I48.92 Unspecified atrial flutter; T82.855A Stenosis of coronary artery stent, initial encounter; E78.5 Hyperlipidemia, unspecified; H91.90 Unspecified hearing loss, unspecified ear; I10 Essential (primary) hypertension; I25.10 Atherosclerotic heart disease of native coronary artery without angina pectoris; I25.5 Ischemic cardiomyopathy; Z66 Do not resuscitate; N40.0 Benign prostatic hyperplasia without lower urinary tract symptoms; Y71.2 Prosthetic and other implants, materials and accessory cardiovascular devices associated with adverse incidents; I25.2 Old myocardial infarction; Z79.01 Long term (current) use of anticoagulants; Z79.02 Long term (current) use of antithrombotics/antiplatelets; Z79.51 Long term (current) use of inhaled steroids; Z79.82 Long term (current) use of aspirin; Z79.84 Long term (current) use of oral hypoglycemic drugs; Z79.899 Other long term (current) drug therapy; Z86.73 Personal history of transient ischemic attack (TIA), and cerebral infarction without residual deficits; Z87.891 Personal history of nicotine dependence; Z95.810 Presence of automatic (implantable) cardiac defibrillator
CPT/HCPCS: 36415; 71046; 80048; 80053; 83735; 83880; 84484; 85025; 85610; 85730; 92920; 93005; 93458; 94640; 94760; 96365; 96374; 99291

== ENCOUNTER → 2023-04-16 | Outpatient (CLI) | payer MEDICARE ==
--- NOTE | 2023-04-16 15:40 | US ---
EXAMINATION TYPE: US arterial LE multi level DATE OF EXAM: 04/16/2023 3:01 PM CLINICAL INDICATION: Male, 77 years old with history of I73.9 PAD; PAD. Patient feels coldness in clara ateral feet. History of: Smoker: Previous Hypertension: Yes Diabetic: No Hyperlipidemia: Yes TIA/CVA: Yes Previous Vascular Surgery: Patient has had cardiac stents placed. CAD: PA: Yes Vascular Ulcers: No Claudication: Gangrene: No Right Brachial Pressure: 103 Left Brachial Pressure: 90 Ankle-Brachial Indices: Right: 0.86 *Right DP was CNO. Left: 0.93 Toe Brachial Indices: Right: 0.72 Left: 0.59 (Vessel hardening > 1.4; Normal 0.9 - 1.4, Moderate 0.7 - 0.9, Severe 0.5-0.7) Waveforms are suboptimal which may be due to technique. IMPRESSION: Moderate right and normal left peripheral vascular disease by ankle-brachial indices.
== END | disposition home or self-care (01) ==
LOC: RADUSWWP 14:06
PROVIDERS: ATTEND Internal Medicine
DX: I73.9 Peripheral vascular disease, unspecified (principal)
CPT/HCPCS: 93923

== ENCOUNTER 2023-07-12 13:55 | Inpatient (IN) | payer MEDICARE ==
--- NOTE | 2023-07-12 15:13 | XR ---
EXAMINATION TYPE: XR chest 2V DATE OF EXAM: 07/12/2023 COMPARISON: 10/02/2022 HISTORY: 77 year-old male shortness of breath, difficulty breathing TECHNIQUE: AP and lateral views FINDINGS: Left anterior chest wall AICD generator with right ventricular lead. Heart mildly enlarged. Hyperinfl ation. No consolidation. Trace pleural effusions on the lateral view. Advanced degenerative change of both shoulders. IMPRESSION: Cardiomegaly and trace pleural effusions seen on the lateral view. Suspect sequela of mild CHF. No pu lmonary edema or annette pulmonary vascular congestion seen.
[2023-07-12 15:19] LABS: Basophils % (A) 0 %; Eosinophils % (A) 0 %; HCT 41.9 % (39.0-53.0); HGB 13.6 gm/dL (13.0-17.5); Hypochromasia Slight; Lymphocytes # (A) 0.7 k/uL (1.0-4.8); Lymphocytes % (A) 7 %; MCH 32.3 pg (25.0-35.0); MCHC 32.5 g/dL (31.0-37.0); MCV 99.3 fL (80.0-100.0); Macrocytosis Slight; Mean Platelet Volume 10.2; Monocytes # (A) 0.6 k/uL (0-1.0); Monocytes % (A) 7 %; Neutrophils # (A) 7.3 k/uL (1.3-7.7); Neutrophils % (A) 82 %; Platelet Count 150 k/uL (150-450); RBC 4.22 m/uL (4.30-5.90); RDW 15.4 % (11.5-15.5); WBC 8.9 k/uL (3.8-10.6)
[2023-07-12 15:28] LABS: INR 1.3 (<1.2); Partial Thromboplastin Time 26.7 sec (22.0-30.0); Prothrombin Time 13.2 sec (10.0-12.5)
[2023-07-12 15:56] LABS: ALT 38 U/L (4-49); African American GFR (CKD) 58 (>60 ml/min/1.73 sqM); Albumin 3.5 g/dL (3.5-5.0); Anion Gap 8 mmol/L; Blood Urea Nitrogen 35 mg/dL (9-20); Calcium 10.2 mg/dL (8.4-10.2); Carbon Dioxide 25 mmol/L (22-30); Chloride 107 mmol/L (98-107); Glucose 109 mg/dL (74-99); Non-African American GFR(CKD) 50 (>60 ml/min/1.73 sqM); Sodium 140 mmol/L (137-145); Total Bilirubin 1.1 mg/dL (0.2-1.3); Total Protein 5.8 g/dL (6.3-8.2)
[2023-07-12] MEDS ORDERED: HEPARIN SODIUM 1,000 UN/ML (10ML VL) IV PRN (16:00)
[2023-07-12] MEDS ORDERED: HEPARIN SODIUM 1,000 UN/ML (10ML VL) IV ONE (16:00)
--- NOTE | 2023-07-12 16:02 | ED ---
General Adult HPI - General Chief complaint: Shortness of Breath Stated complaint: Dizziness Time Seen by Provider: 07/12/23 14:19 Source: patient, EMS Mode of arrival: EMS Limitations: no limitations - History of Present Illness Initial comments: Hola is a pleasant 77 male with extensive past medical history most significant for ischemic cardiomyopathy, persistent atrial fibrillation, pacemaker in place. Patient presents the ER today reporting that for the past couple of weeks he just can't breathe. Patient states he just can't catch his breath. He is not coughing he is not wheezing he's not having any chest pain. He states he just feels like he is not getting enough air. He has not noticed any swelling of his lower extremities. reports he just been less active and isn't feeling well. No sick contacts known also in the home is feeling unwell. - Related Data Home Medications Medication Instructions Recorded Confirmed Atorvastatin [Lipitor] 40 mg PO DAILY 07/17/16 07/12/23 Lansoprazole 30 mg PO DAILY 07/17/16 07/12/23 Cholecalciferol [Vitamin D3 (25 25 mcg PO DAILY 08/06/21 07/12/23 Mcg = 1000 Iu)] Saw Thaxton 500 mg PO DAILY 08/11/22 07/12/23 Albuterol Inhaler [Ventolin Hfa 2 puff INHALATION RT-Q4H PRN 08/17/22 07/12/23 Inhaler] Isosorbide Mononitrate ER [Imdur] 30 mg PO DAILY 07/12/23 07/12/23 Metoprolol Tartrate [Lopressor] 100 mg PO TID@0900,1600,2100 07/12/23 07/12/23 Vit C/E/Zn/Coppr/Lutein/Zeaxan 1 cap PO DAILY 07/12/23 07/12/23 [Preservision Areds 2 Softgel] lisinopriL 1.25 mg PO DAILY 07/12/23 07/12/23 Previous Rx's Medication Instructions Recorded Apixaban [Eliquis] 5 mg PO BID #60 tab 08/31/22 Clopidogrel [Plavix] 75 mg PO DAILY #30 tab 08/31/22 Dapagliflozin Propanediol [Farxiga] 10 mg PO DAILY #30 tab 08/31/22 Furosemide [Lasix] 40 mg PO DAILY #30 tablet 08/31/22 Potassium Chloride ER [K-Dur 20] 20 meq PO DAILY #30 tab 08/31/22 Allergies Allergy/AdvReac Type Severity Reaction Status Date / Time No Known Allergies Allergy Verified 07/12/23 15:26 Review of Systems ROS Statement: Those systems with pertinent positive or pertinent negative responses have been documented in the HPI. ROS Other: All systems not noted in ROS Statement are negative. Past Medical History Past Medical History: Atrial Fibrillation, CVA/TIA, Eye Disorder, Hearing Disorder / Deafness, Hyperlipidemia, Myocardial Infarction ([place]), Prostate Disorder Additional Past Medical History / Comment(s): stroke-facial and left hand weakness, constipation, [place] in 1990. [place]. RT MAC. DEG. cataracts, shots in the eye. retina issues. Last Myocardial Infarction Date:: 1990 History of Any Multi-Drug Resistant Organisms: None Reported Past Surgical History: AICD, Heart Catheterization With Stent, Orthopedic Surgery Additional Past Surgical History / Comment(s): left hip surgery,. COLONOSCOPY Past Anesthesia/Blood Transfusion Reactions: No Reported Reaction Date of Last Stent Placement:: 1990 Type of Cardiac Device: AICD Device Placement Date:: 2009 Past Psychological History: No Psychological Hx Reported Smoking Status: Former smoker Past Alcohol Use History: None Reported Past Drug Use History: None Reported - Past Family History Mother Family Medical History: No Reported History General Exam Limitations: no limitations General appearance: alert Head exam: Present: atraumatic Respiratory exam: Present: other (Tachypnea, crackles at the bases) Cardiovascular Exam: Present: tachycardia GI/Abdominal exam: Present: soft Extremities exam: Present: pedal edema Neurological exam: Present: alert, oriented X3, other (Patient is at his baseline per , some slurred speech, very hard of hearing some facial droop chronic from previous stroke) Psychiatric exam: Present: normal affect, normal mood Skin exam: Present: warm, dry Course Vital Signs 07/12/23 07/12/23 07/12/23 14:02 17:08 18:01 Temperature 97.6 F Pulse Rate 103 H 96 107 H Respiratory 18 18 18 Rate Blood Pressure 104/54 83/39 95/64 O2 Sat by Pulse 100 99 99 Oximetry EKG Findings - EKG Comments: EKG Findings:: EKG interpreted by me, EKG obtained due to this of breath, EKG obtained at 1450, rate is 95 rhythm is a there are complex irregular rhythm consistent with atrial fibrillation. Some mild ST depressions laterally with T- wave inversions noted in V4. No ST elevations. When compared to EKG from last year Medical Decision Making - Medical Decision Making Was pt. sent in by a medical professional or institution (, [facility]AM, COUNTERINTELLIGENCE/HUMINT SPECIALIST, urgent care, hospital, or care home...) When possible be specific @ -No Did you speak to anyone other than the patient for history (EMS, parent, family, police, friend...)? What history was obtained from this source @ - Did you review nursing and triage notes (agree or disagree)? Why? @ -I reviewed and agree with nursing and triage notes Were old charts reviewed (outside hosp., previous admission, EMS record, old EKG, old radiological studies, urgent care reports/EKG's, care home records)? Report findings @ -Previous admission, cath reports and EKG reviewed Differential Diagnosis (chest pain, altered mental status, abdominal pain women, abdominal pain men, vaginal bleeding, weakness, fever, dyspnea, syncope, headache, dizziness, GI bleed, back pain, seizure, CVA, palpatations, mental health)? @ -Differential Dyspnea: Coronary syndrome, arrhythmia, tamponade, asthma, COPD, pulmonary embolism, pneumonia, pneumothorax, pulmonary effusion, anaphylaxis, diabetic ketoacidosis, flailed chest, pulmonary contusion, diaphragmatic rupture, anemia, neuromuscular, this is not meant to be an all-inclusive list. EKG interpreted by me (3pts min.). @ -As above X-rays interpreted by me (1pt min.). @ -Evidence of cardiomegaly and CHF CT interpreted by me (1pt min.). @ -None done U/S interpreted by me (1pt. min.). @ -None done What testing was considered but not performed or refused? (CT, X-rays, U/S, labs)? Why? @ -Echo can be performed inpatient if recommended by cardiology What meds were considered but not given or refused? Why? @ -None Did you discuss the management of the patient with other professionals (professionals i.e. ARAM Agustin, COUNTERINTELLIGENCE/HUMINT SPECIALIST, lab, RT, psych nurse, social staff worker, avionics system engineer, teacher, resident medical officer, correctional case manager)? Give summary @ -No Was smoking cessation discussed for >3mins.? @ -No Was critical care preformed (if so, how long)? @ -Yes, 30 min Were there social determinants of health that impacted care today? How? (Homelessness, low income, unemployed, alcoholism, drug addiction, transportation, low edu. Level, literacy, decrease access to med. care, alf, rehab)? @ -No Was there de-escalation of care discussed even if they declined (Discuss DNR or withdrawal of care, Hospice)? DNR status @ -Yes, patient wishes to be DNR What co-morbidities impacted this encounter? (DM, HTN, Smoking, COPD, CAD, Cancer, CVA, ARF, Chemo, Hep., AIDS, mental health diagnosis, sleep apnea, morbid obesity)? @ -CAD, CHF, ischemic heart disease Was patient admitted / discharged? Hospital course, mention meds given and route, prescriptions, significant lab abnormalities, going to OR and other pertinent info. @ - Admitted Patient seen and evaluated, history and workup concerning for CHF exacerbation due to ischemic heart disease, troponin positive, Heparin ordered Undiagnosed new problem with uncertain prognosis? @ -No Drug Therapy requiring intensive monitoring for toxicity (Heparin, Nitro, Insulin, Cardizem)? @ -Yes, Heparin Were any procedures done? @ -No Diagnosis/symptom? @ -NSTEMI Acute, or Chronic, or Acute on Chronic? @ - acute on chronic Uncomplicated (without systemic symptoms) or Complicated (systemic symptoms)? @ -Complicated Side effects of treatment? @ -No Exacerbation, Progression, or Severe Exacerbation? @ -No Poses a threat to life or bodily function? How? (Chest pain, [place], [place], pneumonia, PE, COPD, DKA, ARF, appy, cholecystitis, CVA, Diverticulitis, Homicidal, Suicida l, threat to staff... and all critical care pts) @ -[Yes, high risk of acute cardiac event, [place], arrhythmia or CHF - Lab Data Result diagrams: 07/12/23 15:06 07/12/23 15:06 Lab Results 07/12/23 07/12/23 07/12/23 Range/Units 15:06 15:06 15:06 WBC 8.9 (3.8-10.6) k/uL RBC 4.22 L (4.30-5.90) m/uL Hgb 13.6 (13.0-17.5) gm/dL Hct 41.9 (39.0-53.0) % MCV 99.3 (80.0-100.0) fL MCH 32.3 (25.0-35.0) pg MCHC 32.5 (31.0-37.0) g/dL RDW 15.4 (11.5-15.5) % Plt Count 150 (150-450) k/uL MPV 10.2 Neutrophils % 82 % Lymphocytes % 7 % Monocytes % 7 % Eosinophils % 0 % Basophils % 0 % Neutrophils # 7.3 (1.3-7.7) k/uL Lymphocytes # 0.7 L (1.0-4.8) k/uL Monocytes # 0.6 (0-1.0) k/uL Eosinophils # 0.0 (0-0.7) k/uL Basophils # 0.0 (0-0.2) k/uL Hypochromasia Slight Macrocytosis Slight PT 13.2 H (10.0-12.5) sec INR 1.3 H (<1.2) APTT 26.7 (22.0-30.0) sec Sodium 140 (137-145) mmol/L Potassium 5.2 H (3.5-5.1) mmol/L Chloride 107 (98-107) mmol/L Carbon Dioxide 25 (22-30) mmol/L Anion Gap 8 mmol/L BUN 35 H (9-20) mg/dL Creatinine 1.35 H (0.66-1.25) mg/dL Est GFR (CKD-EPI)AfAm 58 (>60 ml/min/1.73 sqM) Est GFR (CKD-EPI)NonAf 50 (>60 ml/min/1.73 sqM) Glucose 109 H (74-99) mg/dL Plasma Lactic Acid Pavan (0.7-2.0) mmol/L Calcium 10.2 (8.4-10.2) mg/dL Total Bilirubin 1.1 (0.2-1.3) mg/dL AST 43 (17-59) U/L ALT 38 (4-49) U/L Alkaline Phosphatase 66 (38-126) U/L Troponin I (0.000-0.034) ng/mL NT-Pro-B Natriuret Pep 14498 pg/mL Total Protein 5.8 L (6.3-8.2) g/dL Albumin 3.5 (3.5-5.0) g/dL Influenza Type A (PCR) (Not Detectd) Influenza Type B (PCR) (Not Detectd) RSV (PCR) (Not Detectd) SARS-CoV-2 (PCR) (Not Detectd) 07/12/23 07/12/23 07/12/23 Range/Units 15:06 15:06 15:06 WBC (3.8-10.6) k/uL RBC (4.30-5.90) m/uL Hgb (13.0-17.5) gm/dL Hct (39.0-53.0) % MCV (80.0-100.0) fL MCH (25.0-35.0) pg MCHC (31.0-37.0) g/dL RDW (11.5-15.5) % Plt Count (150-450) k/uL MPV Neutrophils % % Lymphocytes % % Monocytes % % Eosinophils % % Basophils % % Neutrophils # (1.3-7.7) k/uL Lymphocytes # (1.0-4.8) k/uL Monocytes # (0-1.0) k/uL Eosinophils # (0-0.7) k/uL Basophils # (0-0.2) k/uL Hypochromasia Macrocytosis PT (10.0-12.5) sec INR (<1.2) APTT (22.0-30.0) sec Sodium (137-145) mmol/L Potassium (3.5-5.1) mmol/L Chloride (98-107) mmol/L Carbon Dioxide (22-30) mmol/L Anion Gap mmol/L BUN (9-20) mg/dL Creatinine (0.66-1.25) mg/dL Est GFR (CKD-EPI)AfAm (>60 ml/min/1.73 sqM) Est GFR (CKD-EPI)NonAf (>60 ml/min/1.73 sqM) Glucose (74-99) mg/dL Plasma Lactic Acid Pavan 2.2 H* (0.7-2.0) mmol/L Calcium (8.4-10.2) mg/dL Total Bilirubin (0.2-1.3) mg/dL AST (17-59) U/L ALT (4-49) U/L Alkaline Phosphatase (38-126) U/L Troponin I 0.128 H* (0.000-0.034) ng/mL NT-Pro-B Natriuret Pep pg/mL Total Protein (6.3-8.2) g/dL Albumin (3.5-5.0) g/dL Influenza Type A (PCR) Not Detected (Not Detectd) Influenza Type B (PCR) Not Detected (Not Detectd) RSV (PCR) Not Detected (Not Detectd) SARS-CoV-2 (PCR) Not Detected (Not Detectd) Disposition Clinical Impression: Congestive heart failure Disposition: ADMITTED IP TO THIS HOSP Condition: Serious Is patient prescribed a controlled substance at d/c from ED?: No
[2023-07-12 16:09] LABS: AST 43 U/L (17-59); Alkaline Phosphatase 66 U/L (38-126); Potassium 5.2 mmol/L (3.5-5.1)
[2023-07-12] MEDS ORDERED: NITROGLYCERIN SL TABS 0.4 MG TAB SUBLINGUAL PRN (16:21)
[2023-07-12 16:29] LABS: NT-Pro-B-Type Natriuretic Pept 39600 pg/mL
[2023-07-12] MEDS ORDERED: FUROSEMIDE 40 MG TAB PO SCH (17:30)
[2023-07-12] MEDS: HEPARIN SOD,PORK IN 0.45% NACL 25,000 UNIT in 0.45% NACL 1 250ML.BAG IV SCH (17:32)
[2023-07-12] MEDS ORDERED: SODIUM CHLORIDE 0.9% 500 ML 500 ML IV ONE (17:35)
[2023-07-12] MEDS: METOPROLOL TARTRATE 50 MG TAB PO SCH (20:15)
[2023-07-13] MEDS: PANTOPRAZOLE 40 MG TABLET PO SCH (06:20)
[2023-07-13 08:21] LABS: Basophils % (A) 0 %; Eosinophils # (A) 0.1 k/uL (0-0.7); Eosinophils % (A) 1 %; HGB 13.1 gm/dL (13.0-17.5); Hypochromasia Slight; Lymphocytes # (A) 0.9 k/uL (1.0-4.8); Lymphocytes % (A) 13 %; MCHC 31.9 g/dL (31.0-37.0); MCV 100.3 fL (80.0-100.0); Macrocytosis Slight; Mean Platelet Volume 9.5; Monocytes # (A) 0.5 k/uL (0-1.0); Monocytes % (A) 7 %; Neutrophils # (A) 5.3 k/uL (1.3-7.7); Neutrophils % (A) 75 %; Platelet Count 141 k/uL (150-450); RBC 4.09 m/uL (4.30-5.90); WBC 7.1 k/uL (3.8-10.6)
[2023-07-13 08:35] LABS: INR 1.2 (<1.2); Prothrombin Time 12.6 sec (10.0-12.5)
[2023-07-13] MEDS ORDERED: NON FORMULARY DRUG (Saw Palmetto [Saw Palmetto] 500 MG Capsule) PO SCH (09:00)
[2023-07-13] MEDS ORDERED: DAPAGLIFLOZIN PROPANEDIOL 10 MG TABLET PO SCH (09:00)
[2023-07-13] MEDS: METOPROLOL TARTRATE 50 MG TAB PO SCH ×4 (09:00→20:13)
[2023-07-13] MEDS ORDERED: ASPIRIN 325 MG TAB PO SCH (09:00)
[2023-07-13] MEDS: POTASSIUM CHLORIDE ER 20 MEQ TAB.ER PO SCH (09:19)
[2023-07-13] MEDS: ISOSORBIDE MONONITRATE ER 30 MG TAB.ER.24H PO SCH (09:19)
[2023-07-13] MEDS: VIT A,C & E-LUTEIN-MINERALS 1 EACH TAB PO SCH (09:19)
[2023-07-13] MEDS: ASPIRIN 81 MG PO SCH (09:19)
[2023-07-13] MEDS: FUROSEMIDE 10 MG/ML 4 ML VIAL IV SCH (09:20)
[2023-07-13] MEDS: CLOPIDOGREL 75 MG TAB PO SCH (09:20)
[2023-07-13] MEDS: ATORVASTATIN 40 MG TAB PO SCH (09:20)
[2023-07-13 10:01] LABS: ALT 30 U/L (4-49); AST 26 U/L (17-59); African American GFR (CKD) 46 (>60 ml/min/1.73 sqM); Alkaline Phosphatase 69 U/L (38-126); Anion Gap 6 mmol/L; Blood Urea Nitrogen 33 mg/dL (9-20); Calcium 9.5 mg/dL (8.4-10.2); Carbon Dioxide 27 mmol/L (22-30); Chloride 108 mmol/L (98-107); Glucose 72 mg/dL (74-99); Non-African American GFR(CKD) 40 (>60 ml/min/1.73 sqM); Potassium 4.6 mmol/L (3.5-5.1); Sodium 141 mmol/L (137-145); Total Bilirubin 0.9 mg/dL (0.2-1.3); Total Protein 5.2 g/dL (6.3-8.2)
[2023-07-13] MEDS: DIGOXIN 125 MCG TAB PO SCH (10:19)
[2023-07-13] MEDS: CHOLECALCIFEROL 25 MCG (1000 IU) TABLET PO SCH (10:19)
[2023-07-13 11:20] VITALS: BMI 16.9
[2023-07-13] MEDS: HYDROCORTISONE SUPPOSITORY 25 MG SUPP RECTAL SCH ×2 (11:37→20:07)
[2023-07-13] MEDS: SENNOSIDES-DOCUSATE SODIUM 1 EACH TAB PO SCH ×2 (11:37→20:07)
--- NOTE | 2023-07-13 12:02 | P.CRDCN ---
History of Present Illness Consult date: 07/13/23 Reason for Consult (text): NSTEMI, Ischemic cardiomyopathy History of present illness: History of present illness: This is a 77-year-old male patient of Dr. MICHELLE Ly with past medical history of chronic persistent atrial fibrillation on Eliquis, ischemic cardiomyopathy with prior anterior [place] in the with plain balloon angioplasty, status post AICD, stenting with shockwave lithotripsy in August 2022, PAD. We have been asked to evaluate the patient for non-ST elevated [place] and ischemic cardiomyopathy. History is obtained between the patient and his . Patient has had shortness of breath with minimal activity along with weakness and weight loss. He denies having any lower extremity edema. Patient's states that he is cold all the time. No signs of bleeding. Patient has been started on a heparin drip. Patient has had rate control issues this morning with hypotension. EKG atrial fibrillation with PVCs Chest x-ray: Cardiomegaly and trace pleural effusion seen in the lateral view. Suspect sequela of mild CHF. No pulmonary edema or annette pulmonary vascular congestion seen. WBC 7.1, hemoglobin 13.1, platelet count 141. INR 1.2. Sodium 141, potassium 4.6, BUN 33 creatinine 1.62 up from 1.35 yesterday. Liver function test are normal. Troponins 0.128, 0.157, 0.172. Influenza A, influenza B, COVID-19, RSV not detected. Home cardiac medications: Eliquis 5 mg twice daily, atorvastatin 40 mg daily, Plavix 75 mg daily, Farxiga 10 mg daily, Lasix 40 mg daily, Imdur 30 mg daily, lisinopril 1.25 mg daily, Lopressor 100 mg 3 times daily, potassium chloride 20 mill equivalents daily. Cardiac catheterization performed 10/03/2022 revealed LAD totally occluded, diagonal branch which was stented with a heavily calcified vessel addressed with shockwave lithotripsy and noncompliant balloon and stent with now restenosis of 80%. Echocardiogram performed 08/08/2021 revealed EF less than 20%, borderline concentric left ventricular hypertrophy, mild aortic regurgitation, moderate to severe mitral regurgitation, moderate to severe tricuspid regurgitation, mild pulmonary hypertension. Review Of Systems: At the time of my evaluation: Constitutional: No fever, no chills. No weakness, fatigue or lethargy. EENT: No headache. No dizziness. Lungs: No shortness of breath, cough, no sputum production. No wheezing. Cardiovascular: No chest pain, no lower extremity edema. No palpitations. No paroxysmal nocturnal dyspnea. No orthopnea. No lightheadedness or dizziness. No syncopal episodes. Abdominal: No abdominal pain. No nausea, vomiting. No diarrhea. No constipation. No bloody or tarry stools. Genitourinary: No dysuria.. No urinary retention. Musculoskeletal: No myalgias. No muscle weakness, no frequent falls. No back pain. No neck pain. Integumentary: No wounds. No rash. No unusual bruising. Neurologic: No aphasia. No facial droop. No change in mentation. No head injury. No headache. Physical examination: Gen: This is a 77-year-old male resting in bed and appears to be in no acute distress. VS: reviewed heart rate is in the 90s, blood pressure 97/54. HEENT: Head is atraumatic, normocephalic. Pupils equal, round. Sclerae is anicteric. NECK: Supple. No JVD. LUNGS: Clear to auscultation. No wheezes or rhonchi. No intercostal retractions. HEART: Regular rate and rhythm. 2/6 systolic ejection murmur at the left sternal border murmur. ABDOMEN: Soft No tenderness. EXTREMITIES: No pedal edema. No calf tenderness. NEUROLOGICAL: Patient is awake, alert and oriented x3. Assessment: Elevated troponins, flat presentation, type II [place] Acute kidney injury Thrombocytopenia Chronic persistent atrial fibrillation Ischemic cardiomyopathy status post AICD Plan: Continue patient on heparin drip for a total of 48 hours Resume patient's home cardiac medications Start patient on digoxin 125 mcg daily for 2 days Decrease frequency of IV Lasix to 40 mg daily Start aspirin 81 mg daily and continue Plavix Discontinue lisinopril Obtain 2-D echocardiogram and Doppler study to assess cardiac structure and function Further recommendations to follow based upon clinical course Thank you kindly for this consultation. Nurse practitioner note has been reviewed, I agree with documented findings and plan of care. Patient was seen and examined. Past Medical History Past Medical History: Atrial Fibrillation, CVA/TIA, Eye Disorder, Hearing Di sorder / Deafness, Hyperlipidemia, Myocardial Infarction ([place]), Prostate Disorder Additional Past Medical History / Comment(s): stroke-facial and left hand weakness, constipation, [place] in 1990. [place]. RT MAC. DEG. cataracts, shots in the eye. retina issues. Last Myocardial Infarction Date:: 1990 History of Any Multi-Drug Resistant Organisms: None Reported Past Surgical History: AICD, Heart Catheterization With Stent, Orthopedic Surgery Additional Past Surgical History / Comment(s): left hip surgery,. COLONOSCOPY Past Anesthesia/Blood Transfusion Reactions: No Reported Reaction Date of Last Stent Placement:: 1990 Type of Cardiac Device: AICD Device Placement Date:: 2009 Past Psychological History: No Psychological Hx Reported Smoking Status: Former smoker Past Alcohol Use History: None Reported Additional Past Alcohol Use History / Comment(s): pt stats he no longer smokes. Past Drug Use History: None Reported - Past Family History Mother Family Medical History: No Reported History Medications and Allergies Home Medications Medication Instructions Recorded Confirmed Type Atorvastatin [Lipitor] 40 mg PO DAILY 07/17/16 07/12/23 History Lansoprazole 30 mg PO DAILY 07/17/16 07/12/23 History Cholecalciferol [Vitamin D3 (25 25 mcg PO DAILY 08/06/21 07/12/23 History Mcg = 1000 Iu)] Saw Jensen 500 mg PO DAILY 08/11/22 07/12/23 History Albuterol Inhaler [Ventolin Hfa 2 puff INHALATION RT-Q4H PRN 08/17/22 07/12/23 History Inhaler] Apixaban [Eliquis] 5 mg PO BID #60 tab 08/31/22 07/12/23 Rx Clopidogrel [Plavix] 75 mg PO DAILY #30 tab 08/31/22 07/12/23 Rx Dapagliflozin Propanediol [Farxiga] 10 mg PO DAILY #30 tab 08/31/22 07/12/23 Rx Furosemide [Lasix] 40 mg PO DAILY #30 tablet 08/31/22 07/12/23 Rx Potassium Chloride ER [K-Dur 20] 20 meq PO DAILY #30 tab 08/31/22 07/12/23 Rx Isosorbide Mononitrate ER [Imdur] 30 mg PO DAILY 07/12/23 07/12/23 History Metoprolol Tartrate [Lopressor] 100 mg PO TID@0900,1600,2100 07/12/23 07/12/23 History Vit C/E/Zn/Coppr/Lutein/Zeaxan 1 cap PO DAILY 07/12/23 07/12/23 History [Preservision Areds 2 Softgel] lisinopriL 1.25 mg PO DAILY 07/12/23 07/12/23 History Allergies Allergy/AdvReac Type Severity Reaction Status Date / Time No Known Allergies Allergy Verified 07/12/23 15:26 Physical Exam Vitals: Vital Signs Temp Pulse Pulse Resp BP BP Pulse Ox 07/13/23 04:00 113 H 18 97/54 94 L 07/13/23 00:00 72 18 102/65 91 L 07/12/23 20:00 98.3 F 57 L 18 87/56 96 07/12/23 19:06 98.2 F 66 18 98/50 94 L 07/12/23 18:01 107 H 18 95/64 99 07/12/23 17:08 96 18 83/39 99 07/12/23 14:02 97.6 F 103 H 18 104/54 100 Intake and Output 07/12/23 07/13/23 07/13/23 22:59 06:59 14:59 Intake Total 42.412 Balance 42.412 Intake: Intake, IV Titration 42.412 Amount Heparin Sod,Pork in 0.45% 42.412 NaCl 25,000 unit In 0.45 % NaCl 1 250ml.bag @ 12 UNITS/KG/HR 6.804 mls/hr IV .Q24H [facility] Rx#: [id number] Other: Voiding Method Bedside Commode Bedside Commode # Voids 1 1 Weight 56.699 kg 53.6 kg Results 07/13/23 07:14 07/13/23 07:14 Cardiac Enzymes 07/12/23 07/12/23 07/12/23 Range/Units 15:06 15:06 16:42 AST 43 (17-59) U/L Troponin I 0.128 H* 0.157 H* (0.000-0.034) ng/mL 07/12/23 Range/Units 19:01 AST (17-59) U/L Troponin I 0.172 H* (0.000-0.034) ng/mL Coagulation 07/12/23 07/12/23 Range/Units 15:06 22:34 PT 13.2 H (10.0-12.5) sec APTT 26.7 94.8 H (22.0-30.0) sec CBC 07/12/23 Range/Units 15:06 WBC 8.9 (3.8-10.6) k/uL RBC 4.22 L (4.30-5.90) m/uL Hgb 13.6 (13.0-17.5) gm/dL Hct 41.9 (39.0-53.0) % Plt Count 150 (150-450) k/uL Comprehensive Metabolic Panel 07/12/23 Range/Units 15:06 Sodium 140 (137-145) mmol/L Potassium 5.2 H (3.5-5.1) mmol/L Chloride 107 (98-107) mmol/L Carbon Dioxide 25 (22-30) mmol/L BUN 35 H (9-20) mg/dL Creatinine 1.35 H (0.66-1.25) mg/dL Glucose 109 H (74-99) mg/dL Calcium 10.2 (8.4-10.2) mg/dL AST 43 (17-59) U/L ALT 38 (4-49) U/L Alkaline Phosphatase 66 (38-126) U/L Total Protein 5.8 L (6.3-8.2) g/dL Albumin 3.5 (3.5-5.0) g/dL Current Medications Generic Name Dose Route Start Last Admin Trade Name Freq PRN Reason Stop Dose Admin Albuterol Sulfate 2.5 mg 07/12/23 18:21 Albuterol Nebulized 2.5 Mg/3 Ml INHALATION RT-Q4H PRN Dyspnea Aspirin 325 mg 07/13/23 09:00 Aspirin 325 Mg Tab PO DAILY [facility] Atorvastatin Calcium 40 mg 07/13/23 09:00 Atorvastatin 40 Mg Tab PO DAILY [facility] Cholecalciferol 25 mcg 07/13/23 09:00 Cholecalciferol 25 Mcg (1000 Iu) Tablet PO DAILY [facility] Clopidogrel Bisulfate 75 mg 07/13/23 09:00 Clopidogrel 75 Mg Tab PO DAILY [facility] Dapagliflozin 10 mg 07/13/23 09:00 Dapagliflozin Propanediol 10 Mg Tablet PO DAILY [facility] Furosemide 40 mg 07/12/23 17:30 07/12/23 19:08 Furosemide 40 Mg Tab PO 40 mg DAILY MANOJ Administration Heparin Sodium (Porcine) 0 unit 07/12/23 16:00 Heparin Sodium 1,000 Un/Ml (10ml Vl) IV PER PROTOCOL PRN Low PTT Protocol Heparin Sodium/Sodium Chloride 250 mls @ 6.804 mls/hr 07/12/23 16:15 07/12/23 23:46 25,000 unit/ Sodium Chloride IV 10 units/kg/hr .Q24H [facility] 5.67 mls/hr Titration Protocol 12 UNITS/KG/HR Isosorbide Mononitrate 30 mg 07/13/23 09:00 Isosorbide Mononitrate Er 30 Mg Tab.Er.24h PO DAILY [facility] Lisinopril 1.25 mg 07/13/23 09:00 Lisinopril 2.5 Mg Tab PO DAILY [facility] Metoprolol Tartrate 100 mg 07/12/23 21:00 07/12/23 20:15 Metoprolol Tartrate 50 Mg Tab PO Not Given TID@0900,1600,2100 [facility] Multivitamins/Minerals 1 each 07/13/23 09:00 Vit A,C & S-Khzbcy-Hdonclno 1 Each Tab PO DAILY [facility] Nitroglycerin 0.4 mg 07/12/23 16:21 Nitroglycerin Sl Tabs 0.4 Mg Tab SUBLINGUAL Q5M PRN Chest Pain Pantoprazole Sodium 40 mg 07/13/23 07:30 07/13/23 06:20 Pantoprazole 40 Mg Tablet PO 40 mg [id number] [facility] Administration Potassium Chloride 20 meq 07/13/23 09:00 Potassium Chloride Er 20 Meq Tab.Er PO DAILY [facility] Intake and Output 07/12/23 07/13/23 07/13/23 22:59 06:59 14:59 Intake Total 42.412 Balance 42.412 Intake: Intake, IV Titration 42.412 Amount Heparin Sod,Pork in 0.45% 42.412 NaCl 25,000 unit In 0.45 % NaCl 1 250ml.bag @ 12 UNITS/KG/HR 6.804 mls/hr IV .Q24H [facility] Rx#: [id number] Other: Voiding Method Bedside Commode Bedside Commode # Voids 1 1 Weight 56.699 kg 53.6 kg 07/12/23 15:06 07/12/23 15:06
--- NOTE | 2023-07-13 12:15 | CA ---
Transthoracic Echo Report Name: Hola Duncan Age: 77 Gender: M : 1945 Exam Date: 07/13/2023 10:25 Exam Location: [facility] Ht (in): 70 Wt (lb): 118 Ordering Physician: Arabella Baxter Attending/Referring Phys: [id number], Sahil Detective Sergeant Chace Bettencourt Procedure CPT: Indications: LVF Cardiac Hx: Technical Quality: Fair Contrast 1: Total Dose (mL): Contrast 2: Total Dose (mL): MEASUREMENTS (Male / Female) Normal Values 2D ECHO LV Diastolic Diameter PLAX 7.3 cm 4.2 - 5.9 / 3.9 - 5.3 cm LV Systolic Diameter PLAX 6.7 cm IVS Diastolic Thickness 0.6 cm 0.6 - 1.0 / 0.6 - 0.9 cm LVPW Diastolic Thickness 1.0 cm 0.6 - 1.0 / 0.6 - 0.9 cm LV Relative Wall Thickness 0.2 RV Internal Dim ED PLAX 3.1 cm LVOT Diameter 2.3 cm Aortic Root Diameter 3.1 cm LA Systolic Diameter LX 3.9 cm 3.0 - 4.0 / 2.7 - 3.8 cm LV Diastolic Volume MOD BP 210.5 cm??? 67 - 155 / 56 - 104 cm??? LV Systolic Volume MOD BP 192.2 cm??? / 19 - 49 cm??? LV Ejection Fraction MOD BP 8.7 % >= 55 % LV Cardiac Index MOD BP 1322.9 cm???/min???m??? LV Diastolic Volume MOD 4C 211.7 cm??? LV Systolic Volume MOD 4C 189.8 cm??? LV Ejection Fraction MOD 4C 10.4 % LV Cardiac Index MOD 4C 1580.5 cm???/min???m??? LV Diastolic Length 4C 8.6 cm LV Systolic Length 4C 8.3 cm LV Diastolic Volume MOD 2C 199.6 cm??? LV Systolic Volume MOD 2C 190.3 cm??? LV Ejection Fraction MOD 2C 4.7 % LV Cardiac Index MOD 2C 675.1 cm???/min???m??? LV Diastolic Length 2C 8.1 cm LV Systolic Length 2C 8.1 cm LA Volume 121.9 cm??? 18 - 58 / 22 - 52 cm??? LA Volume Index 75.8 cm???/m??? 16 - 28 cm???/m??? Ascending Aorta Diameter 2.9 cm M-MODE LV Diastolic Diameter MM 7.4 cm 4.2 - 5.9 / 3.9 - 5.3 cm IVS Diastolic Thickness MM 0.7 cm 0.6 - 1.0 / 0.6 - 0.9 cm LVPW Diastolic Thickness MM 0.9 cm 0.6 - 1.0 / 0.6 - 0.9 cm LV Relative Wall Thickness MM 0.2 0.24 - 0.42 / 0.22 - 0.42 LV Mass Index MM 161.0 g/m??? 49 - 115 / 43 - 95 g/m??? DOPPLER AV Peak Velocity 76.0 cm/s AV Peak Gradient 2.3 mmHg AI Peak Velocity 308.4 cm/s AI Peak Gradient 38.0 mmHg AI Pressure Half Time 506.2 ms LVOT Peak Velocity 46.8 cm/s LVOT Peak Gradient 0.9 mmHg LVOT Velocity Time Integral 6.2 cm LVOT Stroke Volume 26.7 cm??? LVOT Stroke Volume Index 16.0 ml/m??? LVOT Cardiac Index 1924.4 cm???/min???m??? AV Area Cont Eq pk 2.6 cm??? MR Peak Velocity 342.1 cm/s MR Peak Gradient 46.8 mmHg TR Peak Velocity 323.6 cm/s TR Peak Gradient 41.9 mmHg Right Ventricular Systolic Press 46.9 mmHg PV Peak Velocity 86.5 cm/s PV Peak Gradient 3.0 mmHg FINDINGS Left Ventricle Severe left ventricular dilatation. Normal wall thickness. Left ventricular ejection fraction is estimated at 10-15 %. Right Ventricle Normal right ventricular size. RVSP= 47mmHg.catheter/pacemaker wire in the right ventricular cavity. Right Atrium Moderate right atrial dilatation. RA area= 23cm2 Left Atrium Severe left atrial dilatation. LA volume index= 73ml/m2 Mitral Valve Structurally normal mitral valve. Severe MR. Aortic Valve Trileaflet aortic valve. Mild AI. Tricuspid Valve Structurally normal tricuspid valve. Pulmonic Valve Structurally normal pulmonic valve. Moderate PI. Pericardium Not well visualized. Aorta Normal size aortic root and proximal ascending aorta. CONCLUSIONS Severely dilated LV with severe LV dysfunction Biatrial enlargement Moderate pulmonary hypertension Moderate mitral regurgitation Previewed by: Dr. Chris Cabrera MD (Electronically Signed) Final Date: 13 July 2023 12:14
[2023-07-13] MEDS: ALBUTEROL NEBULIZED 2.5 MG/3 ML INHALATION PRN (12:24)
[2023-07-13 16:19] LABS: Chol/HDL Ratio 3.59 Ratio; LDL Cholesterol,Calculated 78.7 mg/dL (0.0-131.0); VLDL Calculation 15.14 mg/dL (5.00-40.00)
[2023-07-14] MEDS: HEPARIN SOD,PORK IN 0.45% NACL 25,000 UNIT in 0.45% NACL 1 250ML.BAG IV SCH ×2 (04:26→15:44)
[2023-07-14] MEDS: PANTOPRAZOLE 40 MG TABLET PO SCH (04:26)
[2023-07-14] MEDS: CLOPIDOGREL 75 MG TAB PO SCH (08:26)
[2023-07-14] MEDS: POTASSIUM CHLORIDE ER 20 MEQ TAB.ER PO SCH (08:26)
[2023-07-14] MEDS: VIT A,C & E-LUTEIN-MINERALS 1 EACH TAB PO SCH (08:26)
[2023-07-14] MEDS: ATORVASTATIN 40 MG TAB PO SCH (08:26)
[2023-07-14] MEDS: DIGOXIN 125 MCG TAB PO SCH (08:27)
[2023-07-14] MEDS: METOPROLOL TARTRATE 50 MG TAB PO SCH ×2 (08:27→19:30)
[2023-07-14] MEDS: SENNOSIDES-DOCUSATE SODIUM 1 EACH TAB PO SCH ×2 (08:27→19:30)
[2023-07-14] MEDS: CHOLECALCIFEROL 25 MCG (1000 IU) TABLET PO SCH (08:27)
[2023-07-14] MEDS: HYDROCORTISONE SUPPOSITORY 25 MG SUPP RECTAL SCH ×2 (08:28→19:31)
[2023-07-14] MEDS: ISOSORBIDE MONONITRATE ER 30 MG TAB.ER.24H PO SCH (08:31)
[2023-07-14] MEDS: FUROSEMIDE 10 MG/ML 4 ML VIAL IV SCH (10:20)
--- NOTE | 2023-07-14 14:01 | P.HPIM ---
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 Patient underwent Left heart Catherization that showed total oclusion of the mif LAD prior to it there was a diagonal branch with eccentric lesion for which he underwent shock wave to LAD and PCI of the diagonal branch with stent placement, was sent home on Eliquis and same cardiac medications and patient has been outside the hospital for the last 7 months,. Of note patient did have an echocardiogram back in July 2021 that showed ejection fraction of 20% with severe mitral regurgitation and tricuspid regurgitation with pulmonary hypertension, patient was doing fine up until last few days when he developed to have an increased shortness with history of increased weakness and generalized fatigue and not able to activities of daily living, his ended up bringing her to the emergency department for evaluation he was found to be in atrial fibrillation with rapid ventricular response, he was taken off his colchicine placed on heparin drip, he was also placed on Cardizem drip along with his metoprolol, he was seen in consultation by cardiology and he was started on digoxin to try to help with rate control, he was taken off lisinopril as well, patient will be kept in the hospital for further evaluation and treatment his troponin was slightly elevated suggestive of type GA due to atrial fibrillation with rapid ventricular response, chest x-ray showed evidence of small bilateral pleural effusion with low-grade vascular congestion, EKG showed atrial fibrillation with rapid ventricular response, laboratory evaluation were reviewed, his troponin was slightly elevated suggestive of type GA. REVIEW OF SYSTEMS Constitutional: No fever, no chills, no night sweats. No weight change. No weakness, fatigue or lethargy. No daytime sleepiness. EENT: No headache. No blurred vision or double vision, no loss of vision. No loss of Hearing, no ringing in the ears, no dizziness. No nasal drainage or congestion. No epistaxis. No sore throat. Lungs: Reports shortness of breathimproved, occasional cough, no sputum production. No wheezing. Cardiovascular: No chest pain, no lower extremity edema. Reports palpitations. No paroxysmal nocturnal dyspnea. No orthopnea. No lightheadedness or dizziness. No syncopal episodes. Abdominal: Reports no abdominal discomfort. No nausea, vomiting. No diarrhea. No constipation. No bloody or tarry stools. No loss of appetite. Genitourinary: No dysuria, increased frequency, urgency. No urinary retention. Musculoskeletal: No myalgias. No muscle weakness, no gait dysfunction, no frequent falls. No back pain. No neck pain. Integumentary: No wounds, no lesions. No rash or pruritus. No unusual bruising. No change in hair or nails. Neurologic: No aphasia. No facial droop. No change in mentation. No head injury. No headache. No paralysis. No paresthesia. Psychiatric: No depression. No anxiety. No mood swings. Endocrine: No abnormal blood sugars. No weight change. MEDICAL HISTORY Coronary artery disease status post stent Hypertension Hyperlipidemia Gastroesophageal reflux disease Chronic anemia CVA Benign prostatic hypertrophy Persistent atrial fibrillation Cardiomyopathy status post AICD. SURGICAL HISTORY AICD 2009 Cardiac catheterization and stent placement 1989 Colonoscopy . SOCIAL HISTORY History of smoking. No alcohol use, no marijuana use, patient lives at home with his . FAMILY HISTORY Father at age 55 from COPD and cirrhosis. Mother at age 90 from old age. Patient has 2 brothers one from a thermistor disease and fell and broke his hip the other is 83 years old with coronary artery disease and PCI. Patient has one sister alive with COPD. One son is alive with CHF. Patient has 2 daughters have one at age 50 from heart failure and the other one at age 27 from heart failure. PHYSICAL EXAMINATION Gen: This is a 77-year-old male, laying down in bed in minimal respiratory distress HEENT: Head is atraumatic, normocephalic. Pupils equal, round. Sclerae is anicteric. NECK: Supple. No JVD. No lymphadenopathy. No thyromegaly. LUNGS: Decreased breath sounds at bases, few rhonchi, no expiratory wheezes, no chest wall tenderness, no intercostal retractions HEART: First heart sound is depressed, second heart sound is normal, irregularly irregular, there is 2/6 systolic systolic ejection murmur at the left sternal border there is an AICD., ABDOMEN: Soft. Bowel sounds are present. No masses. No tenderness. EXTREMITIES: there is no edema, no calf tenderness, dorsalis pedis +1 bilaterally. NEUROLOGICAL: Patient is awake, alert and oriented x3. Cranial nerves 2 through 12 are grossly intact, muscle power 5 out of 5 in upper and lower extremities bilaterally. ASSESSMENT AND PLAN 1. Unspecified atrial fibrillation with RVR. continue metoprolol 50 mg orally twice every day, continue patient on heparin drip, he was taken off Eliquis for now 2. type II GA due to A. fib with RVR. Continue patient on metoprolo 50 mg orally twice every day, continue patient on Clopidogrel 75 mg once every day, as well as atorvastatin 40 mg once every day. 3. History of coronary artery disease status post stent. Continue patient on Clopidogrel 75 mg po daily , Imdur 30 mg daily, Lopressor 50 mg twice daily. 4. Hypertension and hypertensive cardiovascular disease Continue patient on metoprolol 50 mg orally twice every day 5. Hyperlipidemia. Continue atorvastatin 40 mg at bedtime. 6. Chronic anemia. Continue ferrous sulfate 325 mg daily. 7. History of CVA. Continue patient on Clopidogrel 75 mg orally daily , Lipitor 40 mg daily 8. Benign prostatic hypertrophy. Monitor for urinary retention.patient will have an appointment with Dr. Ward as an outpatient PSA is normal for his age. 9. Cardiomyopathy status post AICD. continue patient on metoprolol 50 mg orally twice every day, continue frusemide 40 mg IV push every day could not tolerate Entresto in the past 10. Gastroesophageal reflux disease and GI prophylaxis. Protonix. 40 mg orally once every day. 11. DVT prophylaxis. we will continue with heparin drip. 12. Admit to inpatient. Estimate length of stay 2 midnights. 13. Patient is full code Past Medical History Past Medical History: Atrial Fibrillation, CVA/TIA, Eye Disorder, Hearing Dis order / Deafness, Hyperlipidemia, Myocardial Infarction (GA), Prostate Disorder Additional Past Medical History / Comment(s): stroke-facial and left hand weakness, constipation, GA in 1990. APACHE. RT MAC. DEG. cataracts, shots in the eye. retina issues. Last Myocardial Infarction Date:: 1990 History of Any Multi-Drug Resistant Organisms: None Reported Past Surgical History: AICD, Heart Catheterization With Stent, Orthopedic Surgery Additional Past Surgical History / Comment(s): left hip surgery,. COLONOSCOPY Past Anesthesia/Blood Transfusion Reactions: No Reported Reaction Date of Last Stent Placement:: 1990 Type of Cardiac Device: AICD Device Placement Date:: 2009 Past Psychological History: No Psychological Hx Reported Smoking Status: Former smoker Past Alcohol Use History: None Reported Past Drug Use History: None Reported - Past Family History Mother Family Medical History: No Reported History Medications and Allergies Home Medications Medication Instructions Recorded Confirmed Type Atorvastatin [Lipitor] 40 mg PO DAILY 07/17/16 07/12/23 History Lansoprazole 30 mg PO DAILY 07/17/16 07/12/23 History Cholecalciferol [Vitamin D3 (25 25 mcg PO DAILY 08/06/21 07/12/23 History Mcg = 1000 Iu)] Saw Freeman 500 mg PO DAILY 08/11/22 07/12/23 History Albuterol Inhaler [Ventolin Hfa 2 puff INHALATION RT-Q4H PRN 08/17/22 07/12/23 History Inhaler] Apixaban [Eliquis] 5 mg PO BID #60 tab 08/31/22 07/12/23 Rx Clopidogrel [Plavix] 75 mg PO DAILY #30 tab 08/31/22 07/12/23 Rx Dapagliflozin Propanediol [Farxiga] 10 mg PO DAILY #30 tab 08/31/22 07/12/23 Rx Furosemide [Lasix] 40 mg PO DAILY #30 tablet 08/31/22 07/12/23 Rx Potassium Chloride ER [K-Dur 20] 20 meq PO DAILY #30 tab 08/31/22 07/12/23 Rx Isosorbide Mononitrate ER [Imdur] 30 mg PO DAILY 07/12/23 07/12/23 History Metoprolol Tartrate [Lopressor] 100 mg PO TID@0900,1600,2100 07/12/23 07/12/23 History Vit C/E/Zn/Coppr/Lutein/Zeaxan 1 cap PO DAILY 07/12/23 07/12/23 History [Preservision Areds 2 Softgel] lisinopriL 1.25 mg PO DAILY 07/12/23 07/12/23 History Allergies Allergy/AdvReac Type Severity Reaction Status Date / Time No Known Allergies Allergy Verified 07/12/23 15:26 Physical Exam Vitals: Vital Signs Temp Pulse Resp BP Pulse Ox 07/12/23 18:01 107 H 18 95/64 99 07/12/23 17:08 96 18 83/39 99 07/12/23 14:02 97.6 F 103 H 18 104/54 100 Intake and Output 07/12/23 07/12/23 07/12/23 06:59 14:59 22:59 Other: Weight 56.699 kg Results CBC & Chem 7: 07/13/23 07:14 07/13/23 07:14 Labs: Abnormal Lab Results - Last 24 Hours (Table) 07/12/23 07/12/23 07/12/23 Range/Units 15:06 15:06 15:06 RBC 4.22 L (4.30-5.90) m/uL Lymphocytes # 0.7 L (1.0-4.8) k/uL PT 13.2 H (10.0-12.5) sec INR 1.3 H (<1.2) Potassium 5.2 H (3.5-5.1) mmol/L BUN 35 H (9-20) mg/dL Creatinine 1.35 H (0.66-1.25) mg/dL Glucose 109 H (74-99) mg/dL Plasma Lactic Acid Pavan (0.7-2.0) mmol/L Troponin I (0.000-0.034) ng/mL Total Protein 5.8 L (6.3-8.2) g/dL 07/12/23 07/12/23 07/12/23 Range/Units 15:06 15:06 16:42 RBC (4.30-5.90) m/uL Lymphocytes # (1.0-4.8) k/uL PT (10.0-12.5) sec INR (<1.2) Potassium (3.5-5.1) mmol/L BUN (9-20) mg/dL Creatinine (0.66-1.25) mg/dL Glucose (74-99) mg/dL Plasma Lactic Acid Pavan 2.2 H* (0.7-2.0) mmol/L Troponin I 0.128 H* 0.157 H* (0.000-0.034) ng/mL Total Protein (6.3-8.2) g/dL
--- NOTE | 2023-07-14 14:06 | P.PN ---
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 Patient underwent Left heart Catherization that showed total oclusion of the mif LAD prior to it there was a diagonal branch with eccentric lesion for which he underwent shock wave to LAD and PCI of the diagonal branch with stent placement, was sent home on Eliquis and same cardiac medications and patient has been outside the hospital for the last 7 months,. Of note patient did have an echocardiogram back in July 2021 that showed ejection fraction of 20% with severe mitral regurgitation and tricuspid regurgitation with pulmonary hypertension, patient was doing fine up until last few days when he developed to have an increased shortness with history of increased weakness and generalized fatigue and not able to activities of daily living, his ended up bringing her to the emergency department for evaluation he was found to be in atrial fibrillation with rapid ventricular response, he was taken off his colchicine placed on heparin drip, he was also placed on Cardizem drip along with his metoprolol, he was seen in consultation by cardiology and he was started on digoxin to try to help with rate control, he was taken off lisinopril as well, patient will be kept in the hospital for further evaluation and treatment his troponin was slightly elevated suggestive of type SD due to atrial fibrillation with rapid ventricular response, chest x- ray showed evidence of small bilateral pleural effusion with low-grade vascular congestion, EKG showed atrial fibrillation with rapid ventricular response, laboratory evaluation were reviewed, his troponin was slightly elevated suggestive of type SD. 07/13: Patient is laying down in bed he appears to be somewhat short of breath, he continues to be on heparin drip, he was seen earlier by cardiology, he was s tarted on digoxin for the next few days, he would be maintained on heparin drip for another 24 hours, he has been maintained on Lasix 40 mg IV push every 24 hours, his metoprolol was decreased to 50 mg orally twice every day he was taken off GHISLIANE inhibitor, patient could not tolerate Entrestor and or Farxiga in the past, we will continue to monitor the patient very closely hip procedure week, he is not able to carry out activities of daily living, he lives at home with his , he does not move around much. He underwent echocardiogram that showed ejection fraction of 10-15% with severely dilated cardiomyopathy, and also he did appear to have a moderate. Hypertension with severe mitral regurgitation with bilateral atrial enlargement and mild aortic valve regurgitation he is pretty much end-stage cardiomyopathy at this point in time, he has an AICD in place and we will continue with the current treatment plan.. REVIEW OF SYSTEMS Constitutional: No fever, no chills, no night sweats. No weight change. No weakness, fatigue or lethargy. No daytime sleepiness. EENT: No headache. No blurred vision or double vision, no loss of vision. No loss of Hearing, no ringing in the ears, no dizziness. No nasal drainage or congestion. No epistaxis. No sore throat. Lungs: Reports shortness of breathimproved, occasional cough, no sputum production. No wheezing. Cardiovascular: No chest pain, no lower extremity edema. Reports palpitations. No paroxysmal nocturnal dyspnea. No orthopnea. No lightheadedness or dizziness. No syncopal episodes. Abdominal: Reports no abdominal discomfort. No nausea, vomiting. No diarrhea. No constipation. No bloody or tarry stools. No loss of appetite. Genitourinary: No dysuria, increased frequency, urgency. No urinary retention. Musculoskeletal: No myalgias. No muscle weakness, no gait dysfunction, no frequent falls. No back pain. No neck pain. Integumentary: No wounds, no lesions. No rash or pruritus. No unusual bruising. No change in hair or nails. Neurologic: No aphasia. No facial droop. No change in mentation. No head injury. No headache. No paralysis. No paresthesia. Psychiatric: No depression. No anxiety. No mood swings. Endocrine: No abnormal blood sugars. No weight change. PHYSICAL EXAMINATION Gen: This is a 77-year-old male, laying down in bed in minimal respiratory distress HEENT: Head is atraumatic, normocephalic. Pupils equal, round. Sclerae is an icteric. NECK: Supple. No JVD. No lymphadenopathy. No thyromegaly. LUNGS: Decreased breath sounds at bases, few rhonchi, no expiratory wheezes, no chest wall tenderness, no intercostal retractions HEART: First heart sound is depressed, second heart sound is normal, irregularly irregular, there is 2/6 systolic systolic ejection murmur at the left sternal border there is an AICD., ABDOMEN: Soft. Bowel sounds are present. No masses. No tenderness. EXTREMITIES: there is no edema, no calf tenderness, dorsalis pedis +1 bilaterally. NEUROLOGICAL: Patient is awake, alert and oriented x3. Cranial nerves 2 through 12 are grossly intact, muscle power 5 out of 5 in upper and lower extremities b ilaterally. ASSESSMENT AND PLAN 1. Unspecified atrial fibrillation with RVR. continue metoprolol 50 mg orally twice every day, continue patient on heparin drip, he was taken off Eliquis for now 2. type II SD due to A. fib with RVR. Continue patient on metoprolo 50 mg or ally twice every day, continue patient on Clopidogrel 75 mg once every day, as well as atorvastatin 40 mg once every day. 3. History of coronary artery disease status post stent. Continue patient on Clopidogrel 75 mg po daily , Imdur 30 mg daily, Lopressor 50 mg twice daily. 4. 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 Continue with the current medication for now, patient has been on heparin drip, he has been on metoprolol 50 mg twice every day, patient could not tolerate Entresto therefore he was placed on digoxin 125 g orally once every day. Continue patient on Lasix 40 mg IV push every 24 hours. 4. Hypertension and hypertensive cardiovascular disease Continue patient on metoprolol 50 mg orally twice every day 5. Hyperlipidemia. Continue atorvastatin 40 mg at bedtime. 6. Chronic anemia. Continue ferrous sulfate 325 mg daily. 7. History of CVA. Continue patient on Clopidogrel 75 mg orally daily , Lipitor 40 mg daily 8. Benign prostatic hypertrophy. Monitor for urinary retention.patient will have an appointment with Dr. Ward as an outpatient PSA is normal for his age. 9. Cardiomyopathy status post AICD. continue patient on metoprolol 50 mg orally twice every day, continue frusemide 40 mg IV push every day could not tolerate Entresto in the past 10. Gastroesophageal reflux disease and GI prophylaxis. Protonix. 40 mg orally once every day. 11. DVT prophylaxis. we will continue with heparin drip. 12. Prognosis is very guarded. Objective - Vital Signs Vital signs: Vital Signs Temp 97.4 F L 07/14/23 07:53 Pulse 117 H 07/14/23 11:35 Resp 19 07/14/23 11:35 BP 95/69 07/14/23 11:35 Pulse Ox 100 07/14/23 11:35 FiO2 Intake & Output 07/13/23 07/14/23 07/14/23 18:59 06:59 18:59 Intake Total 444 942.54 145.594 Output Total 200 Balance 444 942.54 -54.406 Weight 53.6 kg Intake: Intake, IV Titration 162.54 27.594 Amount Heparin Sod,Pork in 0.45% 162.54 27.594 NaCl 25,000 unit In 0.45 % NaCl 1 250ml.bag @ 12 UNITS/KG/HR 6.804 mls/hr IV .Q24H [facility] Rx#: [id number] Oral [id number] Output: Urine 200 Other: Voiding Method Bedside Commode Bedside Commode Bedside Commode # Voids 3 3 - Labs CBC & Chem 7: 07/13/23 07:14 07/13/23 07:14 Labs: Abnormal Lab Results - Last 24 Hours (Table) 07/13/23 07/14/23 Range/Units 07:14 08:00 APTT 43.8 H (22.0-30.0) sec HDL Cholesterol 36.20 L (40.00-60.00) mg/dL
[2023-07-14 15:47] LABS: African American GFR (CKD) 58 (>60 ml/min/1.73 sqM); Anion Gap 9 mmol/L; Blood Urea Nitrogen 27 mg/dL (9-20); Calcium 9.3 mg/dL (8.4-10.2); Carbon Dioxide 24 mmol/L (22-30); Chloride 106 mmol/L (98-107); Glucose 123 mg/dL (74-99); Non-African American GFR(CKD) 50 (>60 ml/min/1.73 sqM); Potassium 4.4 mmol/L (3.5-5.1); Sodium 139 mmol/L (137-145)
--- NOTE | 2023-07-14 20:26 | P.PN ---
Subjective Progress Note Date: 07/14/23 Progress note Echo showed severely dilated LV EF 10%, severe LV dilatation, moderate MR, creatinine 1.6 History of present illness: This is a 77-year-old male patient of Dr. MICHELLE Ly with past medical history of chronic persistent atrial fibrillation on Eliquis, ischemic cardiomyopathy with prior anterior GA in the with plain balloon angioplasty, status post AICD, stenting with shockwave lithotripsy in August 2022, PAD. We have been asked to evaluate the patient for non-ST elevated GA and ischemic cardiomyopathy. History is obtained between the patient and his . Patient has had shortness of breath with minimal activity along with weakness and weight loss. He denies having any lower extremity edema. Patient's states that he is cold all the time. No signs of bleeding. Patient has been started on a heparin drip. Patient has had rate control issues this morning with hypotension. EKG atrial fibrillation with PVCs Chest x-ray: Cardiomegaly and trace pleural effusion seen in the lateral view. Suspect sequela of mild CHF. No pulmonary edema or annette pulmonary vascular co ngestion seen. WBC 7.1, hemoglobin 13.1, platelet count 141. INR 1.2. Sodium 141, potassium 4.6, BUN 33 creatinine 1.62 up from 1.35 yesterday. Liver function test are normal. Troponins 0.128, 0.157, 0.172. Influenza A, influenza B, COVID-19, RSV not detected. Home cardiac medications: Eliquis 5 mg twice daily, atorvastatin 40 mg daily, Plavix 75 mg daily, Farxiga 10 mg daily, Lasix 40 mg daily, Imdur 30 mg daily, lisinopril 1.25 mg daily, Lopressor 100 mg 3 times daily, potassium chloride 20 mill equivalents daily. Cardiac catheterization performed 10/03/2022 revealed LAD totally occluded, diagonal branch which was stented with a heavily calcified vessel addressed with shockwave lithotripsy and noncompliant balloon and stent with now restenosis of 80%. Echocardiogram performed 08/08/2021 revealed EF less than 20%, borderline concentric left ventricular hypertrophy, mild aortic regurgitation, moderate to severe mitral regurgitation, moderate to severe tricuspid regurgitation, mild p ulmonary hypertension. Physical examination: Gen: This is a 77-year-old male resting in bed and appears to be in no acute distress. VS: reviewed heart rate is in the 90s, blood pressure 97/54. HEENT: Head is atraumatic, normocephalic. Pupils equal, round. Sclerae is anicteric. NECK: Supple. No JVD. LUNGS: Clear to auscultation. No wheezes or rhonchi. No intercostal retractions. HEART: Regular rate and rhythm. 2/6 systolic ejection murmur at the left sternal border murmur. ABDOMEN: Soft No tenderness. EXTREMITIES: No pedal edema. No calf tenderness. NEUROLOGICAL: Patient is awake, alert and oriented x3. Assessment: Elevated troponins, flat presentation, type II GA Acute kidney injury Thrombocytopenia Chronic persistent atrial fibrillation Ischemic cardiomyopathy status post AICD Plan: Continue IV heparin drip for next 24 hours. Discontinue tomorrow morning, and resume oral anticoagulation. Continue digoxin Continue Lasix 40 g IV daily Continue aspirin and Plavix. Discontinue lisinopril. Monitor kidney function. Monitor urine output Prognosis extremely guarded. Objective - Vital Signs Vital signs: Vital Signs Temp 97.4 F L 07/14/23 07:53 Pulse 129 H 07/14/23 15:09 Resp 21 07/14/23 15:09 BP 88/65 07/14/23 15:09 Pulse Ox 98 07/14/23 15:09 FiO2 Intake & Output 07/14/23 07/14/23 07/15/23 06:59 18:59 06:59 Intake Total 942.54 429.366 Output Total 200 Balance 942.54 229.366 Intake: Intake, IV Titration 162.54 71.366 Amount Heparin Sod,Pork in 0.45% 162.54 71.366 NaCl 25,000 unit In 0.45 % NaCl 1 250ml.bag @ 12 UNITS/KG/HR 6.804 mls/hr IV .Q24H [facility] Rx#: [id number] Oral 780 358 Output: Urine 200 Other: Voiding Method Bedside Commode Bedside Commode # Voids 3 - Labs CBC & Chem 7: 07/13/23 07:14 07/14/23 14:37 Labs: Abnormal Lab Results - Last 24 Hours (Table) 07/14/23 07/14/23 07/14/23 Range/Units 08:00 14:37 14:37 APTT 43.8 H 46.6 H (22.0-30.0) sec BUN 27 H (9-20) mg/dL Creatinine 1.35 H (0.66-1.25) mg/dL Glucose 123 H (74-99) mg/dL
[2023-07-14] MEDS: ACETAMINOPHEN TAB 325 MG TAB PO PRN (22:29)
[2023-07-15] MEDS: PANTOPRAZOLE 40 MG TABLET PO SCH (06:12)
--- NOTE | 2023-07-15 07:30 | XR ---
EXAMINATION TYPE: XR chest 1V DATE OF EXAM: 07/15/2023 COMPARISON: 08/19/2022 HISTORY: CHF TECHNIQUE: Single frontal view of the chest is obtained. FINDINGS: There is a ICD device unchanged in position There is moderate to marked cardiomegaly. The lungs are clear and there is no consolidative interstitial opacity. The pulmonary vasculature is not appear congested. There is no pneumothorax or large pleural effusion. IMPRESSION: Cardiomegaly with ICD device but no definite acute cardiopulmonary disease.
[2023-07-15] MEDS: HYDROCORTISONE SUPPOSITORY 25 MG SUPP RECTAL SCH ×2 (07:48→21:38)
[2023-07-15] MEDS: ASPIRIN 81 MG PO SCH (07:48)
[2023-07-15] MEDS: POTASSIUM CHLORIDE ER 20 MEQ TAB.ER PO SCH (07:49)
[2023-07-15] MEDS: ATORVASTATIN 40 MG TAB PO SCH (07:49)
[2023-07-15] MEDS: METOPROLOL TARTRATE 50 MG TAB PO SCH ×2 (07:49→21:38)
[2023-07-15] MEDS: CHOLECALCIFEROL 25 MCG (1000 IU) TABLET PO SCH (07:49)
[2023-07-15] MEDS: SENNOSIDES-DOCUSATE SODIUM 1 EACH TAB PO SCH ×2 (07:49→21:38)
[2023-07-15] MEDS: VIT A,C & E-LUTEIN-MINERALS 1 EACH TAB PO SCH (07:49)
[2023-07-15] MEDS: CLOPIDOGREL 75 MG TAB PO SCH (07:49)
[2023-07-15] MEDS: DIGOXIN 125 MCG TAB PO SCH (07:49)
[2023-07-15] MEDS: ISOSORBIDE MONONITRATE ER 30 MG TAB.ER.24H PO SCH (07:56)
[2023-07-15 08:08] LABS: Basophils % (A) 0 %; Eosinophils # (A) 0.1 k/uL (0-0.7); Eosinophils % (A) 2 %; HCT 39.2 % (39.0-53.0); HGB 12.7 gm/dL (13.0-17.5); Hypochromasia Slight; Lymphocytes % (A) 13 %; MCH 32.3 pg (25.0-35.0); MCHC 32.4 g/dL (31.0-37.0); MCV 99.8 fL (80.0-100.0); Macrocytosis Slight; Mean Platelet Volume 9.9; Monocytes # (A) 0.4 k/uL (0-1.0); Monocytes % (A) 6 %; Neutrophils # (A) 5.7 k/uL (1.3-7.7); Neutrophils % (A) 77 %; Platelet Count 130 k/uL (150-450); RBC 3.93 m/uL (4.30-5.90); WBC 7.5 k/uL (3.8-10.6)
[2023-07-15] MEDS: ALBUTEROL NEBULIZED 2.5 MG/3 ML INHALATION PRN ×2 (08:13→21:19)
--- NOTE | 2023-07-15 08:33 | P.PN ---
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 Patient underwent Left heart Catherization that showed total oclusion of the mif LAD prior to it there was a diagonal branch with eccentric lesion for which he underwent shock wave to LAD and PCI of the diagonal branch with stent placement, was sent home on Eliquis and same cardiac medications and patient has been outside the hospital for the last 7 months,. Of note patient did have an echocardiogram back in July 2021 that showed ejection fraction of 20% with severe mitral regurgitation and tricuspid regurgitation with pulmonary hypertension, patient was doing fine up until last few days when he developed to have an increased shortness with history of increased weakness and generalized fatigue and not able to activities of daily living, his ended up bringing her to the emergency department for evaluation he was found to be in atrial fibrillation with rapid ventricular response, he was taken off his colchicine placed on heparin drip, he was also placed on Cardizem drip along with his metoprolol, he was seen in consultation by cardiology and he was started on digoxin to try to help with rate control, he was taken off lisinopril as well, patient will be kept in the hospital for further evaluation and treatment his troponin was slightly elevated suggestive of type FL due to atrial fibrillation with rapid ventricular response, chest x- ray showed evidence of small bilateral pleural effusion with low-grade vascular congestion, EKG showed atrial fibrillation with rapid ventricular response, laboratory evaluation were reviewed, his troponin was slightly elevated suggestive of type FL. 07/13: Patient is laying down in bed he appears to be somewhat short of breath, he continues to be on heparin drip, he was seen earlier by cardiology, he was s tarted on digoxin for the next few days, he would be maintained on heparin drip for another 24 hours, he has been maintained on Lasix 40 mg IV push every 24 hours, his metoprolol was decreased to 50 mg orally twice every day he was taken off GHISLAINE inhibitor, patient could not tolerate Entrestor and or Farxiga in the past, we will continue to monitor the patient very closely hip procedure week, he is not able to carry out activities of daily living, he lives at home with his , he does not move around much. He underwent echocardiogram that showed ejection fraction of 10-15% with severely dilated cardiomyopathy, and also he did appear to have a moderate. Hypertension with severe mitral regurgitation with bilateral atrial enlargement and mild aortic valve regurgitation he is pretty much end-stage cardiomyopathy at this point in time, he has an AICD in place and we will continue with the current treatment plan.. 07/14: Patient is laying down in bed he continues to be about the same, he continues to be extremely, he appears to be short of breath with rest, he denies any chest pain at this time, he continues to have orthopnea, minimal PND, no edema, generalized weakness, continues to be on current medication including heparin drip, aspirin, Plavix, metoprolol 50 mg twice every day and Lasix 40 mg IV push every 24 hours, he continues to be on digoxin 125 g orally once every day, we will continue to follow up with the patient very closely echocardiogram showed fairly severe dilated cardiomyopathy with ejection fraction of 10-15% with moderate pulmonary hypertension and bilateral atrial enlargement this is very much end-stage cardiomyopathy. REVIEW OF SYSTEMS Constitutional: No fever, no chills, no night sweats. No weight change. No weakness, fatigue or lethargy. No daytime sleepiness. EENT: No headache. No blurred vision or double vision, no loss of vision. No loss of Hearing, no ringing in the ears, no dizziness. No nasal drainage or congestion. No epistaxis. No sore throat. Lungs: Reports shortness of breathimproved, occasional cough, no sputum production. No wheezing. Cardiovascular: No chest pain, no lower extremity edema. Reports palpitations. No paroxysmal nocturnal dyspnea. No orthopnea. No lightheadedness or dizziness. No syncopal episodes. Abdominal: Reports no abdominal discomfort. No nausea, vomiting. No diarrhea. No constipation. No bloody or tarry stools. No loss of appetite. Genitourinary: No dysuria, increased frequency, urgency. No urinary retention. Musculoskeletal: No myalgias. No muscle weakness, no gait dysfunction, no frequent falls. No back pain. No neck pain. Integumentary: No wounds, no lesions. No rash or pruritus. No unusual bruising. No change in hair or nails. Neurologic: No aphasia. No facial droop. No change in mentation. No head injury. No headache. No paralysis. No paresthesia. Psychiatric: No depression. No anxiety. No mood swings. Endocrine: No abnormal blood sugars. No weight change. PHYSICAL EXAMINATION Gen: This is a 77-year-old male, laying down in bed in minimal respiratory distress HEENT: Head is atraumatic, normocephalic. Pupils equal, round. Sclerae is anicteric. NECK: Supple. No JVD. No lymphadenopathy. No thyromegaly. LUNGS: Decreased breath sounds at bases, few rhonchi, no expiratory wheezes, no chest wall tenderness, no intercostal retractions HEART: First heart sound is depressed, second heart sound is normal, irregularly irregular, there is 2/6 systolic systolic ejection murmur at the left sternal border there is an AICD., ABDOMEN: Soft. Bowel sounds are present. No masses. No tenderness. EXTREMITIES: there is no edema, no calf tenderness, dorsalis pedis +1 bilaterally. NEUROLOGICAL: Patient is awake, alert and oriented x3. Cranial nerves 2 through 12 are grossly intact, muscle power 5 out of 5 in upper and lower extremities bilaterally. ASSESSMENT AND PLAN 1. Unspecified atrial fibrillation with RVR. continue metoprolol 50 mg orally twice every day, continue patient on heparin drip, he was taken off Eliquis for now 2. type II FL due to A. fib with RVR. Continue patient on metoprolo 50 mg orally twice every day, continue patient on Clopidogrel 75 mg once every day, as well as atorvastatin 40 mg once every day. 3. History of coronary artery disease status post stent. Continue patient on Clopidogrel 75 mg po daily , Imdur 30 mg daily, Lopressor 50 mg twice daily. 4. End-stage dilated ischemic cardiomyopathy with ejection fraction of 10-15% w ith severe dilatation of the atrium and moderate pulmonary hypertension and severe mitral regurgitation and tricuspid regurgitation with mild aortic regurgitation. Continue with the current medication for now, patient has been on heparin drip, he has been on metoprolol 50 mg twice every day, patient could not tolerate Entresto therefore he was placed on digoxin 125 g orally once every day. Continue patient on Lasix 40 mg IV push every 24 hours. 4. Hypertension and hypertensive cardiovascular disease Continue patient on metoprolol 50 mg orally twice every day 5. Hyperlipidemia. Continue atorvastatin 40 mg at bedtime. 6. Chronic anemia. Continue ferrous sulfate 325 mg daily. 7. History of CVA. Continue patient on Clopidogrel 75 mg orally daily , Lipitor 40 mg daily 8. Benign prostatic hypertrophy. Monitor for urinary retention.patient will have an appointment with Dr. Ward as an outpatient PSA is normal for his age. 9. Cardiomyopathy status post AICD. continue patient on metoprolol 50 mg orally twice every day, continue frusemide 40 mg IV push every day could not tolerate Entresto in the past 10. Gastroesophageal reflux disease and GI prophylaxis. Protonix. 40 mg orally once every day. 11. DVT prophylaxis. we will continue with heparin drip. 12. Prognosis is very guarded. Objective - Vital Signs Vital signs: Vital Signs Temp 97.4 F L 07/14/23 07:53 Pulse 117 H 07/14/23 11:35 Resp 19 07/14/23 11:35 BP 95/69 07/14/23 11:35 Pulse Ox 100 07/14/23 11:35 FiO2 Intake & Output 07/13/23 07/14/23 07/14/23 18:59 06:59 18:59 Intake Total 444 942.54 145.594 Output Total 200 Balance 444 942.54 -54.406 Weight 53.6 kg Intake: Intake, IV Titration 162.54 27.594 Amount Heparin Sod,Pork in 0.45% 162.54 27.594 NaCl 25,000 unit In 0.45 % NaCl 1 250ml.bag @ 12 UNITS/KG/HR 6.804 mls/hr IV .Q24H [facility] Rx#: [id number] Oral 444 780 118 Output: Urine 200 Other: Voiding Method Bedside Commode Bedside Commode Bedside Commode # Voids 3 3 - Labs CBC & Chem 7: 07/13/23 07:14 07/13/23 07:14 Labs: Abnormal Lab Results - Last 24 Hours (Table) 07/13/23 07/14/23 Range/Units 07:14 08:00 APTT 43.8 H (22.0-30.0) sec HDL Cholesterol 36.20 L (40.00-60.00) mg/dL
[2023-07-15 08:54] LABS: ALT 21 U/L (4-49); AST 26 U/L (17-59); African American GFR (CKD) 77 (>60 ml/min/1.73 sqM); Albumin 3.2 g/dL (3.5-5.0); Alkaline Phosphatase 64 U/L (38-126); Anion Gap 8 mmol/L; Blood Urea Nitrogen 25 mg/dL (9-20); Calcium 9.1 mg/dL (8.4-10.2); Carbon Dioxide 22 mmol/L (22-30); Chloride 105 mmol/L (98-107); Glucose 102 mg/dL (74-99); Magnesium 1.8 mg/dL (1.6-2.3); Non-African American GFR(CKD) 67 (>60 ml/min/1.73 sqM); Potassium 4.3 mmol/L (3.5-5.1); Sodium 135 mmol/L (137-145); Total Bilirubin 1.1 mg/dL (0.2-1.3); Total Protein 5.4 g/dL (6.3-8.2)
[2023-07-15] MEDS: FUROSEMIDE 10 MG/ML 4 ML VIAL IV SCH (09:59)
[2023-07-15] MEDS: BUDESONIDE 1 MG/2 ML NEBU INHALATION SCH ×2 (11:57→21:21)
--- NOTE | 2023-07-15 12:06 | P.PN ---
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 Patient underwent Left heart Catherization that showed total oclusion of the mif LAD prior to it there was a diagonal branch with eccentric lesion for which he underwent shock wave to LAD and PCI of the diagonal branch with stent placement, was sent home on Eliquis and same cardiac medications and patient has been outside the hospital for the last 7 months,. Of note patient did have an echocardiogram back in July 2021 that showed ejection fraction of 20% with severe mitral regurgitation and tricuspid regurgitation with pulmonary hypertension, patient was doing fine up until last few days when he developed to have an increased shortness with history of increased weakness and generalized fatigue and not able to activities of daily living, his ended up bringing her to the emergency department for evaluation he was found to be in atrial fibrillation with rapid ventricular response, he was taken off his colchicine placed on heparin drip, he was also placed on Cardizem drip along with his metoprolol, he was seen in consultation by cardiology and he was started on digoxin to try to help with rate control, he was taken off lisinopril as well, patient will be kept in the hospital for further evaluation and treatment his troponin was slightly elevated suggestive of type ND due to atrial fibrillation with rapid ventricular response, chest x- ray showed evidence of small bilateral pleural effusion with low-grade vascular congestion, EKG showed atrial fibrillation with rapid ventricular response, laboratory evaluation were reviewed, his troponin was slightly elevated suggestive of type ND. 07/13: Patient is laying down in bed he appears to be somewhat short of breath, he continues to be on heparin drip, he was seen earlier by cardiology, he was s tarted on digoxin for the next few days, he would be maintained on heparin drip for another 24 hours, he has been maintained on Lasix 40 mg IV push every 24 hours, his metoprolol was decreased to 50 mg orally twice every day he was taken off GHISLAINE inhibitor, patient could not tolerate Entrestor and or Farxiga in the past, we will continue to monitor the patient very closely hip procedure week, he is not able to carry out activities of daily living, he lives at home with his , he does not move around much. He underwent echocardiogram that showed ejection fraction of 10-15% with severely dilated cardiomyopathy, and also he did appear to have a moderate. Hypertension with severe mitral regurgitation with bilateral atrial enlargement and mild aortic valve regurgitation he is pretty much end-stage cardiomyopathy at this point in time, he has an AICD in place and we will continue with the current treatment plan.. 07/14: Patient is laying down in bed he continues to be about the same, he continues to be extremely, he appears to be short of breath with rest, he denies any chest pain at this time, he continues to have orthopnea, minimal PND, no edema, generalized weakness, continues to be on current medication including heparin drip, aspirin, Plavix, metoprolol 50 mg twice every day and Lasix 40 mg IV push every 24 hours, he continues to be on digoxin 125 g orally once every day, we will continue to follow up with the patient very closely echocardiogram showed fairly severe dilated cardiomyopathy with ejection fraction of 10-15% with moderate pulmonary hypertension and bilateral atrial enlargement this is very much end-stage cardiomyopathy. 07/15: Patient is lying down in bed in moderate respiratory distress, continue with severe shortness of breath at rest not moving around much, patient heart rate is elevated we will increase Metoprolol to 50 mg po tid and we will start Amiodarone 150 mg IVP over 10 minutes and then will start Amiodarone drip at 1 mg /min for 6 hours followed by 0.5 mg /min for 8 hours , we will monitor BP very closely, prognosis is very guarded REVIEW OF SYSTEMS Constitutional: No fever, no chills, no night sweats. No weight change. No weakness, fatigue or lethargy. No daytime sleepiness. EENT: No headache. No blurred vision or double vision, no loss of vision. No loss of Hearing, no ringing in the ears, no dizziness. No nasal drainage or congestion. No epistaxis. No sore throat. Lungs: Reports shortness of breathimproved, occasional cough, no sputum production. No wheezing. Cardiovascular: No chest pain, no lower extremity edema. Reports palpitations. No paroxysmal nocturnal dyspnea. No orthopnea. No lightheadedness or dizziness. No syncopal episodes. Abdominal: Reports no abdominal discomfort. No nausea, vomiting. No diarrhea. No constipation. No bloody or tarry stools. No loss of appetite. Genitourinary: No dysuria, increased frequency, urgency. No urinary retention. Musculoskeletal: No myalgias. No muscle weakness, no gait dysfunction, no frequent falls. No back pain. No neck pain. Integumentary: No wounds, no lesions. No rash or pruritus. No unusual bruising. No change in hair or nails. Neurologic: No aphasia. No facial droop. No change in mentation. No head injury. No headache. No paralysis. No paresthesia. Psychiatric: No depression. No anxiety. No mood swings. Endocrine: No abnormal blood sugars. No weight change. PHYSICAL EXAMINATION Gen: This is a 77-year-old male, laying down in bed in minimal respiratory distress HEENT: Head is atraumatic, normocephalic. Pupils equal, round. Sclerae is anicteric. NECK: Supple. No JVD. No lymphadenopathy. No thyromegaly. LUNGS: Decreased breath sounds at bases, few rhonchi, no expiratory wheezes, no chest wall tenderness, no intercostal retractions HEART: First heart sound is depressed, second heart sound is normal, irregularly irregular, there is 2/6 systolic systolic ejection murmur at the left sternal border there is an AICD., ABDOMEN: Soft. Bowel sounds are present. No masses. No tenderness. EXTREMITIES: there is no edema, no calf tenderness, dorsalis pedis +1 bilaterally. NEUROLOGICAL: Patient is awake, alert and oriented x3. Cranial nerves 2 through 12 are grossly intact, muscle power 5 out of 5 in upper and lower extremities bilaterally. ASSESSMENT AND PLAN 1. Unspecified atrial fibrillation with RVR. continue metoprolol 50 mg orally three times every day, continue patient on heparin drip, he was taken off Eliquis for now, we will add Amiodarone 150 mg IV followed by Drip 2. type II ND due to A. fib with RVR. Continue patient on metoprolo 50 mg orally three times every day, continue patient on Clopidogrel 75 mg once every day, as well as atorvastatin 40 mg once every day. 3. History of coronary artery disease status post stent. Continue patient on Clopidogrel 75 mg po daily , Imdur 30 mg daily, Lopressor 50 mg three times daily. 4. 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 Continue with the current medication for now, patient has been on heparin drip, he has been on metoprolol 50 mg three times every day, patient could not tolerate Entresto therefore he is off digoxin . Continue patient on Lasix 40 mg IV push every 24 hours. 4. Hypertension and hypertensive cardiovascular disease Continue patient on metoprolol 50 mg orally three times every day 5. Hyperlipidemia. Continue atorvastatin 40 mg at bedtime. 6. Chronic anemia. Continue ferrous sulfate 325 mg daily. 7. History of CVA. Continue patient on Clopidogrel 75 mg orally daily , Lipitor 40 mg daily 8. Benign prostatic hypertrophy. Monitor for urinary retention.patient will have an appointment with Dr. Ward as an outpatient PSA is normal for his age. 9. Cardiomyopathy status post AICD. continue patient on metoprolol 50 mg orally three times every day, continue frusemide 40 mg IV push every day could not tolerate Entresto in the past 10. Gastroesophageal reflux disease and GI prophylaxis. Protonix. 40 mg orally once every day. 11. DVT prophylaxis. we will continue with heparin drip. 12. Prognosis is very guarded. Objective - Vital Signs Vital signs: Vital Signs Temp 97.7 F 07/15/23 07:44 Pulse 78 07/15/23 08:15 Resp 17 07/15/23 07:44 BP 92/67 07/15/23 07:44 Pulse Ox 99 07/15/23 07:44 FiO2 Intake & Output 07/14/23 07/15/23 07/15/23 18:59 06:59 18:59 Intake Total 777.928 2401 Output Total 200 Balance 220.214 8829 Intake: Intake, IV Titration 71.366 Amount Heparin Sod,Pork in 0.45% 71.366 NaCl 25,000 unit In 0.45 % NaCl 1 250ml.bag @ 12 UNITS/KG/HR 6.804 mls/hr IV .Q24H [facility] Rx#: [id number] Oral [id number] 1080 Output: Urine 200 Other: Voiding Method Bedside Commode Bedside Commode Bedside Commode # Voids 3 - Labs CBC & Chem 7: 07/15/23 07:28 07/15/23 07:28 Labs: Abnormal Lab Results - Last 24 Hours (Table) 07/14/23 07/14/2324 Range/Units 08:00 14:37 14:37 RBC (4.30-5.90) m/uL Hgb (13.0-17.5) gm/dL Plt Count (150-450) k/uL APTT 43.8 H 46.6 H (22.0-30.0) sec BUN 27 H (9-20) mg/dL Creatinine 1.35 H (0.66-1.25) mg/dL Glucose 123 H (74-99) mg/dL 07/15/23 07/15/23 Range/Units 07:28 07:28 RBC 3.93 L (4.30-5.90) m/uL Hgb 12.7 L (13.0-17.5) gm/dL Plt Count 130 L (150-450) k/uL APTT 54.5 H (22.0-30.0) sec BUN (9-20) mg/dL Creatinine (0.66-1.25) mg/dL Glucose (74-99) mg/dL
[2023-07-15] MEDS ORDERED: AMIODARONE 360 MG in DEXTROSE 5% IN WATER 200 ML IV ONE ×2 (12:07)
[2023-07-15] MEDS ORDERED: DEXTROSE 5% IN WATER 100 ML with AMIODARONE 150 MG IV ONE (12:07)
--- NOTE | 2023-07-15 14:39 | P.PN ---
Subjective Progress Note Date: 07/15/23 Progress note 07/15/23 Creatinine is back to baseline. BP 80/60, heart rate 110, atrial fibrillation Swelling is much better., Fluid status is getting better. Good urine output. He was started on amiodarone drip because of elevated heart rate. I feel amiodarone is not the best option here because patient's EF is very low and the beta javad effect of amiodarone. Affected negatively. He would benefit from digoxin which showed give him some inotropic effect along with rate control History of present illness: This is a 77-year-old male patient of Dr. MICHELLE Ly with past medical history of chronic persistent atrial fibrillation on Eliquis, ischemic cardiomyopathy with prior anterior HI in the with plain balloon angioplasty, status post AICD, stenting with shockwave lithotripsy in August 2022, PAD. We have been asked to evaluate the patient for non-ST elevated HI and ischemic cardiomyopathy. History is obtained between the patient and his . Patient has had shortness of breath with minimal activity along with weakness and weight loss. He denies having any lower extremity edema. Patient's states that he is cold all the time. No signs of bleeding. Patient has been started on a heparin drip. Patient has had rate control issues this morning with hypotension. EKG atrial fibrillation with PVCs Chest x-ray: Cardiomegaly and trace pleural effusion seen in the lateral view. Suspect sequela of mild CHF. No pulmonary edema or annette pulmonary vascular congestion seen. WBC 7.1, hemoglobin 13.1, platelet count 141. INR 1.2. Sodium 141, potassium 4.6, BUN 33 creatinine 1.62 up from 1.35 yesterday. Liver function test are normal. Troponins 0.128, 0.157, 0.172. Influenza A, influenza B, COVID-19, RSV not detected. Home cardiac medications: Eliquis 5 mg twice daily, atorvastatin 40 mg daily, Plavix 75 mg daily, Farxiga 10 mg daily, Lasix 40 mg daily, Imdur 30 mg daily, lisinopril 1.25 mg daily, Lopressor 100 mg 3 times daily, potassium chloride 20 mill equivalents daily. Cardiac catheterization performed 10/03/2022 revealed LAD totally occluded, diagonal branch which was stented with a heavily calcified vessel addressed with shockwave lithotripsy and noncompliant balloon and stent with now restenosis of 80%. Echocardiogram performed 08/08/2021 revealed EF less than 20%, borderline concentric left ventricular hypertrophy, mild aortic regurgitation, moderate to severe mitral regurgitation, moderate to severe tricuspid regurgitation, mild pulmonary hypertension. Physical examination: HEENT: Head is atraumatic, normocephalic. Pupils equal, round. Sclerae is anicteric. NECK: Supple. Has JVD. LUNGS: Mild crackles HEART: irregular. 2/6 systolic ejection murmur at the left sternal border murmur. ABDOMEN: Soft No tenderness. EXTREMITIES: 1+ pedal edema. No calf tenderness. NEUROLOGICAL: Patient is awake, alert and oriented x3. Assessment: Elevated troponins, flat presentation, type II HI Acute Systolic CHF Acute kidney injury, better Thrombocytopenia Chronic persistent atrial fibrillation, RVR Ischemic cardiomyopathy status post AICD, EF 10% Plan: d/c heparin. Resume eliquis. Continue plavix. D/c aspirin. Continue digoxin. Hold today as got amiodarone. D/c amiodarone after 6 hr He was started on amiodarone drip because of elevated heart rate. I feel amiodarone is not the best option here because patient's EF is very low and the beta javad effect of amiodarone. Affected negatively. He would benefit from digoxin which showed give him some inotropic effect along with rate control Continue Lasix 40 g IV daily. Transition to PO bumex 1 mg daily tomorrow He would benefit from Vericiguat if he has insurance coverage. Discontinue lisinopril. Monitor kidney function. Monitor urine output Prognosis extremely guarded. Consider Hospice and Palliative care consult. I have discussed this with family and they are open to palliative care Objective - Vital Signs Vital signs: Vital Signs Temp 97.7 F 07/15/23 07:44 Pulse 109 H 07/15/23 13:58 Resp 21 07/15/23 13:14 BP 76/53 07/15/23 13:58 Pulse Ox 100 07/15/23 11:30 FiO2 Intake & Output 07/14/23 07/15/23 07/15/23 18:59 06:59 18:59 Intake Total 906.995 5380 0 Output Total 200 100 Balance 846.468 2931 -100 Intake: Intake, IV Titration 71.366 Amount Heparin Sod,Pork in 0.45% 71.366 NaCl 25,000 unit In 0.45 % NaCl 1 250ml.bag @ 12 UNITS/KG/HR 6.804 mls/hr IV .Q24H [facility] Rx#: [id number] Oral 358 1080 0 Output: Urine 200 100 Other: Voiding Method Bedside Commode Bedside Commode Bedside Commode # Voids 3 1 - Labs CBC & Chem 7: 07/15/23 07:28 07/15/23 07:28 Labs: Abnormal Lab Results - Last 24 Hours (Table) 07/14/23 07/14/23 07/15/23 Range/Units 14:37 14:37 07:28 RBC 3.93 L (4.30-5.90) m/uL Hgb 12.7 L (13.0-17.5) gm/dL Plt Count 130 L (150-450) k/uL APTT 46.6 H (22.0-30.0) sec Sodium (137-145) mmol/L BUN 27 H (9-20) mg/dL Creatinine 1.35 H (0.66-1.25) mg/dL Glucose 123 H (74-99) mg/dL Total Protein (6.3-8.2) g/dL Albumin (3.5-5.0) g/dL 07/15/23 07/15/23 Range/Units 07:28 07:28 RBC (4.30-5.90) m/uL Hgb (13.0-17.5) gm/dL Plt Count (150-450) k/uL APTT 54.5 H (22.0-30.0) sec Sodium 135 L (137-145) mmol/L BUN 25 H (9-20) mg/dL Creatinine (0.66-1.25) mg/dL Glucose 102 H (74-99) mg/dL Total Protein 5.4 L (6.3-8.2) g/dL Albumin 3.2 L (3.5-5.0) g/dL
[2023-07-15] MEDS ORDERED: ALPRAZolam 0.5 MG TAB PO STA (14:42)
[2023-07-15] MEDS: ACETAMINOPHEN TAB 325 MG TAB PO PRN ×2 (14:48→21:39)
[2023-07-15] MEDS ORDERED: METOPROLOL TARTRATE 50 MG TAB PO SCH (16:00)
[2023-07-15] MEDS ORDERED: AMIODARONE 450 MG in DEXTROSE 5% IN WATER 250 ML IV SCH ×2 (18:15)
[2023-07-15] MEDS ORDERED: DIGOXIN 125 MCG TAB PO ONE (21:32)
[2023-07-15] MEDS: APIXABAN 5 MG TAB PO SCH (21:37)
[2023-07-16] MEDS ORDERED: AMIODARONE 450 MG in DEXTROSE 5% IN WATER 250 ML IV SCH ×2
[2023-07-16] MEDS: ACETAMINOPHEN TAB 325 MG TAB PO PRN ×3 (02:41→21:21)
[2023-07-16 03:14] LABS: Glucose,Whole Blood 134 mg/dL (70-110)
[2023-07-16] MEDS ORDERED: DIGOXIN 250 MCG TAB PO ONE (03:31)
[2023-07-16] MEDS ORDERED: ALPRAZolam 0.5 MG TAB PO STA (03:32)
[2023-07-16] MEDS: SODIUM CHLORIDE 0.9% 250 ML IV SCH ×4 (03:39→05:41)
[2023-07-16] MEDS ORDERED: DIGOXIN 250 MCG/ML 2 ML AMP IVP ONE (04:16)
[2023-07-16] MEDS: PANTOPRAZOLE 40 MG TABLET PO SCH (06:31)
[2023-07-16] MEDS ORDERED: DIGOXIN 125 MCG TAB PO SCH (08:00)
[2023-07-16] MEDS: BUDESONIDE 1 MG/2 ML NEBU INHALATION SCH ×2 (08:06→21:15)
[2023-07-16] MEDS: ALBUTEROL NEBULIZED 2.5 MG/3 ML INHALATION PRN ×4 (08:07→21:15)
[2023-07-16 08:32] LABS: Hypochromasia Slight; MCH 31.2 pg (25.0-35.0); MCHC 31.7 g/dL (31.0-37.0); MCV 98.6 fL (80.0-100.0); Macrocytosis Slight; Mean Platelet Volume 11.6; Platelet Count 141 k/uL (150-450); RBC 4.16 m/uL (4.30-5.90); RDW 15.3 % (11.5-15.5); WBC 11.7 k/uL (3.8-10.6)
[2023-07-16 09:00] LABS: African American GFR (CKD) 56 (>60 ml/min/1.73 sqM); Anion Gap 11 mmol/L; Blood Urea Nitrogen 31 mg/dL (9-20); Carbon Dioxide 17 mmol/L (22-30); Chloride 98 mmol/L (98-107); Glucose 101 mg/dL (74-99); Non-African American GFR(CKD) 49 (>60 ml/min/1.73 sqM); Potassium 5.6 mmol/L (3.5-5.1); Sodium 126 mmol/L (137-145)
[2023-07-16] MEDS: DAPAGLIFLOZIN PROPANEDIOL 10 MG TABLET PO SCH (09:27)
[2023-07-16] MEDS: FUROSEMIDE 40 MG TAB PO SCH (09:28)
[2023-07-16] MEDS: CLOPIDOGREL 75 MG TAB PO SCH (09:28)
[2023-07-16] MEDS: POTASSIUM CHLORIDE ER 20 MEQ TAB.ER PO SCH (09:28)
[2023-07-16] MEDS: SENNOSIDES-DOCUSATE SODIUM 1 EACH TAB PO SCH ×2 (09:29→21:18)
[2023-07-16] MEDS: AMIODARONE 200 MG TAB PO SCH ×2 (09:29→21:17)
[2023-07-16] MEDS: APIXABAN 5 MG TAB PO SCH ×2 (09:30→21:17)
[2023-07-16] MEDS: ATORVASTATIN 40 MG TAB PO SCH (09:30)
[2023-07-16] MEDS: HYDROCORTISONE SUPPOSITORY 25 MG SUPP RECTAL SCH ×2 (09:31→21:18)
[2023-07-16] MEDS: CHOLECALCIFEROL 25 MCG (1000 IU) TABLET PO SCH (09:31)
[2023-07-16] MEDS: METOPROLOL TARTRATE 50 MG TAB PO SCH ×2 (09:34→21:17)
[2023-07-16] MEDS ORDERED: SODIUM ZIRCONIUM CYCLOSILICATE 10 GM PACKET PO ONE (11:00)
--- NOTE | 2023-07-16 12:39 | P.PN ---
Subjective HISTORY OF PRESENT ILLNESS: This is a 77-year-old male who follows in the office with Dr. Ly. Patient examined this morning at the bedside. Patient currently denies chest pain or pressure. He denies shortness of breath. Patient went into A. fib with RVR overnight with a heart rate into the 150s and low blood pressures with a systolic in the 70s. He was given IV digoxin and started on amiodarone drip. This morning his blood pressure has improved. Telemetry reveals atrial fibrillation with a heart rate in the 90s. Patient denies any chest pain or pressure. He does report shortness of breath this morning. PHYSICAL EXAM: VITAL SIGNS: Reviewed. GENERAL: Well-developed in no acute distress. NECK: Supple. No JVD or thyromegaly LUNGS: Respirations even and unlabored. Lungs essentially clear to auscultation bilaterally. HEART: Irregular rate and rhythm. S1 and S2 heard. Systolic murmur noted. EXTREMITIES: Normal range of motion. No clubbing or cyanosis. Peripheral pulses intact. No lower extremity edema ASSESSMENT: Shortness of breath Elevated troponins, type II ID Persistent atrial fibrillation with RVR, currently rate controlled Hypotension, improving Acute kidney injury Thrombocytopenia Ischemic cardiomyopathy, EF 10-15% History of AICD implantation Coronary artery disease PLAN: Discontinue IV amiodarone Begin oral amiodarone 400 mg twice a day Discontinue IV Lasix. Begin oral Lasix 40 mg daily Discontinue Aspirin. 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 Signing provider agrees with the documented findings, assessment, and plan of care. Objective - Vital Signs Vital signs: Vital Signs Temp 97.2 F L 07/16/23 11:49 Pulse 70 07/16/23 12:26 Resp 18 07/16/23 11:49 BP 93/63 07/16/23 11:49 Pulse Ox 98 07/16/23 11:49 FiO2 Intake & Output 07/15/23 07/16/23 07/16/23 18:59 06:59 18:59 Intake Total 200 10 0 Output Total 100 50 Balance 100 10 -50 Intake: IV 10 Invasive Line 1 10 Oral 200 0 Output: Urine 100 50 Other: Voiding Method Bedside Commode Bedside Commode Bedside Commode # Voids 1 1 1 # Bowel Movements 1 - Labs CBC & Chem 7: 07/16/23 06:55 07/16/23 06:55 Labs: Abnormal Lab Results - Last 24 Hours (Table) 07/16/23 07/16/23 07/16/23 Range/Units 03:01 06:55 06:55 WBC 11.7 H (3.8-10.6) k/uL RBC 4.16 L (4.30-5.90) m/uL Plt Count 141 L (150-450) k/uL Sodium 126 L (137-145) mmol/L Potassium 5.6 H (3.5-5.1) mmol/L Carbon Dioxide 17 L (22-30) mmol/L BUN 31 H (9-20) mg/dL Creatinine 1.38 H (0.66-1.25) mg/dL Glucose 101 H (74-99) mg/dL POC Glucose (mg/dL) 134 H (70-110) mg/dL
--- NOTE | 2023-07-16 13:23 | P.PN ---
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 Patient underwent Left heart Catherization that showed total oclusion of the mif LAD prior to it there was a diagonal branch with eccentric lesion for which he underwent shock wave to LAD and PCI of the diagonal branch with stent placement, was sent home on Eliquis and same cardiac medications and patient has been outside the hospital for the last 7 months,. Of note patient did have an echocardiogram back in July 2021 that showed ejection fraction of 20% with severe mitral regurgitation and tricuspid regurgitation with pulmonary hypertension, patient was doing fine up until last few days when he developed to have an increased shortness with history of increased weakness and generalized fatigue and not able to activities of daily living, his ended up bringing her to the emergency department for evaluation he was found to be in atrial fibrillation with rapid ventricular response, he was taken off his colchicine placed on heparin drip, he was also placed on Cardizem drip along with his metoprolol, he was seen in consultation by cardiology and he was started on digoxin to try to help with rate control, he was taken off lisinopril as well, patient will be kept in the hospital for further evaluation and treatment his troponin was slightly elevated suggestive of type CO due to atrial fibrillation with rapid ventricular response, chest x- ray showed evidence of small bilateral pleural effusion with low-grade vascular congestion, EKG showed atrial fibrillation with rapid ventricular response, laboratory evaluation were reviewed, his troponin was slightly elevated suggestive of type CO. 07/13: Patient is laying down in bed he appears to be somewhat short of breath, he continues to be on heparin drip, he was seen earlier by cardiology, he was s tarted on digoxin for the next few days, he would be maintained on heparin drip for another 24 hours, he has been maintained on Lasix 40 mg IV push every 24 hours, his metoprolol was decreased to 50 mg orally twice every day he was taken off GHISLAINE inhibitor, patient could not tolerate Entrestor and or Farxiga in the past, we will continue to monitor the patient very closely hip procedure week, he is not able to carry out activities of daily living, he lives at home with his , he does not move around much. He underwent echocardiogram that showed ejection fraction of 10-15% with severely dilated cardiomyopathy, and also he did appear to have a moderate. Hypertension with severe mitral regurgitation with bilateral atrial enlargement and mild aortic valve regurgitation he is pretty much end-stage cardiomyopathy at this point in time, he has an AICD in place and we will continue with the current treatment plan.. 07/14: Patient is laying down in bed he continues to be about the same, he continues to be extremely, he appears to be short of breath with rest, he denies any chest pain at this time, he continues to have orthopnea, minimal PND, no edema, generalized weakness, continues to be on current medication including heparin drip, aspirin, Plavix, metoprolol 50 mg twice every day and Lasix 40 mg IV push every 24 hours, he continues to be on digoxin 125 g orally once every day, we will continue to follow up with the patient very closely echocardiogram showed fairly severe dilated cardiomyopathy with ejection fraction of 10-15% with moderate pulmonary hypertension and bilateral atrial enlargement this is very much end-stage cardiomyopathy. 07/15: Patient is lying down in bed in moderate respiratory distress, continue with severe shortness of breath at rest not moving around much, patient heart rate is elevated we will increase Metoprolol to 50 mg po tid and we will start Amiodarone 150 mg IVP over 10 minutes and then will start Amiodarone drip at 1 mg /min for 6 hours followed by 0.5 mg /min for 8 hours , we will monitor BP very closely, prognosis is very guarded 07/16: Patient has been seen this morning by cardiology and amiodarone gtt has been transitioned to oral 400 mg bid. He is status post 1 dose of oral digoxin yesterday followed by 1 dose of 250 mcg IV push this morning. Heart rate is currently 88-100. He remains in atrial fibrillation. Blood pressure 93/63, pulse ox 90% on 3 L, afebrile. Repeat blood work reveals WBC 11.7, hemoglobin 13, sodium 126, potassium 5.6, BUN 31 creatinine 1.38. Digoxin level 2.1. Patient states that he is feeling a little better today. He states he does not have any appetite. Patient appears to be in good spirits today. REVIEW OF SYSTEMS Constitutional: No fever, no chills, no night sweats. No weight change. No weakness, fatigue or lethargy. No daytime sleepiness. EENT: No headache. No blurred vision or double vision, no loss of vision. No loss of Hearing, no ringing in the ears, no dizziness. No nasal drainage or congestion. No epistaxis. No sore throat. Lungs: Reports shortness of breathimproved, occasional cough, no sputum production. No wheezing. Cardiovascular: No chest pain, no lower extremity edema. Reports palpitations. No paroxysmal nocturnal dyspnea. No orthopnea. No lightheadedness or dizziness. No syncopal episodes. Abdominal: Reports no abdominal discomfort. No nausea, vomiting. No diarrhea. No constipation. No bloody or tarry stools. No loss of appetite. Genitourinary: No dysuria, increased frequency, urgency. No urinary retention. Musculoskeletal: No myalgias. No muscle weakness, no gait dysfunction, no frequent falls. No back pain. No neck pain. Integumentary: No wounds, no lesions. No rash or pruritus. No unusual bruising. No change in hair or nails. Neurologic: No aphasia. No facial droop. No change in mentation. No head injury. No headache. No paralysis. No paresthesia. Psychiatric: No depression. No anxiety. No mood swings. Endocrine: No abnormal blood sugars. No weight change. PHYSICAL EXAMINATION Gen: This is a 77-year-old male, laying down in bed in minimal respiratory distress HEENT: Head is atraumatic, normocephalic. Pupils equal, round. Sclerae is anicteric. NECK: Supple. No JVD. No lymphadenopathy. No thyromegaly. LUNGS: Decreased breath sounds at bases, few rhonchi, no expiratory wheezes, no chest wall tenderness, no intercostal retractions HEART: First heart sound is depressed, second heart sound is normal, irregularly irregular, there is 2/6 systolic systolic ejection murmur at the left sternal border there is an AICD., ABDOMEN: Soft. Bowel sounds are present. No masses. No tenderness. EXTREMITIES: there is no edema, no calf tenderness, dorsalis pedis +1 bilaterally. NEUROLOGICAL: Patient is awake, alert and oriented x3. Cranial nerves 2 through 12 are grossly intact, muscle power 5 out of 5 in upper and lower extremities bilaterally. ASSESSMENT AND PLAN 1. Persistent atrial fibrillation with RVR, currently rate controlled. Continue patient on amiodarone 400 mg twice daily, Eliquis 5 mg twice daily, Lopressor 50 mg twice daily. Cardiology consult appreciated. 2. type II CO due to A. fib with RVR. Continue patient on metoprolo 50 mg orally three times every day, continue patient on Clopidogrel 75 mg once every day, as well as atorvastatin 40 mg once every day. 3. History of coronary artery disease status post stent. Continue patient on Clopidogrel 75 mg po daily , Imdur 30 mg daily, Lopressor 50 mg three times daily. 4. 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 Continue with the current medication for now, patient has been on heparin drip, he has been on metoprolol 50 mg three times every day, patient could not tolerate Entresto therefore he is off digoxin . Continue patient on Lasix 40 mg IV push every 24 hours. 4. Hypertension and hypertensive cardiovascular disease Continue patient on metoprolol 50 mg orally three times every day 5. Hyperlipidemia. Continue atorvastatin 40 mg at bedtime. 6. Chronic anemia. Continue ferrous sulfate 325 mg daily. 7. History of CVA. Continue patient on Clopidogrel 75 mg orally daily , Lipitor 40 mg daily 8. Benign prostatic hypertrophy. Monitor for urinary retention.patient will have an appointment with Dr. Ward as an outpatient PSA is normal for his age. 9. Cardiomyopathy status post AICD. continue patient on metoprolol 50 mg orally three times every day, continue frusemide 40 mg oral every day could not tolerate Entresto in the past 10. Gastroesophageal reflux disease and GI prophylaxis. Protonix. 40 mg orally once every day. 11. DVT prophylaxis. we will continue with heparin drip. 12. Prognosis is very guarded. Impression and plan of care have been directed as dictated by the signing physician. Arabella Baxter nurse practitioner acting as scribe for signing physician. Objective - Vital Signs Vital signs: Vital Signs Temp 97.2 F L 07/16/23 11:49 Pulse 72 07/16/23 12:37 Resp 18 07/16/23 11:49 BP 93/63 07/16/23 11:49 Pulse Ox 98 07/16/23 11:49 FiO2 Intake & Output 07/15/23 07/16/23 07/16/23 18:59 06:59 18:59 Intake Total 200 10 0 Output Total 100 50 Balance 100 10 -50 Intake: IV 10 Invasive Line 1 10 Oral 200 0 Output: Urine 100 50 Other: Voiding Method Bedside Commode Bedside Commode Bedside Commode # Voids 1 1 1 # Bowel Movements 1 - Labs CBC & Chem 7: 07/16/23 06:55 07/16/23 06:55 Labs: Abnormal Lab Results - Last 24 Hours (Table) 07/16/23 07/16/23 07/16/23 Range/Units 03:01 06:55 06:55 WBC 11.7 H (3.8-10.6) k/uL RBC 4.16 L (4.30-5.90) m/uL Plt Count 141 L (150-450) k/uL Sodium 126 L (137-145) mmol/L Potassium 5.6 H (3.5-5.1) mmol/L Carbon Dioxide 17 L (22-30) mmol/L BUN 31 H (9-20) mg/dL Creatinine 1.38 H (0.66-1.25) mg/dL Glucose 101 H (74-99) mg/dL POC Glucose (mg/dL) 134 H (70-110) mg/dL
[2023-07-16] MEDS ORDERED: DIGOXIN 125 MCG TAB PO ONE (21:00)
[2023-07-17] MEDS: ALPRAZolam 0.25 MG TAB PO PRN ×2 (00:10→10:40)
[2023-07-17] MEDS: ALBUTEROL NEBULIZED 2.5 MG/3 ML INHALATION PRN ×3 (03:17→15:05)
[2023-07-17] MEDS: PANTOPRAZOLE 40 MG TABLET PO SCH (06:39)
[2023-07-17] MEDS: CHOLECALCIFEROL 25 MCG (1000 IU) TABLET PO SCH (08:40)
[2023-07-17] MEDS: VIT A,C & E-LUTEIN-MINERALS 1 EACH TAB PO SCH (08:40)
[2023-07-17] MEDS: AMIODARONE 200 MG TAB PO SCH (08:40)
[2023-07-17] MEDS: DAPAGLIFLOZIN PROPANEDIOL 10 MG TABLET PO SCH (08:40)
[2023-07-17] MEDS: ACETAMINOPHEN TAB 325 MG TAB PO PRN (08:41)
[2023-07-17] MEDS: SENNOSIDES-DOCUSATE SODIUM 1 EACH TAB PO SCH (08:41)
[2023-07-17] MEDS: APIXABAN 5 MG TAB PO SCH (08:41)
[2023-07-17] MEDS: METOPROLOL TARTRATE 50 MG TAB PO SCH (08:41)
[2023-07-17] MEDS: CLOPIDOGREL 75 MG TAB PO SCH (08:41)
[2023-07-17] MEDS: HYDROCORTISONE SUPPOSITORY 25 MG SUPP RECTAL SCH (08:41)
[2023-07-17] MEDS: FUROSEMIDE 40 MG TAB PO SCH (08:41)
[2023-07-17] MEDS: ATORVASTATIN 40 MG TAB PO SCH (08:41)
[2023-07-17 09:06] LABS: African American GFR (CKD) 64 (>60 ml/min/1.73 sqM); Anion Gap 9 mmol/L; Blood Urea Nitrogen 33 mg/dL (9-20); Calcium 9.3 mg/dL (8.4-10.2); Carbon Dioxide 18 mmol/L (22-30); Chloride 97 mmol/L (98-107); Glucose 87 mg/dL (74-99); Non-African American GFR(CKD) 55 (>60 ml/min/1.73 sqM); Potassium 4.9 mmol/L (3.5-5.1); Sodium 124 mmol/L (137-145)
--- NOTE | 2023-07-17 09:59 | P.PN ---
Subjective HISTORY OF PRESENT ILLNESS: This is a 77-year-old male who follows in the office with Dr. Ly. Patient examined this morning at the bedside. Patient currently denies chest pain or pressure. He denies shortness of breath. Patient went into A. fib with RVR overnight with a heart rate into the 150s and low blood pressures with a systolic in the 70s. He was given IV digoxin and started on amiodarone drip. This morning his blood pressure has improved. Telemetry reveals atrial fibrillation with a heart rate in the 90s. Patient denies any chest pain or pressure. He does report shortness of breath this morning. July 17, 2023 Patient examined this morning at the bedside. Patient spouse is present. Patient currently denies chest pain or pressure. He continues to report shortness of breath. Telemetry reveals atrial fibrillation with a heart rate between [id number]. Patient's blood pressures remain soft with a systolic in the low 90s. Potassium today is 4.9. Potassium yesterday was 5.6. Patients sodium remains low today at 124. PHYSICAL EXAM: VITAL SIGNS: Reviewed. GENERAL: Well-developed in no acute distress. NECK: Supple. No JVD or thyromegaly LUNGS: Respirations even and unlabored. Lungs essentially clear to auscultation bilaterally. HEART: Irregular rate and rhythm. S1 and S2 heard. Systolic murmur noted. EXTREMITIES: Normal range of motion. No clubbing or cyanosis. Peripheral pulses intact. No lower extremity edema ASSESSMENT: Shortness of breath Elevated troponins, type II TN Persistent atrial fibrillation with RVR, currently rate controlled Hypotension, improving Acute kidney injury Thrombocytopenia Ischemic cardiomyopathy, EF 10-15% History of AICD implantation Coronary artery disease Hyperkalemia Hyponatremia PLAN: Continue current cardiac medications Continue to monitor potassium levels. If the patient's potassium levels remain stable, will consider adding Aldactone Hospice has been consulted for an informational meeting Patients manager intermediate prognosis remains poor Further recommendations pending patient course Nurse practitioner note has been reviewed by physician. Signing provider agrees with the documented findings, assessment, and plan of care. Objective - Vital Signs Vital signs: Vital Signs Temp 97.6 F 07/17/23 03:12 Pulse 103 H 07/17/23 03:28 Resp 18 07/17/23 03:12 BP 98/71 07/17/23 03:12 Pulse Ox 97 07/17/23 03:12 FiO2 Intake & Output 07/16/23 07/17/23 07/17/23 18:59 06:59 18:59 Intake Total 120 10 365 Output Total 50 150 Balance 70 -140 365 Intake: IV 10 Invasive Line 1 10 Oral 120 365 Output: Urine 50 150 Other: Voiding Method Bedside Commode Urinal # Voids 1 1 # Bowel Movements 1 - Labs CBC & Chem 7: 07/16/23 06:55 07/17/23 07:55 Labs: Abnormal Lab Results - Last 24 Hours (Table) 07/17/23 Range/Units 07:55 Sodium 124 L (137-145) mmol/L Chloride 97 L (98-107) mmol/L Carbon Dioxide 18 L (22-30) mmol/L BUN 33 H (9-20) mg/dL
[2023-07-17 10:23] VITALS: RESP 20
[2023-07-17] MEDS: BUDESONIDE 1 MG/2 ML NEBU INHALATION SCH (10:38)
[2023-07-17 12:56] VITALS: BP 78/0; TEMP 97.4
[2023-07-17 15:29] VITALS: PULSE 108
--- NOTE | 2023-07-19 15:17 | P.PN ---
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 Patient underwent Left heart Catherization that showed total oclusion of the mif LAD prior to it there was a diagonal branch with eccentric lesion for which he underwent shock wave to LAD and PCI of the diagonal branch with stent placement, was sent home on Eliquis and same cardiac medications and patient has been outside the hospital for the last 7 months,. Of note patient did have an echocardiogram back in July 2021 that showed ejection fraction of 20% with severe mitral regurgitation and tricuspid regurgitation with pulmonary hypertension, patient was doing fine up until last few days when he developed to have an increased shortness with history of increased weakness and generalized fatigue and not able to activities of daily living, his ended up bringing her to the emergency department for evaluation he was found to be in atrial fibrillation with rapid ventricular response, he was taken off his colchicine placed on heparin drip, he was also placed on Cardizem drip along with his metoprolol, he was seen in consultation by cardiology and he was started on digoxin to try to help with rate control, he was taken off lisinopril as well, patient will be kept in the hospital for further evaluation and treatment his troponin was slightly elevated suggestive of type IL due to atrial fibrillation with rapid ventricular response, chest x- ray showed evidence of small bilateral pleural effusion with low-grade vascular congestion, EKG showed atrial fibrillation with rapid ventricular response, laboratory evaluation were reviewed, his troponin was slightly elevated suggestive of type IL. 07/13: Patient is laying down in bed he appears to be somewhat short of breath, he continues to be on heparin drip, he was seen earlier by cardiology, he was s tarted on digoxin for the next few days, he would be maintained on heparin drip for another 24 hours, he has been maintained on Lasix 40 mg IV push every 24 hours, his metoprolol was decreased to 50 mg orally twice every day he was taken off GHISLAINE inhibitor, patient could not tolerate Entrestor and or Farxiga in the past, we will continue to monitor the patient very closely hip procedure week, he is not able to carry out activities of daily living, he lives at home with his , he does not move around much. He underwent echocardiogram that showed ejection fraction of 10-15% with severely dilated cardiomyopathy, and also he did appear to have a moderate. Hypertension with severe mitral regurgitation with bilateral atrial enlargement and mild aortic valve regurgitation he is pretty much end-stage cardiomyopathy at this point in time, he has an AICD in place and we will continue with the current treatment plan.. 07/14: Patient is laying down in bed he continues to be about the same, he continues to be extremely, he appears to be short of breath with rest, he denies any chest pain at this time, he continues to have orthopnea, minimal PND, no edema, generalized weakness, continues to be on current medication including heparin drip, aspirin, Plavix, metoprolol 50 mg twice every day and Lasix 40 mg IV push every 24 hours, he continues to be on digoxin 125 g orally once every day, we will continue to follow up with the patient very closely echocardiogram showed fairly severe dilated cardiomyopathy with ejection fraction of 10-15% with moderate pulmonary hypertension and bilateral atrial enlargement this is very much end-stage cardiomyopathy. 07/15: Patient is lying down in bed in moderate respiratory distress, continue with severe shortness of breath at rest not moving around much, patient heart rate is elevated we will increase Metoprolol to 50 mg po tid and we will start Amiodarone 150 mg IVP over 10 minutes and then will start Amiodarone drip at 1 mg /min for 6 hours followed by 0.5 mg /min for 8 hours , we will monitor BP very closely, prognosis is very guarded 07/16: Patient has been seen this morning by cardiology and amiodarone gtt has been transitioned to oral 400 mg bid. He is status post 1 dose of oral digoxin yesterday followed by 1 dose of 250 mcg IV push this morning. Heart rate is currently 88-100. He remains in atrial fibrillation. Blood pressure 93/63, pulse ox 90% on 3 L, afebrile. Repeat blood work reveals WBC 11.7, hemoglobin 13, sodium 126, potassium 5.6, BUN 31 creatinine 1.38. Digoxin level 2.1. Patient states that he is feeling a little better today. He states he does not have any appetite. Patient appears to be in good spirits today. 07/17: Patient is doing rather poorly today. BP readings are low. There was an informational meeting yesterday with [facility] and is undecided about moving forward with hospice. Dr. Pang discussed hospice in detail with patient and patient seems agreeable as he wishes to be comfortable. REVIEW OF SYSTEMS Constitutional: No fever, no chills, no night sweats. No weight change. No weakness, fatigue or lethargy. No daytime sleepiness. EENT: No headache. No blurred vision or double vision, no loss of vision. No loss of Hearing, no ringing in the ears, no dizziness. No nasal drainage or congestion. No epistaxis. No sore throat. Lungs: Reports shortness of breathimproved, occasional cough, no sputum production. No wheezing. Cardiovascular: No chest pain, no lower extremity edema. Reports palpitations. No paroxysmal nocturnal dyspnea. No orthopnea. No lightheadedness or dizziness. No syncopal episodes. Abdominal: Reports no abdominal discomfort. No nausea, vomiting. No diarrhea. No constipation. No bloody or tarry stools. No loss of appetite. Genitourinary: No dysuria, increased frequency, urgency. No urinary retention. Musculoskeletal: No myalgias. No muscle weakness, no gait dysfunction, no frequent falls. No back pain. No neck pain. Integumentary: No wounds, no lesions. No rash or pruritus. No unusual bruising. No change in hair or nails. Neurologic: No aphasia. No facial droop. No change in mentation. No head injury. No headache. No paralysis. No paresthesia. Psychiatric: No depression. No anxiety. No mood swings. Endocrine: No abnormal blood sugars. No weight change. PHYSICAL EXAMINATION Gen: This is a 77-year-old male, laying down in bed in minimal respiratory distress HEENT: Head is atraumatic, normocephalic. Pupils equal, round. Sclerae is anicteric. NECK: Supple. No JVD. No lymphadenopathy. No thyromegaly. LUNGS: Decreased breath sounds at bases, few rhonchi, no expiratory wheezes, no chest wall tenderness, no intercostal retractions HEART: First heart sound is depressed, second heart sound is normal, irregularly irregular, there is 2/6 systolic systolic ejection murmur at the left sternal border there is an AICD., ABDOMEN: Soft. Bowel sounds are present. No masses. No tenderness. EXTREMITIES: there is no edema, no calf tenderness, dorsalis pedis +1 bilaterally. NEUROLOGICAL: Patient is awake, alert and oriented x3. Cranial nerves 2 through 12 are grossly intact, muscle power 5 out of 5 in upper and lower extremities bilaterally. ASSESSMENT AND PLAN 1. Persistent atrial fibrillation with RVR, currently rate controlled. Continue patient on amiodarone 400 mg twice daily, Eliquis 5 mg twice daily, Lopressor 50 mg twice daily. Cardiology consult appreciated. 2. 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 Continue patient on metoprolo 50 mg orally three times every day, continue patient on Clopidogrel 75 mg once every day, as well as atorvastatin 40 mg once every day. 3. History of coronary artery disease status post stent. Continue patient on Clopidogrel 75 mg po daily , Imdur 30 mg daily, Lopressor 50 mg three times daily. 4. 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 Continue with the current medication for now, patient has been on heparin drip, he has been on metoprolol 50 mg three times every day, patient could not tolerate Entresto therefore he is off digoxin . Continue patient on Lasix 40 mg IV push every 24 hours. 4. Hypertension and hypertensive cardiovascular disease Continue patient on metoprolol 50 mg orally three times every day 5. Hyperlipidemia. Continue atorvastatin 40 mg at bedtime. 6. Chronic anemia. Continue ferrous sulfate 325 mg daily. 7. History of CVA. Continue patient on Clopidogrel 75 mg orally daily , Lipitor 40 mg daily 8. Benign prostatic hypertrophy. Monitor for urinary retention.patient will have an appointment with Dr. Ward as an outpatient PSA is normal for his age. 9. Cardiomyopathy status post AICD. continue patient on metoprolol 50 mg orally three times every day, continue frusemide 40 mg oral every day could not tolerate Entresto in the past 10. Gastroesophageal reflux disease and GI prophylaxis. Protonix. 40 mg orally once every day. 11. DVT prophylaxis. we will continue with heparin drip. 12. Prognosis is very guarded. Patient will be transition to hospice care once arrangements are completed. Impression and plan of care have been directed as dictated by the signing physician. Arabella Baxter nurse practitioner acting as scribe for signing physician. Objective - Vital Signs Vital signs: Vital Signs Temp 97.4 F L 07/17/23 12:00 Pulse 112 H 07/17/23 12:00 Resp 20 07/17/23 12:00 BP 78/0 07/17/23 12:00 Pulse Ox 100 07/17/23 12:00 FiO2 Intake & Output 07/16/23 07/17/23 07/17/23 18:59 06:59 18:59 Intake Total 120 10 365 Output Total 50 150 Balance 70 -140 365 Weight 53.6 kg Intake: IV 10 Invasive Line 1 10 Oral 120 365 Output: Urine 50 150 Other: Voiding Method Bedside Commode Urinal Urinal # Voids 1 1 # Bowel Movements 1 - Labs CBC & Chem 7: 07/16/23 06:55 07/17/23 07:55 Labs: Abnormal Lab Results - Last 24 Hours (Table) 07/17/23 Range/Units 07:55 Sodium 124 L (137-145) mmol/L Chloride 97 L (98-107) mmol/L Carbon Dioxide 18 L (22-30) mmol/L BUN 33 H (9-20) mg/dL
--- NOTE | 2023-07-19 15:19 | P.DS ---
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 Patient underwent Left heart Catherization that showed total oclusion of the mif LAD prior to it there was a diagonal branch with eccentric lesion for which he underwent shock wave to LAD and PCI of the diagonal branch with stent placement, was sent home on Eliquis and same cardiac medications and patient has been outside the hospital for the last 7 months,. Of note patient did have an echocardiogram back in July 2021 that showed ejection fraction of 20% with severe mitral regurgitation and tricuspid regurgitation with pulmonary hypertension, patient was doing fine up until last few days when he developed to have an increased shortness with history of increased weakness and generalized fatigue and not able to activities of daily living, his ended up bringing her to the emergency department for evaluation he was found to be in atrial fibrillation with rapid ventricular response, he was taken off his colchicine placed on heparin drip, he was also placed on Cardizem drip along with his metoprolol, he was seen in consultation by cardiology and he was started on digoxin to try to help with rate control, he was taken off lisinopril as well, patient will be kept in the hospital for further evaluation and treatment his troponin was slightly elevated suggestive of type SD due to atrial fibrillation with rapid ventricular response, chest x-ray showed evidence of small bilateral pleural effusion with low-grade vascular congestion, EKG showed atrial fibrillation with rapid ventricular response, laboratory evaluation were reviewed, his troponin was slightly elevated suggestive of type SD. 07/13: Patient is laying down in bed he appears to be somewhat short of breath, he continues to be on heparin drip, he was seen earlier by cardiology, he was started on digoxin for the next few days, he would be maintained on heparin drip for another 24 hours, he has been maintained on Lasix 40 mg IV push every 24 hours, his metoprolol was decreased to 50 mg orally twice every day he was taken off GHISLAINE inhibitor, patient could not tolerate Entrestor and or Farxiga in the past, we will continue to monitor the patient very closely hip procedure week, he is not able to carry out activities of daily living, he lives at home with his , he does not move around much. He underwent echocardiogram that showed ejection fraction of 10-15% with severely dilated cardiomyopathy, and also he did appear to have a moderate. Hypertension with severe mitral regurgitation with bilateral atrial enlargement and mild aortic valve regurgitation he is pretty much end-stage cardiomyopathy at this point in time, he has an AICD in place and we will continue with the current treatment plan.. 07/14: Patient is laying down in bed he continues to be about the same, he continues to be extremely, he appears to be short of breath with rest, he denies any chest pain at this time, he continues to have orthopnea, minimal PND, no edema, generalized weakness, continues to be on current medication including heparin drip, aspirin, Plavix, metoprolol 50 mg twice every day and Lasix 40 mg IV push every 24 hours, he continues to be on digoxin 125 g orally once every day, we will continue to follow up with the patient very closely echocardiogram showed fairly severe dilated cardiomyopathy with ejection fraction of 10-15% with moderate pulmonary hypertension and bilateral atrial enlargement this is very much end-stage cardiomyopathy. 07/15: Patient is lying down in bed in moderate respiratory distress, continue with severe shortness of breath at rest not moving around much, patient heart rate is elevated we will increase Metoprolol to 50 mg po tid and we will start Amiodarone 150 mg IVP over 10 minutes and then will start Amiodarone drip at 1 mg /min for 6 hours followed by 0.5 mg /min for 8 hours , we will monitor BP very closely, prognosis is very guarded 07/16: Patient has been seen this morning by cardiology and amiodarone gtt has been transitioned to oral 400 mg bid. He is status post 1 dose of oral digoxin yesterday followed by 1 dose of 250 mcg IV push this morning. Heart rate is currently 88-100. He remains in atrial fibrillation. Blood pressure 93/63, pulse ox 90% on 3 L, afebrile. Repeat blood work reveals WBC 11.7, hemoglobin 13, sodium 126, potassium 5.6, BUN 31 creatinine 1.38. Digoxin level 2.1. Patient states that he is feeling a little better today. He states he does not have any appetite. Patient appears to be in good spirits today. 07/17: Patient is doing rather poorly today. BP readings are low. There was an informational meeting yesterday with Hospice and is undecided about moving forward with hospice. Dr. Pang discussed hospice in detail with patient and patient seems agreeable as he wishes to be comfortable. 07/18: Patient on 07/18. Please see nursing documentation for details. DISCHARGE DIAGNOSES 1. Persistent atrial fibrillation with RVR, currently rate controlled. 2. type II SD due to A. fib with RVR. 3. History of coronary artery disease status post stent. 4. 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 4. Hypertension and hypertensive cardiovascular disease 5. Hyperlipidemia. 6. Chronic anemia. 7. History of CVA. 8. Benign prostatic hypertrophy. 9. Cardiomyopathy status post AICD. 10. Gastroesophageal reflux disease Greater than 35 minutes was utilized and coordinating patient's discharge. Impression and plan of care have been directed as dictated by the signing physician. Arabella Baxter nurse practitioner acting as scribe for signing physician. Patient Condition at Discharge: Serious Plan - Discharge Summary Discharge Rx Participant: Yes New Discharge Prescriptions: No Action Atorvastatin [Lipitor] 40 mg PO DAILY Lansoprazole 30 mg PO DAILY Albuterol Inhaler [Ventolin Hfa Inhaler] 2 puff INHALATION RT-Q4H PRN PRN Reason: Dyspnea Apixaban [Eliquis] 5 mg PO BID #60 tab Dapagliflozin Propanediol [Farxiga] 10 mg PO DAILY #30 tab Clopidogrel [Plavix] 75 mg PO DAILY #30 tab lisinopriL 1.25 mg PO DAILY Vit C/E/Zn/Coppr/Lutein/Zeaxan [Preservision Areds 2 Softgel] 1 cap PO DAILY Metoprolol Tartrate [Lopressor] 100 mg PO TID@0900,1600,2100 Cholecalciferol [Vitamin D3 (25 Mcg = 1000 Iu)] 25 mcg PO DAILY [place] 500 mg PO DAILY Potassium Chloride ER [K-Dur 20] 20 meq PO DAILY #30 tab Furosemide [Lasix] 40 mg PO DAILY #30 tablet Isosorbide Mononitrate ER [Imdur] 30 mg PO DAILY Discharge Medication List Atorvastatin [Lipitor] 40 mg PO DAILY 07/17/16 [History] Lansoprazole 30 mg PO DAILY 07/17/16 [History] Cholecalciferol [Vitamin D3 (25 Mcg = 1000 Iu)] 25 mcg PO DAILY 08/06/21 [History] [place] 500 mg PO DAILY 08/11/22 [History] Albuterol Inhaler [Ventolin Hfa Inhaler] 2 puff INHALATION RT-Q4H PRN 08/17/22 [History] Apixaban [Eliquis] 5 mg PO BID #60 tab 08/31/22 [Rx] Clopidogrel [Plavix] 75 mg PO DAILY #30 tab 08/31/22 [Rx] Dapagliflozin Propanediol [Farxiga] 10 mg PO DAILY #30 tab 08/31/22 [Rx] Furosemide [Lasix] 40 mg PO DAILY #30 tablet 08/31/22 [Rx] Potassium Chloride ER [K-Dur 20] 20 meq PO DAILY #30 tab 08/31/22 [Rx] Isosorbide Mononitrate ER [Imdur] 30 mg PO DAILY 07/12/23 [History] Metoprolol Tartrate [Lopressor] 100 mg PO TID@0900,1600,2100 07/12/23 [History] Vit C/E/Zn/Coppr/Lutein/Zeaxan [Preservision Areds 2 Softgel] 1 cap PO DAILY 07/12/23 [History] lisinopriL 1.25 mg PO DAILY 07/12/23 [History] Follow up Appointment(s)/Referral(s): Chanda Pang MD [Primary Care Provider] - 1-2 days Discharge Disposition: STILL PT- FOR INTERIM BILLING - Preliminary Cause of Preliminary Cause of : End-stage dilated ischemic cardiomyopathy
== END 2023-07-17 15:43 | disposition hospice, inpatient (51) | DRG 280 ==
LOC: EC 13:55 → 3SCARD 16:22
PROVIDERS: ADMIT Internal Medicine; ATTEND Internal Medicine
DX: I11.0 Hypertensive heart disease with heart failure (principal); I50.21 Acute systolic (congestive) heart failure; I21.A1 Myocardial infarction type 2; I48.19 Other persistent atrial fibrillation; T82.855A Stenosis of coronary artery stent, initial encounter; N17.9 Acute kidney failure, unspecified; E87.1 Hypo-osmolality and hyponatremia; I27.22 Pulmonary hypertension due to left heart disease; D69.6 Thrombocytopenia, unspecified; I95.9 Hypotension, unspecified; I42.0 Dilated cardiomyopathy; I08.3 Combined rheumatic disorders of mitral, aortic and tricuspid valves; G83.24 Monoplegia of upper limb affecting left nondominant side; Z51.5 Encounter for palliative care; Z66 Do not resuscitate; I69.392 Facial weakness following cerebral infarction; I69.328 Other speech and language deficits following cerebral infarction; D53.9 Nutritional anemia, unspecified; E78.5 Hyperlipidemia, unspecified; I25.5 Ischemic cardiomyopathy; H91.90 Unspecified hearing loss, unspecified ear; N40.0 Benign prostatic hyperplasia without lower urinary tract symptoms; I49.3 Ventricular premature depolarization; I25.2 Old myocardial infarction; Z79.01 Long term (current) use of anticoagulants; E87.5 Hyperkalemia; K21.9 Gastro-esophageal reflux disease without esophagitis; Y71.1 Therapeutic (nonsurgical) and rehabilitative cardiovascular devices associated with adverse incidents; Z95.5 Presence of coronary angioplasty implant and graft; Z87.891 Personal history of nicotine dependence; Z11.52 Encounter for screening for COVID-19; Z95.810 Presence of automatic (implantable) cardiac defibrillator; Z79.02 Long term (current) use of antithrombotics/antiplatelets; Z79.84 Long term (current) use of oral hypoglycemic drugs; Z79.899 Other long term (current) drug therapy; Z82.49 Family history of ischemic heart disease and other diseases of the circulatory system; Z82.5 Family history of asthma and other chronic lower respiratory diseases
CPT/HCPCS: 36415; 71045; 71046; 80048; 80053; 80061; 80162; 83605; 83735; 83880; 84484; 85025; 85027; 85610; 85730; 87636; 93005; 93306; 94640; 94760; 96365; 99291

== ENCOUNTER 2023-07-17 15:44 | Inpatient (IN) | payer OTHER, MEDICARE ==
[2023-07-17] MEDS ORDERED: haloperidoL 1 MG TAB PO PRN (16:03)
[2023-07-17] MEDS ORDERED: ONDANSETRON 4 MG/2 ML VIAL IVP PRN (16:03)
[2023-07-17] MEDS ORDERED: ACETAMINOPHEN TAB 325 MG TAB PO PRN (16:03)
[2023-07-17] MEDS ORDERED: bisacodyL 10 MG SUPP RECTAL PRN (16:07)
[2023-07-17] MEDS ORDERED: ALBUTEROL NEBULIZED 2.5 MG/3 ML INHALATION PRN (16:08)
[2023-07-17] MEDS: MORPHINE SULFATE (100 MG/2 ML) 100 MG in SODIUM CHLORIDE 0.9% 100 ML IV SCH (18:03)
[2023-07-17 18:58] VITALS: TEMP 97.4
[2023-07-17 21:53] VITALS: BP 92/64
[2023-07-17] MEDS: LORazepam 1 MG TAB PO PRN (23:25)
[2023-07-18] MEDS: ATROPINE OPHTH SOLN 1% 5ML BTL SUBLINGUAL PRN (01:58)
[2023-07-18 09:04] VITALS: PULSE 118; RESP 7; BMI 17.9
--- NOTE | 2023-07-19 15:20 | P.PN ---
Progress Note - Text Progress Note Date: 07/18/23 Please see H&P and discharge summary on .
== END 2023-07-18 14:23 | disposition expired | DRG 951 ==
LOC: 3SCARD 15:46
PROVIDERS: ADMIT Internal Medicine; ATTEND Internal Medicine
DX: Z51.5 Encounter for palliative care (principal); I21.A1 Myocardial infarction type 2; I48.19 Other persistent atrial fibrillation; I69.354 Hemiplegia and hemiparesis following cerebral infarction affecting left non-dominant side; I42.0 Dilated cardiomyopathy; I50.84 End stage heart failure; I25.5 Ischemic cardiomyopathy; I11.0 Hypertensive heart disease with heart failure; I25.10 Atherosclerotic heart disease of native coronary artery without angina pectoris; E78.5 Hyperlipidemia, unspecified; K21.9 Gastro-esophageal reflux disease without esophagitis; N40.0 Benign prostatic hyperplasia without lower urinary tract symptoms; H91.90 Unspecified hearing loss, unspecified ear; Z66 Do not resuscitate; Z95.5 Presence of coronary angioplasty implant and graft; I69.392 Facial weakness following cerebral infarction; Z95.810 Presence of automatic (implantable) cardiac defibrillator; Z82.49 Family history of ischemic heart disease and other diseases of the circulatory system; Z79.02 Long term (current) use of antithrombotics/antiplatelets; Z79.899 Other long term (current) drug therapy; I25.2 Old myocardial infarction; Z87.891 Personal history of nicotine dependence; Z79.01 Long term (current) use of anticoagulants; Z79.84 Long term (current) use of oral hypoglycemic drugs